=== PATIENT | female | born 1990 | race Caucasian/White ===

== ENCOUNTER 2020-01-07 13:13 | Outpatient (REF) | payer MEDICAID, SELFPAY ==
[2020-01-10 03:59] LABS: ~HepC Num1 0.09 S/CO (0.00-0.79); ~Hepatitis C Antibody Nonreactive (Nonreactive)
[2020-01-10 04:00] LABS: HIV AB/AG Nonreactive (Nonreactive); HIV Num 1 0.07 S/CO (0.00-0.99)
== END 2020-01-07 13:14 | disposition home or self-care (01) ==
LOC: HO.LAB 13:13
PROVIDERS: Visit Provider Internal Medicine
DX: Z20.6 Contact with and (suspected) exposure to human immunodeficiency virus [HIV] (principal)
CPT/HCPCS: 86803; 87389

== ENCOUNTER → 2020-01-21 15:30 | Outpatient (BNVA) | payer MEDICAID, SELFPAY | PROVIDERS: Visit Provider Internal Medicine | DX: Z76.89 Persons encountering health services in other specified circumstances (principal) ==

== ENCOUNTER → 2020-02-04 14:20 | Outpatient (BNVA) | payer MEDICAID, SELFPAY | PROVIDERS: Visit Provider Obstetrics & Gynecology | DX: B00.9 Herpesviral infection, unspecified (principal) | CPT/HCPCS: 99212 ==

== ENCOUNTER → 2020-02-11 12:46 | Outpatient (BNVA) | payer MEDICAID, SELFPAY | PROVIDERS: Visit Provider Advanced Practice Midwife | DX: B00.9 Herpesviral infection, unspecified (principal) | CPT/HCPCS: 99212 ==

== ENCOUNTER → 2020-07-17 14:36 | Outpatient (BNVA) | payer MEDICAID, SELFPAY | PROVIDERS: Visit Provider Obstetrics & Gynecology ==

== ENCOUNTER 2020-08-01 09:40 | Outpatient (REF) | payer MEDICAID, SELFPAY ==
[2020-08-01 12:22] LABS: HCG Quantitative < 2 mIU/mL
== END 2020-08-01 09:41 | disposition home or self-care (01) ==
LOC: HO.LAB 09:40
PROVIDERS: PCP Internal Medicine Geriatric Medicine; Visit Provider Obstetrics & Gynecology
DX: Z32.02 Encounter for pregnancy test, result negative (principal); N91.2 Amenorrhea, unspecified; Z88.1 Allergy status to other antibiotic agents
CPT/HCPCS: 36415; 84702; 99212

== ENCOUNTER → 2021-01-09 09:41 | Outpatient (BNVA) | payer MEDICAID, SELFPAY | PROVIDERS: PCP Internal Medicine Geriatric Medicine; Referring Provider Internal Medicine Geriatric Medicine; Visit Provider Physician Assistant Surgical ==

== ENCOUNTER → 2021-02-02 08:06 | Outpatient (BNVA) | payer MEDICAID, SELFPAY | PROVIDERS: PCP Internal Medicine Geriatric Medicine; Visit Provider Surgery ==

== ENCOUNTER 2021-02-05 10:06 | Outpatient (REF) | payer MEDICAID, SELFPAY ==
--- NOTE | ~2021-02-05 | XR_ITS ---
EXAMINATION: XR CHEST CLINICAL INFORMATION: Morbid obesity COMPARISON: Previous chest x-ray March 2019 TECHNIQUE: 2 views of the chest were obtained. FINDINGS: No significant abnormality is noted involving the heart, lungs, mediastinum, bony thorax or soft tissues. XR/XR chest 2V IMPRESSION: Unremarkable examination.
--- NOTE | 2021-02-05 10:17 | ECG_ITS ---
Test Reason : morbid obesity Blood Pressure : / mmHG Vent. Rate : 071 BPM Atrial Rate : 071 BPM P-R Int : 138 ms QRS Dur : 078 ms QT Int : 366 ms P-R-T Axes : 045 047 041 degrees QTc Int : 397 ms Sinus rhythm with marked sinus arrhythmia Otherwise normal ECG When compared with ECG of 26-MAR-2019 21:23, Heart rate has decreased Sinus Arrhythmia is new Referred By: Almas Olguin Electronically Signed By:LACEY BRYANT MD
[2021-02-05 10:34] LABS: MANUAL DIFF FLAG NO
[2021-02-05 11:00] LABS: Basophils Absolute Auto 0.1 X10*3/uL (0.0-0.2); Basophils Percent Auto 0.7 % (0-2); Eosinophils Absolute Auto 0.3 X10*3/uL (0.0-0.4); Eosinophils Percent Auto 3.3 % (0-4); Hemoglobin 11.7 g/dl (12.0-16.0); Imm Gran Abs Auto 0.04 X10*3/uL (0.00-0.03); Imm Gran Pct Auto 0.5 % (0.0-0.4); Lymphocytes Absolute Auto 2.1 X10*3/uL (1.2-4.9); Mean Corpuscular HGB Conc 31.6 g/dl (31.0-35.0); Mean Corpuscular Hemoglobin 26.8 pg (27.0-33.0); Mean Corpuscular Volume 84.9 fL (80.0-98.0); Mean Platelet Volume 11.9 fL (9.4-12.3); Monocytes Absolute Auto 0.5 X10*3/uL (0.1-1.2); Monocytes Percent Auto 6.1 % (2-11); Neutrophils Absolute Auto 5.8 x10*3/uL (2.0-8.3); Neutrophils Percent Auto 65.4 % (45-73); Platelet Count 351 X10*3/uL (160-400); Red Blood Count 4.36 X10*6/uL (4.20-5.50); Red Cell Distribution Width 13.7 % (11.0-16.0); White Blood Count 8.8 X10*3/uL (4.8-10.8)
[2021-02-05 11:12] LABS: Estimated Average Glucose 114 mg/dL; Hemoglobin A1c % 5.6 %
[2021-02-05 11:30] LABS: Alanine Aminotransferase 17 U/L (0-31); Albumin Level 4.1 g/dL (3.5-5.0); Alkaline Phosphatase 75 U/L (39-117); Anion Gap 12 (12-20); Aspartate Amino Transferase 16 U/L (5-31); Bilirubin Total 0.2 mg/dL (0.0-1.0); Blood Urea Nitrogen 7 mg/dL (9-16); C Reactive Protein 2.75 mg/dL (< or = 0.50); Calcium 9.2 mg/dL (8.4-10.2); Carbon Dioxide 28 mmol/L (22-29); Chloride 105 mmol/L (96-108); Cholesterol 208 mg/dL; Estimated Glomerular Filt Rate > 60; Glucose Random 110 mg/dL (60-115); HDL Cholesterol 35 mg/dL; Iron 36 mcg/dL (30-160); LDL Cholesterol Calculated 133 mg/dl; Percent Iron Saturation 9 % (15-50); Potassium 4.2 mmol/L (3.3-5.1); Sodium 141 mmol/L (135-145); Total Iron Binding Capacity 398 mcg/dL (228-428); Total Protein 7.9 g/dL (6.5-8.0); Triglycerides 203 mg/dL; Unsaturated Iron Binding 362 ug/dL
[2021-02-05 11:43] LABS: Ferritin 31 ng/mL (10-122); Insulin 21 uU/mL (2-29); TSH reflex Free T4 1.54 uIU/mL (0.32-4.0); Vitamin D 25-OH Total 14.9 ng/mL (>30)
[2021-02-05 12:29] LABS: Folate 17.9 ng/mL (> or = 4.0); Vitamin B12 387 pg/mL (200-900)
[2021-02-06 12:13] LABS: H Pylori Breath Test Negative (Negative)
[2021-02-07 12:12] LABS: Calcium (PTHI) 9.5 mg/dL (8.6-10.2); PTHI 61 pg/mL (14-64)
[2021-02-09 06:27] LABS: Vitamin B1 10 nmol/L (8-30)
[2021-02-09 14:11] LABS: Zinc 69 mcg/dL (60-130)
[2021-02-10 01:46] LABS: Vitamin A 35 mcg/dL (38-98)
== END 2021-02-05 10:07 | disposition home or self-care (01) ==
LOC: HO.XRAY 10:06
PROVIDERS: PCP Pediatrics; Visit Provider Surgery
DX: E66.01 Morbid (severe) obesity due to excess calories (principal); E78.5 Hyperlipidemia, unspecified
CPT/HCPCS: 36415; 71046; 80053; 80061; 82306; 82607; 82728; 82746; 83013; 83036; 83525; 83540; 83970; 84425; 84443; 84590; 84630; 85025; 86140; 93005; 99211

== ENCOUNTER → 2021-03-02 08:02 | Outpatient (BNVA) | payer MEDICAID, SELFPAY | PROVIDERS: PCP Internal Medicine Geriatric Medicine; Visit Provider Surgery ==

== ENCOUNTER → 2021-03-08 08:10 | Outpatient (BNVA) | payer MEDICAID, SELFPAY | PROVIDERS: PCP Internal Medicine Geriatric Medicine; Visit Provider Dietitian, Registered | DX: E66.01 Morbid (severe) obesity due to excess calories (principal) | CPT/HCPCS: 97802 ==

== ENCOUNTER → 2021-04-03 08:03 | Outpatient (BNVA) | payer MEDICAID, SELFPAY | PROVIDERS: PCP Internal Medicine Geriatric Medicine; Visit Provider Surgery ==

== ENCOUNTER → 2021-04-05 08:13 | Outpatient (BNVA) | payer MEDICAID, SELFPAY | PROVIDERS: PCP Internal Medicine Geriatric Medicine; Referring Provider Surgery; Visit Provider Dietitian, Registered | DX: E66.01 Morbid (severe) obesity due to excess calories (principal) | CPT/HCPCS: 97803 ==

== ENCOUNTER → 2021-05-02 08:24 | Outpatient (BNVA) | payer MEDICAID, SELFPAY | PROVIDERS: PCP Internal Medicine Geriatric Medicine; Visit Provider Surgery ==

== ENCOUNTER 2021-05-07 08:45 | Outpatient (REF) | payer MEDICAID, SELFPAY ==
--- NOTE | ~2021-05-07 | US_ITS ---
EXAMINATION: US COMPLETE ABDOMEN WITH LIVER ELASTOGRAPHY CLINICAL INFORMATION: Obesity COMPARISON: Previous CT of the abdomen and pelvis August 2019 TECHNIQUE: Real-time imaging of the abdominal viscera. Noninvasive ultrasound liver fibrosis assessment is performed using Jose ElastPQ point quantification shear wave elastography (2D-SWE) with a C5-2 MHz transducer. Multiple elastography samples are obtained. FINDINGS: PANCREAS: The visualized pancreatic head and body are normal in appearance. The remainder of the pancreas is obscured from visualization by the overlying bowel gas. ABDOMINAL AORTA: The proximal, middle, and distal aortic segments are normal in caliber. INFERIOR VENA CAVA: Visualized portions are normal. LIVER: Liver echotexture is slightly increased. The liver demonstrates normal size, and contour. No focal lesion or intrahepatic biliary duct dilatation. The right lobe measures 15 cm in length. The left lobe measures 11 cm in length. Portal flow is normal/hepatopedal Shear wave liver elastography median stiffness is 1.8 m/s (reference: normal median stiffness is 1.3 m/s or less). IQR/median stiffness to assess sampling precision is 0.02 (reference: good quality data set is IQR/median stiffness of 0.15 or less). GALLBLADDER: Normal. The gallbladder is physiologically distended without evidence of stones, sludge, polyps, wall thickening or pericholecystic fluid. COMMON BILE DUCT: Normal in caliber measuring 0.5 cm in diameter. RIGHT KIDNEY: Normal. No hydronephrosis. No renal calculi or focal parenchymal lesions. The kidney measures 12 cm in maximum dimension. LEFT KIDNEY: Normal. No hydronephrosis. No renal calculi or focal parenchymal lesions. The kidney measures 12 cm in maximum dimension. SPLEEN: Normal. The spleen measures 11.6 cm in maximum dimension. FREE FLUID: None. US/US abdomen comp w elastography IMPRESSION: 1. Impression: Echogenic liver. Limited visualization of the tail the pancreas. 2. Liver elastography: Adequate liver sampling. Suggestive of compensated advanced chronic liver disease but need further test for confirmation. REFERENCE: Society of Radiologists in Ultrasound Liver Stiffness Thresholds (2020): LIVER STIFFNESS THRESHOLDS: *Liver Stiffness equal or less than 1.3 m/s: High probability of being normal. *Liver Stiffness less than 1.7 m/s: In the absence of other known clinical signs, rules out compensated advanced chronic liver disease. *Liver Stiffness 1.7-2.1 m/s: Suggestive of compensated advanced chronic liver disease but need further test for confirmation. *Liver Stiffness over 2.1 m/s: Rules in compensated advanced chronic liver disease. *Liver Stiffness over 2.4 m/s: Suggestive of clinically significant portal hypertension. QUALITY OF DATA SET: *IQR/Median value equal or less than 0.15 implies a quality data set. *IQR/Median value over 0.15 implies a poor quality data set. SIGNIFICANT CHANGE FROM PRIOR EXAM: Significant change if liver stiffness measurement is 10% or greater from prior exam. OTHER CONSIDERATIONS: The stage of liver fibrosis may be overestimated in the setting of acute hepatitis, liver inflammation, elevated liver function tests, hepatic vascular congestion, obstructive cholestasis, non-fasting state, and infiltrative diseases such as amyloidosis and lymphoma. In some patients with NAFLD, the liver stiffness thresholds for compensated advanced chronic liver disease may be lower. In causes other than viral hepatitis and NAFLD, liver stiffness thresholds are not well established.
== END 2021-05-07 08:46 | disposition home or self-care (01) ==
LOC: HO.US 08:45
PROVIDERS: PCP Internal Medicine Geriatric Medicine; Visit Provider Surgery
DX: E66.01 Morbid (severe) obesity due to excess calories (principal); E78.5 Hyperlipidemia, unspecified
CPT/HCPCS: 76705; 76981

== ENCOUNTER 2021-05-09 08:53 | Outpatient (REF) | payer MEDICAID, SELFPAY ==
--- NOTE | ~2021-05-09 | FL_ITS ---
EXAMINATION: XR FLUOROSCOPY UPPER GI WITH AIR CLINICAL INFORMATION: Morbid to severe obesity due to excess calories. COMPARISON: None TECHNIQUE: Routine upper GI exam was performed in upright and lying position. FINDINGS: Following oral administration of thick barium and effervescent granules, there is normal propagation of bolus from the oral cavity through the pharynx, esophagus into stomach without any evidence of obstruction, narrowing or stricture. The course, caliber and peristalsis of the stomach and the duodenal bulb is normal. The mucosal pattern of esophagus, stomach and the duodenum is normal. FLUOROSCOPY TIME: 1.3 minutes. DOSE AREA PRODUCT: 31.449 uGy-m2 (microgray-meter squared). FL/FL upper GI w air IMPRESSION: Unremarkable upper GI air-contrast study.
== END 2021-05-09 08:54 | disposition home or self-care (01) ==
LOC: HO.XRAY 08:53
PROVIDERS: PCP Internal Medicine Geriatric Medicine; Visit Provider Surgery
DX: E66.01 Morbid (severe) obesity due to excess calories (principal)
CPT/HCPCS: 74246

== ENCOUNTER → 2021-06-29 08:14 | Outpatient (BNVA) | payer MEDICAID, SELFPAY | PROVIDERS: PCP Internal Medicine Geriatric Medicine; Visit Provider Surgery | DX: Z13.89 Encounter for screening for other disorder (principal) ==

== ENCOUNTER → 2021-07-20 14:00 | Outpatient (BNVA) | payer MEDICAID, SELFPAY | PROVIDERS: PCP Internal Medicine Geriatric Medicine; Referring Provider Internal Medicine Geriatric Medicine; Visit Provider Physician Assistant Surgical ==

== ENCOUNTER → 2021-08-06 08:16 | Outpatient (BNVA) | payer MEDICAID, SELFPAY | PROVIDERS: PCP Internal Medicine Geriatric Medicine; Visit Provider Surgery | DX: Z13.89 Encounter for screening for other disorder (principal) ==

== ENCOUNTER → 2021-08-10 12:08 | Outpatient (BNVA) | payer MEDICAID, SELFPAY | PROVIDERS: PCP Internal Medicine Geriatric Medicine; Referring Provider Internal Medicine Geriatric Medicine; Visit Provider Physician Assistant Surgical | DX: Z13.89 Encounter for screening for other disorder (principal) ==

== ENCOUNTER → 2021-08-21 15:02 | Outpatient (BNVA) | payer MEDICAID, SELFPAY | PROVIDERS: PCP Internal Medicine Geriatric Medicine; Referring Provider Internal Medicine Geriatric Medicine; Visit Provider Physician Assistant Surgical | DX: Z13.89 Encounter for screening for other disorder (principal) ==

== ENCOUNTER 2021-09-19 06:34 | Inpatient (IN) | payer MEDICAID, SELFPAY ==
[2021-09-14 11:43] LABS: MANUAL DIFF FLAG NO
[2021-09-14 12:08] LABS: Basophils Percent Auto 0.7 % (0-2); Eosinophils Absolute Auto 0.2 X10*3/uL (0.0-0.4); Eosinophils Percent Auto 3.3 % (0-4); Hematocrit 35.4 % (37.0-47.0); Imm Gran Abs Auto 0.02 X10*3/uL (0.00-0.03); Imm Gran Pct Auto 0.4 % (0.0-0.4); Lymphocytes Absolute Auto 1.2 X10*3/uL (1.2-4.9); Lymphocytes Percent Auto 25.9 % (20-40); Mean Corpuscular HGB Conc 31.1 g/dl (31.0-35.0); Mean Corpuscular Hemoglobin 26.3 pg (27.0-33.0); Mean Corpuscular Volume 84.5 fL (80.0-98.0); Monocytes Absolute Auto 0.5 X10*3/uL (0.1-1.2); Neutrophils Absolute Auto 2.7 x10*3/uL (2.0-8.3); Neutrophils Percent Auto 59.7 % (45-73); Platelet Count 319 X10*3/uL (160-400); Red Blood Count 4.19 X10*6/uL (4.20-5.50); Red Cell Distribution Width 14.7 % (11.0-16.0); White Blood Count 4.6 X10*3/uL (4.8-10.8)
[2021-09-14 12:29] LABS: INTERNATIONAL NORM RATIO 1.1 (0.9-1.1); Prothrombin Time 12.3 SEC (9.9-13.0)
[2021-09-14 12:32] LABS: Partial Thromboplastin Time 40.2 SEC (24.1-38.0)
[2021-09-14 13:11] LABS: Alanine Aminotransferase 19 U/L (0-31); Albumin Level 4.2 g/dL (3.5-5.0); Alkaline Phosphatase 74 U/L (39-117); Anion Gap 11 (12-20); Aspartate Amino Transferase 18 U/L (5-31); Bilirubin Total 0.4 mg/dL (0.0-1.0); Blood Urea Nitrogen 7 mg/dL (9-16); C Reactive Protein 3.28 mg/dL (< or = 0.50); Calcium 9.1 mg/dL (8.4-10.2); Carbon Dioxide 27 mmol/L (22-29); Chloride 107 mmol/L (96-108); Cholesterol 176 mg/dL; Estimated Glomerular Filt Rate > 60; Glucose Random 96 mg/dL (60-115); HDL Cholesterol 32 mg/dL; LDL Cholesterol Calculated 124 mg/dl; Potassium 4.3 mmol/L (3.3-5.1); Sodium 141 mmol/L (135-145); Total Protein 7.5 g/dL (6.5-8.0); Triglycerides 104 mg/dL
[2021-09-14 13:14] LABS: Estimated Average Glucose 108 mg/dL; Hemoglobin A1c % 5.4 %
[2021-09-14 13:33] LABS: Insulin 18 uU/mL (2-29); TSH reflex Free T4 0.75 uIU/mL (0.32-4.0)
--- NOTE | 2021-09-16 00:09 | MHC.SHP ---
Pre-Procedural Eval Section A Date of Service: 09/16/21 The patient is an INPATIENT: Yes The History & Physical has been completed within 30 days and I have reviewed it.: Yes Section B Chief Complaint: morbid obesity Relevant Family History (Specify if Yes): No Relevant Social History: None Present Medications: None Medical History: No relevant PMH History of Previous Operations: No relevant previous surgery Allergies: Allergies Allergy/AdvReac Type Severity Reaction Status Date / Time latex Allergy Severe Anaphylaxis Verified 09/13/21 15:11 red dye Allergy Severe Anaphylaxis Verified 09/13/21 15:11 amoxicillin Allergy Unknown UNKOWN Verified 09/13/21 15:11 Review of Systems Sugical H&P ROS: Negative: Constitution, Cardiovascular, Respiratory, Neurological, Psychiatric, Hem-Onc, Allergic/Immunologic, Gastrointestinal, Genitourinary, Musculoskeletal, Integumentary, Endocrine and Eyes/Ears/Nose/Throat Exam Surgical H&P Exam: Normal: HEENT, Normal: Heart, Normal: Lungs, Normal: Extremities, Normal: Abdomen, Normal: Skin and Normal: Neurological Plan Diagnosis/Plan: Unchanged I have reviewed the history and physical and performed a pertinent physical examination on my patient. No changes have occurred unless specified.
[2021-09-17 11:22] VITALS: BMI 42.5
--- NOTE | 2021-09-18 09:05 | P.CONAN_ITS ---
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) Herpes simplex virus (HSV) infection (Acute) Amenorrhea (Acute) Morbid obesity (Acute) Hyperlipidemia (Acute) Depression (Acute) Anxiety (Acute) Knee pain (Acute) MDD (major depressive disorder) (Acute) JEFFERY (generalized anxiety disorder) (Acute) Anemia (Acute) Vitamin D deficiency (Acute) Vitamin B12 deficiency (Acute) Past Medical History Medical History Anemia Anxiety Back pain delivery delivered Depression Hyperlipidemia Migraine with aura Family History Family History Father Mental health disorder Mother Acute arthritis Carpal tunnel syndrome Sister Cervical cancer Sister No problems noted. Brother No problems noted. Son No problems noted. Surgical History Surgical History H/O breast biopsy Hx of section Social History Social History (Updated 02/02/21 @ 11:35 by Armando Chow[facility]) Are you a primary direct support professional caregiver to a significant other at home: Yes (son age 5, mother will help after surgery) Do you presently have visiting nurse or other home services: No Alcohol intake: never Patient Tobacco Use Status: Former Tobacco user Quit Date: 2015 Tobacco use type: Cigarette Use of substances other than those prescribed or required for medical reasons: No Have you been hit, kicked, punched, or otherwise hurt by someone within the past year? If so, by whom?: No Are you DNR?: No Advance Directives: No (will bring dos) Advance Directives Information Provided: No Advance Directives on File: No Recently lost weight without trying: No Patient : No FDLMP: 08/29/2021 : No Poor oral hygiene: No Sexual orientation: Straight/Heterosexual Gender identity: Female Meds Allergies Allergy/AdvReac Type Severity Reaction Status Date / Time latex Allergy Severe Anaphylaxis Verified 09/17/21 11:21 red dye Allergy Severe Anaphylaxis Verified 09/17/21 11:21 amoxicillin Allergy Intermediate Blisters, Verified 09/17/21 11:21 hives Home Medications Medication Instructions Recorded Confirmed Last Taken Type fluticasone propionate 50 2 spray intranasal DAILY 01/09/21 09/13/21 Unknown History mcg/actuation nasal spray,suspension Exam Exam Date and Time: September 18, [id number] Height,Weight and Vital Signs: Height 5 ft 4 in Weight 112.491 kg Pertinent Lab Results Pertinent Lab Results: Laboratory Tests 09/14/21 09/14/21 09/14/21 11:39 11:42 11:42 WBC 4.6 L RBC 4.19 L Hgb 11.0 L Hct 35.4 L MCV 84.5 MCH 26.3 L MCHC 31.1 RDW 14.7 Plt Count 319 MPV 12.0 Immature Gran % (Auto) 0.4 Neut % (Auto) 59.7 Lymph % (Auto) 25.9 [place] % (Auto) 10.0 Eos % (Auto) 3.3 Baso % (Auto) 0.7 Lymph # (Auto) 1.2 [place] # (Auto) 0.5 Eos # (Auto) 0.2 Baso # (Auto) 0.0 Abs Immat Gran (auto) 0.02 Absolute Neuts (auto) 2.7 Absolute Nucleated RBC 0.000 Nucleated RBC % (auto) 0.0 PT 12.3 INR 1.1 APTT 40.2 H Sodium Potassium Chloride Carbon Dioxide Anion Gap BUN Creatinine Estim Creat Clear Calc Estimated GFR Random Glucose Estimat Average Glucose Hemoglobin A1c % Insulin Level Calcium Total Bilirubin AST ALT Alkaline Phosphatase C-Reactive Protein Total Protein Albumin Triglycerides Cholesterol LDL Cholesterol, Calc HDL Cholesterol TSH Blood Type O Negative Antibody Screen NEGATIVE 09/14/21 09/14/21 11:42 11:42 WBC RBC Hgb Hct MCV MCH MCHC RDW Plt Count MPV Immature Gran % (Auto) Neut % (Auto) Lymph % (Auto) [place] % (Auto) Eos % (Auto) Baso % (Auto) Lymph # (Auto) [place] # (Auto) Eos # (Auto) Baso # (Auto) Abs Immat Gran (auto) Absolute Neuts (auto) Absolute Nucleated RBC Nucleated RBC % (auto) PT INR APTT Sodium 141 Potassium 4.3 Chloride 107 Carbon Dioxide 27 Anion Gap 11 L BUN 7 L Creatinine 0.70 Estim Creat Clear Calc TNP Estimated GFR > 60 Random Glucose 96 Estimat Average Glucose 108 Hemoglobin A1c % 5.4 Insulin Level 18 Calcium 9.1 Total Bilirubin 0.4 AST 18 ALT 19 Alkaline Phosphatase 74 C-Reactive Protein 3.28 H Total Protein 7.5 Albumin 4.2 Triglycerides 104 Cholesterol 176 LDL Cholesterol, Calc 124 HDL Cholesterol 32 TSH 0.75 Blood Type Antibody Screen Narrative Narrative: EKG 01/2021 Vent. Rate : 071 BPM ? ? Atrial Rate : 071 BPM ?? P-R Int : 138 ms? QRS Dur : 078 ms ? ? QT Int : 366 ms ? ? ? P-R-T Axes : 045 047 041 degrees ?? QTc Int : 397 ms ? 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) Herpes simplex virus (HSV) infection (Acute) Amenorrhea (Acute) Morbid obesity (Acute) Hyperlipidemia (Acute) Depression (Acute) Anxiety (Acute) Knee pain (Acute) MDD (major depressive disorder) (Acute) JEFFERY (generalized anxiety disorder) (Acute) Anemia (Acute) Vitamin D deficiency (Acute) Vitamin B12 deficiency (Acute) Denies MARLEEN Past Medical History Medical History Anemia Anxiety Back pain delivery delivered Depression Hyperlipidemia Migraine with aura Family History Family History Father Mental health disorder Mother Acute arthritis Carpal tunnel syndrome Sister Cervical cancer Sister No problems noted. Brother No problems noted. Son No problems noted. Family history of problems with anesthesia: No Surgical History Surgical History H/O breast biopsy Hx of section History of Problems with Anesthesia: No (Difficult IV stick) Social History Social History (Updated 02/02/21 @ 11:35 by Armando [facility]) Are you a primary direct support professional caregiver to a significant other at home: Yes (son age 5, mother will help after surgery) Do you presently have visiting nurse or other home services: No Alcohol intake: never Patient Tobacco Use Status: Former Tobacco user Quit Date: 2015 Tobacco use type: Cigarette Use of substances other than those prescribed or required for medical reasons: No Have you been hit, kicked, punched, or otherwise hurt by someone within the past year? If so, by whom?: No Are you DNR?: No Advance Directives: No (will bring dos) Advance Directives Information Provided: No Advance Directives on File: No Recently lost weight without trying: No Patient : No FDLMP: 08/29/2021 : No Poor oral hygiene: No Sexual orientation: Straight/Heterosexual Gender identity: Female Meds Allergies Allergy/AdvReac Type Severity Reaction Status Date / Time latex Allergy Severe Anaphylaxis Verified 09/17/21 11:21 red dye Allergy Severe Anaphylaxis Verified 09/17/21 11:21 amoxicillin Allergy Intermediate Blisters, Verified 09/17/21 11:21 hives Home Medications Medication Instructions Recorded Confirmed Last Taken Type fluticasone propionate 50 2 spray intranasal DAILY 01/09/21 09/13/21 Unknown History mcg/actuation nasal spray,suspension Exam Height,Weight and Vital Signs: Height 5 ft 4 in Weight 112.491 kg Vital Signs Temp Pulse Resp BP Pulse Ox O2 Del Method 09/19/21 06:46 96.9 F 76 18 118/76 99 Room Air Pertinent Lab Results Pertinent Lab Results: Laboratory Tests 09/14/21 09/14/21 09/14/21 11:39 11:42 11:42 WBC 4.6 L RBC 4.19 L Hgb 11.0 L Hct 35.4 L MCV 84.5 MCH 26.3 L MCHC 31.1 RDW 14.7 Plt Count 319 MPV 12.0 Immature Gran % (Auto) 0.4 Neut % (Auto) 59.7 Lymph % (Auto) 25.9 [place] % (Auto) 10.0 Eos % (Auto) 3.3 Baso % (Auto) 0.7 Lymph # (Auto) 1.2 [place] # (Auto) 0.5 Eos # (Auto) 0.2 Baso # (Auto) 0.0 Abs Immat Gran (auto) 0.02 Absolute Neuts (auto) 2.7 Absolute Nucleated RBC 0.000 Nucleated RBC % (auto) 0.0 PT 12.3 INR 1.1 APTT 40.2 H Sodium Potassium Chloride Carbon Dioxide Anion Gap BUN Creatinine Estim Creat Clear Calc Estimated GFR Random Glucose Estimat Average Glucose Hemoglobin A1c % Insulin Level Calcium Total Bilirubin AST ALT Alkaline Phosphatase C-Reactive Protein Total Protein Albumin Triglycerides Cholesterol LDL Cholesterol, Calc HDL Cholesterol TSH Blood Type O Negative Antibody Screen NEGATIVE 09/14/21 09/14/21 11:42 11:42 WBC RBC Hgb Hct MCV MCH MCHC RDW Plt Count MPV Immature Gran % (Auto) Neut % (Auto) Lymph % (Auto) [place] % (Auto) Eos % (Auto) Baso % (Auto) Lymph # (Auto) [place] # (Auto) Eos # (Auto) Baso # (Auto) Abs Immat Gran (auto) Absolute Neuts (auto) Absolute Nucleated RBC Nucleated RBC % (auto) PT INR APTT Sodium 141 Potassium 4.3 Chloride 107 Carbon Dioxide 27 Anion Gap 11 L BUN 7 L Creatinine 0.70 Estim Creat Clear Calc TNP Estimated GFR > 60 Random Glucose 96 Estimat Average Glucose 108 Hemoglobin A1c % 5.4 Insulin Level 18 Calcium 9.1 Total Bilirubin 0.4 AST 18 ALT 19 Alkaline Phosphatase 74 C-Reactive Protein 3.28 H Total Protein 7.5 Albumin 4.2 Triglycerides 104 Cholesterol 176 LDL Cholesterol, Calc 124 HDL Cholesterol 32 TSH 0.75 Blood Type Antibody Screen Laboratory Results - last 24 hr 09/18/21 09/19/21 12:56 06:12 Urine Test NEGATIVE COVID-19 (YAMILKA) Negative COVID-19 Clin Com See Note Airway Mallampati Class: II TM Dist: >3cm Neck ROM: Full Loose/Missing/Broken Teeth: No (Per patient) Heart: RRR Lungs: Diminished but clear Assessment and Plan Assessment Anesthesia Assessment: Anesthesia Plan Discussed Final Anesthetic Review Family History of Problems with Anesthesia: No History of Problems with Anesthesia: No (Difficult IV stick) NPO: Yes ASA Class: III Final Preanesthetic Review: No Changes in Pt Med Stat, Meds/Allgs Chart Reviewed, Consent Obtained/Reviewed and Anes Risks/Benef Reviewed Patient Risk: Intermediate Procedure Risk: Intermediate Assessment/Block/Sedation in SS: Assess/Block/Sedation-SS Anesthetic Plan Anesthetic Plan: GA Disposition: Standard PACU and Inp. Admit - Standard Bed
[2021-09-18 13:31] LABS: COVID-19 Test Negative (Negative)
[2021-09-19] VITALS (13 sets, daily range): BP systolic 118–169; BP diastolic 75–98; PULSE 60–83; RESP 13–18; TEMP 36.1–37.1; O2SAT 95–100
[2021-09-19 06:36] LABS: UPreg QC Valid YES; Urine Pregnancy NEGATIVE (NEGATIVE)
[2021-09-19] MEDS: Lactated Ringers 1,000 ML 999 ML IV (06:51)
--- NOTE | 2021-09-19 06:52 | PC.NURSE ---
Difficult IV acess. Preop calls for 2 IV insertions. Able to start one IV in right hand. Second IV to be done in OR
[2021-09-19] MEDS: Lactated Ringers 1,000 ML 100 ML IVCONT ×3 (07:24→19:28)
[2021-09-19] MEDS: levoFLOXacin/D5W 500 MG/100 ML PIGGYBACK 100 MG IV (07:56)
--- NOTE | 2021-09-19 07:58 | PHA.MEDREC ---
Pharmacy Consult ? Medication Reconciliation Pharmacy has completed the medication reconciliation.
--- NOTE | 2021-09-19 11:11 | P.BOP_ITS ---
Brief Operative Note Date of Service: 09/19/21 Pre-op diagnosis: Morbid obesity with comorbidities (see below) Post-op diagnosis: same Procedure: INITIAL PATIENT BMI ON PRESENTATION AT OUR OFFICE: 44 kg/m2 LAST BMI BEFORE SURGERY: 42 kg/m2 COMORBIDITIES:headaches, back/knee pain, depression, anxiety, hyperlipidemia, liver steatosis ?The patient presented to the Weight Management Program with significant obesity that was negatively impacting the patient's comorbidities as listed above.? The program is a phased program with a special focus on preoperative medical weight management to promote substantial weight loss and prepare the patients for the second phase of the program: bariatric surgery. The patient participated in an intensive weekly lifestyle ?intervention and exercise program during which the patient ?has lost between the initial office visit and the last preoperative visit 12.2 lbs, or 4.67% of initial actual body weight. It was deemed appropriate for the patient to now have bariatric surgery. In light of the current Covid-19 pandemic and the well documented strong association of obesity and increased risk of worse outcomes if infected with Covid-19 (REFERENCES: https://pubmed.ncbi.nlm.nih.gov/20726702/ ,? https://pubmed.ncbi.nlm.nih.gov/93217847/ ), any delay in undergoing bariatric surgery may lead to the patient's worsening health condition and increased?risk of more severe Covid-19 disease if infected. In addition a recent?study from [facility] published in [facility] on 03/19/2021 ([id number]) found that, among patients with obesity, substantial weight loss achieved with surgery was associated with improved outcomes of COVID-19 infection. The findings suggest that obesity can be a modifiable risk factor for the severity of COVID-19 infection. In addition, the patient met the BMI-criteria for bariatric surgery based on the BMI on initial presentation. The patient should not be penalized for achieving such weight loss because ?it is not sustainable long-term without surgical intervention and it was achieved in preparation for bariatric surgery ?under my direction and based on my published research ([email or web address]).[email or web address] and? https://www.soard.org/article/[email or web address](56)95255-X/pdf ) ?that a 10% pr eoperative weight loss improves long-term weight loss after surgery and reduces perioperative complications.? Insurance carriers such as [facility] have endorsed my recommendations ?and have included in their policies criteria to include a 10% preoperative weight loss requirement. PROCEDURE: Esophago-gastroscopy, laparoscopic lysis of adhesions, laparoscopic sleeve gastrectomy and laparoscopic gastropexy INDICATIONS: This is a 30 year-old female who was electively scheduled for laparoscopic, possibly open sleeve gastrectomy. The risks and complications of the procedure were discussed with the patient in advance, particularly the possibility of ; pulmonary embolism; staple line leak; bleeding; GERD; cardiac, pulmonary, or renal complications; as well as long-term problems such as insufficient weight loss, vitamin deficiency, strictures, or ulcers. The patient understood all the risks, and was in agreement to proceed with surgery. DESCRIPTION OF PROCEDURE: After informed consent was obtained from the patient, the patient was given preoperative antibiotics, and was transferred to the operating room. After successful induction of general anesthesia, pneumatic compression devices were placed on both lower extremities. An upper endoscopy was performed next. The oropharynx and esophagus appeared to be within normal limits. There was no diaphragmatic hernia present consistent with the findings of the preoperative upper GI. The stomach was entered. Then after all fluid and air were suctioned and the stomach was fully decompressed, the scope was withdrawn and secured in the mid esophagus. The patient was then prepped and draped in the usual sterile manner, and abdominal access was established at the right upper quadrant with the Fred technique. A 12 mm blunt port was inserted, and the abdomen was insufflated with CO2 to a pressure of 15 mmHg. Under direct visualization, additional ports were placed, specifically two 5 mm Versi-step ports to the left upper quadrant, and a 5 mm Versi-Step port to the right upper quadrant. 1% lidocaine plain was used to infiltrate all port sites as well as all fascia defects. Following that, the patient was placed in a steep reverse Trendelenburg position. An additional 5 mm port was placed to the right flank for the Mediflex retractor that was used to retract the left lobe of the liver. The gastro-esophageal fat pad was opened with the ultrasonic device (Thunderbeat, Olympus) and the anterior esophagus and hiatus were exposed. The angle of His was opened with the ultrasonic device the fundus of the stomach from any diaphragmatic and splenic attachments. I then opened the gastrocolic ligament between the transverse colon and the greater curvature of the stomach with the ultrasonic device to enter the lesser sac and facilitate the ligation of the short gastric vessels. I started at a mid-point along the greater curvature and using the Thunderbeat, all short gastric vessels were divided all the way to the angle of His until the left dulce was completely dissected at its entirety. I then divided the gastro-colic ligament distally to a distance of about 3-4 cm proximal to the pylorus. There were extensive congenital adhesions between the pancreas and posterior gastric wall. Those were lysed completely with the ultrasonic device. Adhesiolysis took approximately 45 min to complete. The stomach was then divided transversely with one Endo FORREST-45 purple, one FORREST- 45 orange load and four FORREST-60 articulating orange loads using the AEON stapler and loads. Every effort was made that the gastric sleeve had a tubular shape and an even caliber throughout. Once the sleeve resection was completed, the staple line of the gastric sleeve was reinforced with Hemoclips. The resected stomach was retrieved without difficulty from the Fred port. A gastropexy was then performed in order to prevent postoperative GERD and partial gastric volvulus. Several interrupted 2.0 Surgidac sutures were placed between the sleeve's staple line and the previously divided greater omentum and gastro-colic ligament using the Endo-Stitch device. ?An upper endoscopy was performed. There was no narrowing at the GE junction. T he scope was easily advanced all the way to the pylorus which was clearly visualized. There was no narrowing anywhere and the sleeve's caliber was even throughout. The sleeve's staple line was inspected and there was no evidence of ischemia, bleeding or dehiscence. At that point the gastroscope was withdrawn from the patient?s mouth while we were decompressing the bowel and the stomach from any remaining air. I looked into the lesser sac to see how the sleeve was situating and it was situating well. There was no bleeding from the staple line, spleen, or short gastric vessels. The Mediflex retractor was removed, and the undersurface of the liver was inspected and there was no bleeding. The patient was placed in supine position. I closed the fascial defect of the 12 mm port site with a figure of eight #1 Polysorb suture. Then 40ml of Ropivacaine plain with 10 mg of Dexamethasone were used to infiltrate the fascial closure as well as all skin incisions. A total of 7ml of Zynrelef was applied in the Fred wound. At this point, the abdomen was deflated, all ports were removed under direct vision, and no bleeding was noted from any of the port sites. The skin incisions were irrigated with saline and were closed with 4-0 absorbable monofilament sutures. Steri-Strips and OpSites were used to cover all incisions. The patient was extubated and was transferred in stable condition to the recovery room for further care. I was present and performed all castro parts of the procedure. Ms. Michaelsaishwarya was the assistant professor of spanish. There were no residents to assist with this case. Tk Olguin MD, PhD, FACS Surgeon: Almas Olguin MD Anesthesia: GETA, local and other (TAP block & 7ml of Zynrelef) Was an Internet Specialist used for this Procedure?: Yes Internet Specialist: Yadira Crawford Estimated blood loss (mL): 10 IV fluids (mL): 3,000 Urine output (mL): 0 (No Byrd to record) Pathology: other (Stomach) Condition: stable Disposition: PACU
[2021-09-19] MEDS: ondansetron HCL 4 MG/2 ML VIAL IVPUSH ×2 (11:14→20:50)
--- NOTE | 2021-09-19 11:15 | PM.PNGS ---
Subjective Subjective Date of Service: 09/20/21 Interval history: Feels well. Mild incisional pain. She is tolerating phase 1 bariatric diet Physical Exam Vital Signs: Vital Signs: Last Vital Signs Temp 96.9 F 09/19/21 06:46 Pulse 76 09/19/21 06:46 Resp 18 09/19/21 06:46 BP 118/76 09/19/21 06:46 Pulse Ox 99 09/19/21 06:46 O2 Del Method 09/19/21 06:46 BMI result Body Mass Index 42.5 GI: Inspection: Yes normal to inspection, Yes incision (clean, dry and intact) and Yes obesity Extrem: Right lower extremity: normal to inspection (no calf tenderness) Left lower extremity: normal to inspection (no calf tenderness) Objective Data Active Medications Fentanyl (Fentanyl Citrate/Pf 100 Mcg/2 Ml Vial) 25 mcg IVPUSH Q5M PRN; Protocol PRN Reason: Pain, Moderate (Pain Scale 4-6 Hydromorphone HCl (Hydromorphone Hcl 0.5 Mg/0.5 Ml Syringe) 0.25 mg IVPUSH Q5M PRN; Protocol PRN Reason: Pain, Severe (Pain Scale 7-10) Hydroxyzine HCl (Hydroxyzine Hcl 25 Mg Tablet) 12.5 - 25 mg PO BID PRN PRN Reason: anxiety Lactated Ringer's (Lr) 1,000 mls @ 100 mls/hr IVCONT .Q10H KULDIP Last Admin: 09/19/21 07:24 Dose: 100 mls/hr Documented By: KYA Promethazine HCl 6.25 mg/ (Sodium Chloride) 50.25 mls @ 201 mls/hr IV ONCE PRN PRN Reason: Nausea and Vomiting Ondansetron HCl (Ondansetron Hcl 4 Mg/2 Ml Vial) 4 mg IVPUSH ONCE PRN PRN Reason: Nausea and Vomiting Labs CBC & Chem 7: 09/20/21 05:34 09/20/21 05:34 Labs: Laboratory Results - last 24 hr 09/18/21 09/19/21 12:56 06:12 Urine Test NEGATIVE COVID-19 (YAMILKA) Negative COVID-19 Clin Com See Note Procedures Date of Service Date of Service: 09/20/21 Progress Note: A&P Assessment and plan (1) Morbid obesity: Status: Acute Assessment and Plan: s/p laparoscopic sleeve gastrectomy, lysis of adhesions and gastropexy Doing well Will check am labs and if OK the patient will be discharged home (2) Knee pain: Status: Acute (3) JEFFERY (generalized anxiety disorder): Status: Acute (4) Hyperlipidemia: Status: Acute (5) Depression: Status: Acute (6) Steatosis, liver: Status: Acute (7) Congenital intra-abdominal adhesions: Status: Acute (8) Status post sleeve gastrectomy: Status: Acute Time Spent With Patient Time: Total time spent is greater than 50% in coordination of care (as documented) at patient's floor/unit and/or counseling patient: Quality Stroke Does the patient have a stroke diagnosis?: No VTE Prior VTE?: No VTE Risk Level:: Surgical - moderate VTE Device Contraindication: N/A - Device Ordered VTE Drug Contraindication: Treatment Not Indicated
--- NOTE | 2021-09-19 11:27 | P.DS_ITS ---
DS: Providers Provider Date of Service: 09/20/21 Date of admission: 09/19/21 06:34 Date of discharge: 09/20/21 Primary care physician: Javy Pena MD DS: Diagnosis Discharge Diagnosis (1) Morbid obesity: Status: Acute (2) Status post sleeve gastrectomy: Status: Acute (3) Knee pain: Status: Acute (4) JEFFERY (generalized anxiety disorder): Status: Acute (5) Hyperlipidemia: Status: Acute (6) Depression: Status: Acute (7) Steatosis, liver: Status: Acute DS: Summary Time Spent with Patient Time attestation: Total time spent providing and/or coordinating discharge services: Discharge coordination time: Less than 30 minutes Quality: Safe Use of Opioids Does Pt have an Active Cancer Diagnosis on the Problem List?: No Quality: Stroke Does the patient have a stroke diagnosis?: No Physical Exam Vital Signs: Vital Signs: Last Vital Signs Temp 98 F 09/19/21 11:05 Pulse 72 09/19/21 11:10 Resp 14 09/19/21 11:10 BP 132/97 H 09/19/21 11:10 Pulse Ox 98 09/19/21 11:10 O2 Del Method 09/19/21 11:10 O2 Flow Rate 6 09/19/21 11:10 BMI result Body Mass Index 42.5 DS: Data Data Completed and Pending Pending studies at discharge: Pending at discharge 09/19/21 10:04 Surgical [PTH] Routine Labs on day of discharge: Laboratory Results - last 24 hr 09/18/21 09/19/21 12:56 06:12 Urine Test NEGATIVE COVID-19 (YAMILKA) Negative COVID-19 Clin Com See Note Discharge Plan Discharge Patient Disposition: Home, Self-Care Discharge Diagnosis: s/p sleeve gastrectomy and gastropexy Referrals: Javy Pena MD [Primary Care Provider] - 1 Week Discharge Medications: Continued hydroxyzine HCl 25 mg tablet 0.5 - 1 tab PO BID PRN (Reason: anxiety) pantoprazole 40 mg tablet,delayed release (DR/EC) 40 mg PO DAILY Qty: 30 2RF sucralfate 100 mg/mL suspension 10 ml PO BID Qty: 400 2RF ondansetron HCl 4 mg tablet 4 mg PO Q12H Qty: 20 0RF fluticasone propionate 50 mcg/actuation spray,suspension 2 spray intranasal DAILY Discontinued multivitamin Tablet 1 tab PO DAILY norethindrone (contraceptive) 0.35 mg tablet 1 tab PO DAILY polyethylene glycol 3350 [Miralax] 17 gram powder in packet 17 g PO DAILY Qty: 14 0RF Rx Instructions: Mix each packet with 8oz of water and do 7 packets on 09/17/21 and another 7 packets on 09/18/21 Vitron-C 65 mg iron- 125 mg tablet,delayed release (DR/EC) 1 tab PO DAILY Qty: 30 2RF Rx Instructions: swallow whole; do not chew/break/dissolve/open cholecalciferol (vitamin D3) 125 mcg (5,000 unit) capsule 125 mcg PO DAILY Qty: 30 2RF Discharge Orders: Discharge Order (Routine); Ordered 09/20/21 Ordered By: Almas Olguin Activity on Discharge: No heavy lifting Stand Alone Forms: Patient Portal Discharge page Care Plan Goals: weight loss Health Concerns: morbid obesity Plan of Treatment: No tub baths, sex or returning to work until discussed at first post op appointment. No exercise, alcohol, tobacco or illegal drug use. Continue to use incentive spirometer hourly while awake. Walk in home for 5- 10 minutes every 2 hours during the first week. Follow all instructions in the bariatric handbook and call with any questions.Discharge Instructions 1. Please call your doctor or come back to the emergency room should any new sy mptoms arise. 2. You will receive a courtesy call from [facility] 24-48 hours after discharge. 3. Activity: abstain from alcohol, practice limited stair climbing, no bending, no driving, no exercise, no illicit substances, no lifting, no sex, no tub bath, no work. 4. Diet: continue as discussed with Dr. Olguin. 5. Dressing Change/Wound Care: Your incision is covered by clear bandages and guaze underneath. If the area is tender, you may apply an ice pack for short intervals (no more than 20 minutes on, followed by at least 20 minutes off). Do not apply heat. Do not use creams, lotions, or topical antibiotics unless instructed to do so by your surgeon. These can cause infection or allergic reaction. 6. Call your doctor if: - Your temperature exceeds 101.5 F - You experience excessive pain or swelling - You have an unexpected reaction to medication - You have excessive bleeding - You experience continued vomiting/nausea - Your incision begins to separate - Your incision shows signs of infection such as increased redness, swelling, excessive pain, heat, or drainage (light blood or clear fluid is normal) 7. General instructions: No lifting greater than 5 lbs for the next 4 weeks[address] within 24 hours of taking narcotic pain medications. If you do not move your bowels in the next 2 days, please take milk of magnesia over the counter. Please follow the post op diet and do not advance your diet until you are seen in the office in about 2 weeks. Please walk around your home every hour or two to prevent blood clots from forming in your legs. You do not need to wake from sleeping to walk. Please sleep in a bed or couch to prevent kinking at the hips and knees. Please take your incentive spirometer (your lung blending line attendant) home with you and use it for the next few days to prevent pneumonias. You may shower, no hot tubs, baths or swimming pools. Please call the office with any questions or concerns such as increasing abdominal pain, fever, chills, shortness of breath, chest pain, leg pain or swelling, or redness or drainage from your incisions. Please stay on stage 3 diet which includes sugar free clear liquids such as ice pops and jello and broth and crystal light. Avoid all carbonation. Please drink 3 protein shakes with at least 25-30 grams of protein daily or 3 of the Celebrate 4:1 shakes which can be purchased in our office. The Celebrate shakes have all of the bariatric vitamins you need if you consume these shakes. If you are drinking other protein shakes, you will need to purchase the Celebrate multivitamins and calcium that we provide in the office (they will provide all the vitamins you need). Please make sure you are consuming at least 40-60 ounces of water in addition to your 3 protein shakes daily. Do not hesitate to contact the office with any questions at . The patient's medical history has been reviewed and they are considered low risk for post op DVT and therefore DVT prophylaxis is not considered necessary. Travel after surgery was reviewed. The patient has not disclosed any travel plans during the first 30 days after surgery and they have been advised that within the first 30 days after surgery any bus, plane, train or car travel over 2 hours in duration is contraindicated due to the possibility of developing blood clots from immobility. Any travel, needs to include periods of ambulation of 10 minutes in duration every 2 hours.? The patient was instructed to discuss any plans for travel during this period with their bariatric surgeon. Assessment: s/p sleeve gastrectomy with gastropexy Discharge Date/Time: 09/20/21 10:13
[2021-09-19] MEDS: Famotidine/PF 20 MG/2 ML VIAL IVPUSH ×2 (11:43→20:50)
[2021-09-19 11:53] LABS: Hemoglobin 11.2 g/dl (12.0-16.0)
[2021-09-19 12:23] LABS: Anion Gap 11 (12-20); Blood Urea Nitrogen 8 mg/dL (9-16); Calcium 8.2 mg/dL (8.4-10.2); Carbon Dioxide 26 mmol/L (22-29); Chloride 107 mmol/L (96-108); Creatinine Clr Calc Pharmacy 141.7; Estimated Glomerular Filt Rate > 60; Glucose Random 149 mg/dL (60-115); Potassium 4.3 mmol/L (3.3-5.1); Sodium 140 mmol/L (135-145)
[2021-09-19] MEDS: Metoclopramide HCl 10 MG/2 ML VIAL IVPUSH (17:24)
[2021-09-20 03:59] VITALS: BP 146/77; PULSE 67; RESP 17; TEMP 37.2; O2SAT 96
[2021-09-20] MEDS: ondansetron HCL 4 MG/2 ML VIAL IVPUSH (05:00)
[2021-09-20] MEDS: Lactated Ringers 1,000 ML 100 ML IVCONT (05:05)
[2021-09-20 06:19] LABS: MANUAL DIFF FLAG NO
[2021-09-20 06:27] LABS: Basophils Percent Auto 0.1 % (0-2); Hemoglobin 10.3 g/dl (12.0-16.0); Imm Gran Abs Auto 0.07 X10*3/uL (0.00-0.03); Imm Gran Pct Auto 0.7 % (0.0-0.4); Lymphocytes Absolute Auto 1.7 X10*3/uL (1.2-4.9); Lymphocytes Percent Auto 17.5 % (20-40); Mean Corpuscular HGB Conc 31.2 g/dl (31.0-35.0); Mean Corpuscular Volume 83.3 fL (80.0-98.0); Mean Platelet Volume 12.2 fL (9.4-12.3); Monocytes Absolute Auto 0.5 X10*3/uL (0.1-1.2); Monocytes Percent Auto 5.5 % (2-11); Neutrophils Absolute Auto 7.5 x10*3/uL (2.0-8.3); Neutrophils Percent Auto 76.2 % (45-73); Platelet Count 329 X10*3/uL (160-400); Red Blood Count 3.96 X10*6/uL (4.20-5.50); Red Cell Distribution Width 14.4 % (11.0-16.0); White Blood Count 9.8 X10*3/uL (4.8-10.8)
[2021-09-20] MEDS: Famotidine/PF 20 MG/2 ML VIAL IVPUSH (07:06)
[2021-09-20 07:12] LABS: Anion Gap 12 (12-20); Blood Urea Nitrogen 6 mg/dL (9-16); Calcium 8.6 mg/dL (8.4-10.2); Carbon Dioxide 25 mmol/L (22-29); Chloride 107 mmol/L (96-108); Creatinine Clr Calc Pharmacy 148.1; Estimated Glomerular Filt Rate > 60; Glucose Random 106 mg/dL (60-115); Potassium 4.7 mmol/L (3.3-5.1); Sodium 139 mmol/L (135-145)
[2021-09-20 07:32] VITALS: BP 137/71; PULSE 66; RESP 18; TEMP 36.5; O2SAT 94
--- NOTE | 2021-09-20 09:07 | MHC.CM.PN ---
NURSE JAREK WOMENS VOLLEYBALL COACH NOTE ELECTRONIC MEDICAL RECORD REVIEWED ALONG WITH CASE DISCUSSED WITH STAFF NURSE , MET WITH PATIENT AND SHE IS AWARE THAT SHE WILL BE DISCHARGED HOME TODAY , S/P BARIATRIC SURGERY ON 09/19/21 PATIENT LIVES ALONE , SHE CURRENTLY IS UNEMPOYED AND IS ON SSDI AND [employer] , SHE IS INDEPENDENT IN ALL ADLS AND MOBILITY WOITHOUT ANY DEVICES , SHE HAS NO VNA , NO DME SERVICES IN THE HOME , DISCHARGE PLAN HOME WITH NO SERVICES PCP DR LIGIA WOLF INSTRUCTED TO CALL HER PCP FOR POST HOSPITLA DISCHARGE FOLLOW UP BARIATRIC SURGEON FOLLOW UP PER DISCHRGE INSTRUCTSION TRANS[PORTATION FAMILY/FRIEND EDUCATED ABOUT THE IMPORTANCE OF HAVING A HCP AND DECLINED AT THIS TIME NON VACINATED , DENIES ANY FINANCIAL DIFFICULITIES WITH OBTAING ANY OF HER MEDICATIONS FROM THE PHARMACY SELF RESUMPTION OF HER MENTAL HEALTH COUNSELING SERVICES
--- NOTE | 2021-09-21 11:50 | PM.DS ---
DS: Providers Provider Date of Service: 09/20/21 Date of admission: 09/19/21 06:34 Date of discharge: 09/20/21 Primary care physician: Javy Pena MD DS: Diagnosis Discharge Diagnosis (1) Morbid obesity: Status: Acute (2) Status post sleeve gastrectomy: Status: Acute (3) Knee pain: Status: Acute (4) JEFFERY (generalized anxiety disorder): Status: Acute (5) Hyperlipidemia: Status: Acute (6) Depression: Status: Acute (7) Steatosis, liver: Status: Acute DS: Summary Hospital Course Hospital Course: ADMITTING DIAGNOSIS: morbid obesity,?HLD, anxiety, depression, joint pain, liver steatosis DISCHARGE DIAGNOSIS: same, s/p laparoscopic sleeve gastrectomy and gastropexy PAST SURGICAL HISTORY:?, breast biopsy PROCEDURE: upper endoscopy, laparoscopic sleeve gastrectomy and gastropexy DISCHARGE SUMMARY: History of Present Illness: The patient is a?30 year-old woman with a BMI of?42.6 kg/m2 and associated co-morbidities as described above. The patient had extensive work-up, lost?10.6 lbs preoperatively and was electively scheduled for laparoscopic, possible open sleeve gastrectomy and gastropexy. Risks and complications of the surgery were discussed with the patient in advance, particularly the possibility of , pulmonary embolism, anastomotic leak, bleeding, bowel injury, GERD, cardiac, renal or pulmonary complications. The patient understood all the risks and was in agreement with the surgical plan. Hospital Course: The patient underwent an uneventful laparoscopic sleeve gastrectomy with gastropexy on the day of admission. Postoperatively, the patient was transferred to the surgical floor. The patient received IV Acetaminophen and IV Dilaudid for pain control. Patient was started on bariatric phase 1 diet POD #0. On postoperative day one, the patient was feeling well without nausea, vomiting, fevers, or tachycardia. The patient had some mild incisional pain and the abdomen was soft.? On the morning of postoperative day one, the patient was continued on 1 ounce of water or ice every half hour. During the day, the patient did fairly well, having some incisional pain, but able to ambulate adequately and to tolerate liquids well. Since the patient is doing well, we decided that the patient was ready to be discharged. The patient was given instructions to follow-up with me next week and to call my office for any fever over 101, persistent abdominal pain, nausea, vomiting, GERD, symptoms of DVT such as calf tenderness, or leg swelling, or pulmonary embolism such as chest pain or shortness of breath.? The patient was also instructed to drink 40-60 ounces of liquids per day using the 1-ounce cups. The patient had been given prescriptions for Tylenol for pain, Zofran prn for nausea, and pantoprazole and carafate previously. The patient was encouraged to ambulate and use the incentive spirometer. The patient was allowed to shower, but no baths, and encouraged to stay active at home. All of these instructions were given to the patient personally. All questions were answered and the patient understood all instructions, the instructions were also given to the patient in print. Time Spent with Patient Time attestation: Total time spent providing and/or coordinating discharge services: Discharge coordination time: Less than 30 minutes Quality: Safe Use of Opioids Does Pt have an Active Cancer Diagnosis on the Problem List?: No Quality: Stroke Does the patient have a stroke diagnosis?: No Physical Exam Vital Signs: Vital Signs: Last Vital Signs Temp 97.7 F 09/20/21 07:32 Pulse 66 09/20/21 07:32 Resp 18 09/20/21 07:32 BP 137/71 09/20/21 07:32 Pulse Ox 94 09/20/21 07:32 O2 Del Method 09/20/21 07:32 O2 Flow Rate 2.0 09/19/21 14:56 BMI result Body Mass Index 42.5 DS: Data Data Completed and Pending Completed studies during hospitalization [Text1]: Pending at discharge 09/19/21 10:04 Surgical [PTH] Routine Procedures Excision of Stomach, Percutaneous Endoscopic Approach, Vertical (09/19/21) Release Peritoneum, Percutaneous Endoscopic Approach (09/19/21) Discharge Plan Discharge Patient Disposition: Home, Self-Care Discharge Diagnosis: s/p sleeve gastrectomy and gastropexy Referrals: Name,MD aJvy [Primary Care Provider] - 1 Week Discharge Medications: Continued hydroxyzine HCl 25 mg tablet 0.5 - 1 tab PO BID PRN (Reason: anxiety) pantoprazole 40 mg tablet,delayed release (DR/EC) 40 mg PO DAILY Qty: 30 2RF sucralfate 100 mg/mL suspension 10 ml PO BID Qty: 400 2RF ondansetron HCl 4 mg tablet 4 mg PO Q12H Qty: 20 0RF fluticasone propionate 50 mcg/actuation spray,suspension 2 spray intranasal DAILY Discontinued multivitamin Tablet 1 tab PO DAILY norethindrone (contraceptive) 0.35 mg tablet 1 tab PO DAILY polyethylene glycol 3350 [Miralax] 17 gram powder in packet 17 g PO DAILY Qty: 14 0RF Rx Instructions: Mix each packet with 8oz of water and do 7 packets on 09/17/21 and another 7 packets on 09/18/21 Vitron-C 65 mg iron- 125 mg tablet,delayed release (DR/EC) 1 tab PO DAILY Qty: 30 2RF Rx Instructions: swallow whole; do not chew/break/dissolve/open cholecalciferol (vitamin D3) 125 mcg (5,000 unit) capsule 125 mcg PO DAILY Qty: 30 2RF Discharge Orders: Discharge Order (Routine); Ordered 09/20/21 Ordered By: Almas Olguin Activity on Discharge: No heavy lifting Stand Alone Forms: Patient Portal Discharge page Care Plan Goals: weight loss Health Concerns: morbid obesity Plan of Treatment: No tub baths, sex or returning to work until discussed at first post op appointment. No exercise, alcohol, tobacco or illegal drug use. Continue to use incentive spirometer hourly while awake. Walk in home for 5- 10 minutes every 2 hours during the first week. Follow all instructions in the bariatric handbook and call with any questions.Discharge Instructions 1. Please call your doctor or come back to the emergency room should any new symptoms arise. 2. You will receive a courtesy call from [facility] 24-48 hours after discharge. 3. Activity: abstain from alcohol, practice limited stair climbing, no bending, no driving, no exercise, no illicit substances, no lifting, no sex, no tub bath, no work. 4. Diet: continue as discussed with Dr. Olguin. 5. Dressing Change/Wound Care: Your incision is covered by clear bandages and guaze underneath. If the area is tender, you may apply an ice pack for short intervals (no more than 20 minutes on, followed by at least 20 minutes off). Do not apply heat. Do not use creams, lotions, or topical antibiotics unless instructed to do so by your surgeon. These can cause infection or allergic reaction. 6. Call your doctor if: - Your temperature exceeds 101.5 F - You experience excessive pain or swelling - You have an unexpected reaction to medication - You have excessive bleeding - You experience continued vomiting/nausea - Your incision begins to separate - Your incision shows signs of infection such as increased redness, swelling, excessive pain, heat, or drainage (light blood or clear fluid is normal) 7. General instructions: No lifting greater than 5 lbs for the next 4 weeks[address] driving within 24 hours of taking narcotic pain medications. If you do not move your bowels in the next 2 days, please take milk of magnesia over the counter. Please follow the post op diet and do not advance your diet until you are seen in the office in about 2 weeks. Please walk around your home every hour or two to prevent blood clots from forming in your legs. You do not need to wake from sleeping to walk. Please sleep in a bed or couch to prevent kinking at the hips and knees. Please take your incentive spirometer (your lung sales project administrator) home with you and use it for the next few days to prevent pneumonias. You may shower, no hot tubs, baths or swimming pools. Please call the office with any questions or concerns such as increasing abdominal pain, fever, chills, shortness of breath, chest pain, leg pain or swelling, or redness or drainage from your incisions. Please stay on stage 3 diet which includes sugar free clear liquids such as ice pops and jello and broth and crystal light. Avoid all carbonation. Please drink 3 protein shakes with at least 25-30 grams of protein daily or 3 of the Celebrate 4:1 shakes which can be purchased in our office. The Celebrate shakes have all of the bariatric vitamins you need if you consume these shakes. If you are drinking other protein shakes, you will need to purchase the Celebrate multivitamins and calcium that we provide in the office (they will provide all the vitamins you need). Please make sure you are consuming at least 40-60 ounces of water in addition to your 3 protein shakes daily. Do not hesitate to contact the office with any questions at . The patient's medical history has been reviewed and they are considered low risk for post op DVT and therefore DVT prophylaxis is not considered necessary. Travel after surgery was reviewed. The patient has not disclosed any travel plans during the first 30 days after surgery and they have been advised that within the first 30 days after surgery any bus, plane, train or car travel over 2 hours in duration is contraindicated due to the possibility of developing blood clots from immobility. Any travel, needs to include periods of ambulation of 10 minutes in duration every 2 hours.? The patient was instructed to discuss any plans for travel during this period with their bariatric surgeon. Assessment: s/p sleeve gastrectomy with gastropexy Discharge Date/Time: 09/20/21 10:13
== END 2021-09-20 10:13 | disposition home or self-care (01) | DRG 403 ==
LOC: HO.SSSA 11:25 → HO.S3 12:00
PROVIDERS: Nurse Practitioner; Physician Assistant Surgical; Admitting Provider Surgery; PCP Internal Medicine Geriatric Medicine; Visit Provider Surgery
PROC: 0DB64Z3 Excision of Stomach, Percutaneous Endoscopic Approach, Vertical (ICD-10-PCS; CPT 43845; principal; 2021-09-19 07:30)
DX: E66.01 Morbid (severe) obesity due to excess calories (principal); K76.0 Fatty (change of) liver, not elsewhere classified; E78.5 Hyperlipidemia, unspecified; F32.A Depression, unspecified; K66.0 Peritoneal adhesions (postprocedural) (postinfection); Z68.41 Body mass index [BMI] 40.0-44.9, adult; F41.1 Generalized anxiety disorder; Z20.822 Contact with and (suspected) exposure to COVID-19; Z87.891 Personal history of nicotine dependence; Z91.040 Latex allergy status; Z88.0 Allergy status to penicillin; Z79.51 Long term (current) use of inhaled steroids; Z79.899 Other long term (current) drug therapy
CPT/HCPCS: 36415; 80048; 80053; 80061; 81025; 83036; 83525; 84443; 85014; 85018; 85025; 85610; 85730; 86140; 86850; 86900; 86901; 87635; 88307; 88342; A4649; C9088; J0131; J1100; J1170; J1956; J2250; J2405; J2550; J2765; J2795; J3010

== ENCOUNTER 2021-10-02 14:18 | Emergency (ER) | payer MEDICAID, SELFPAY ==
--- NOTE | 2021-10-02 14:41 | PC.NURSE ---
mayra called and gave me report on this pt, I told them that I would eval the pt and put in orders, it appears that mayra ordered outpatient us orders and the pt went to us before I could triage
[2021-10-02 16:37] VITALS: BP 92/63; PULSE 77; RESP 18; TEMP 37; O2SAT 100; BMI 39.3
--- NOTE | 2021-10-02 19:48 | ECG_ITS ---
Test Reason : SHORTNESS OF BREATH Blood Pressure : / mmHG Vent. Rate : 082 BPM Atrial Rate : 082 BPM P-R Int : 160 ms QRS Dur : 088 ms QT Int : 380 ms P-R-T Axes : 043 019 -10 degrees QTc Int : 443 ms Normal sinus rhythm Minimal voltage criteria for LVH, may be normal variant ( R in aVL ) Nonspecific T wave abnormality Abnormal ECG When compared with ECG of 05-FEB-2021 10:32, T wave inversion now evident in Inferior leads Nonspecific T wave abnormality now evident in Anterolateral leads Referred By: Generic ED Physician Electronically Signed By:АЛЕКСАНДР HELM MD
[2021-10-02] MEDS: Acetaminophen 325 MG TABLET 650 MG PO (21:17)
[2021-10-02 21:18] LABS: MANUAL DIFF FLAG NO
[2021-10-02 21:21] LABS: Basophils Absolute Auto 0.1 X10*3/uL (0.0-0.2); Basophils Percent Auto 0.6 % (0-2); Eosinophils Absolute Auto 0.2 X10*3/uL (0.0-0.4); Eosinophils Percent Auto 2.4 % (0-4); Hemoglobin 12.3 g/dl (12.0-16.0); Imm Gran Abs Auto 0.02 X10*3/uL (0.00-0.03); Imm Gran Pct Auto 0.2 % (0.0-0.4); Lymphocytes Absolute Auto 2.6 X10*3/uL (1.2-4.9); Lymphocytes Percent Auto 31.3 % (20-40); Mean Corpuscular HGB Conc 32.4 g/dl (31.0-35.0); Mean Corpuscular Hemoglobin 26.9 pg (27.0-33.0); Mean Corpuscular Volume 83.2 fL (80.0-98.0); Mean Platelet Volume 12.3 fL (9.4-12.3); Monocytes Absolute Auto 0.7 X10*3/uL (0.1-1.2); Monocytes Percent Auto 8.1 % (2-11); Neutrophils Absolute Auto 4.8 x10*3/uL (2.0-8.3); Neutrophils Percent Auto 57.4 % (45-73); Platelet Count 358 X10*3/uL (160-400); Red Blood Count 4.57 X10*6/uL (4.20-5.50); Red Cell Distribution Width 14.3 % (11.0-16.0); White Blood Count 8.3 X10*3/uL (4.8-10.8)
[2021-10-02 21:29] LABS: UPreg QC Valid YES; Urine Pregnancy NEGATIVE (NEGATIVE)
[2021-10-02 21:33] LABS: Appearance Urine CLEAR; Color Urine YELLOW; Glucose Urine UA NEG (NEG); Leukocyte Esterase Urine NEG (NEG); Nitrite Urine NEG (NEG); PH 6.5 (5.0-8.0); UACC Culture Trigger NO; Urine Blood NEG (NEG); Urine Ketones >=80 MG/DL (NEG); Urine Protein 1+ MG/DL (NEG-TRACE)
[2021-10-02 21:43] LABS: Troponin-I High Sensitivity < 3.5 ng/L (<3.5-17.0)
[2021-10-02 21:45] LABS: Alanine Aminotransferase 37 U/L (0-31); Albumin Level 4.7 g/dL (3.5-5.0); Alkaline Phosphatase 72 U/L (39-117); Anion Gap 17 (12-20); Aspartate Amino Transferase 30 U/L (5-31); Bilirubin Total 0.4 mg/dL (0.0-1.0); Blood Urea Nitrogen 8 mg/dL (9-16); Calcium 9.2 mg/dL (8.4-10.2); Carbon Dioxide 21 mmol/L (22-29); Chloride 106 mmol/L (96-108); Creatinine Clr Calc Pharmacy 133.5; Estimated Glomerular Filt Rate > 60; Glucose Random 80 mg/dL (60-115); Potassium 3.4 mmol/L (3.3-5.1); Sodium 141 mmol/L (135-145); Total Protein 8.3 g/dL (6.5-8.0)
[2021-10-02 21:48] LABS: Bacteria Urine 1+ /LPF; Squamous Epithelial Cell Urine 1+ /LPF
[2021-10-02 22:46] VITALS: BP 103/69; PULSE 77; RESP 16; O2SAT 96
--- NOTE | 2021-10-02 22:53 | ED_ITS ---
HPI - General Adult General Chief complaint: Dyspnea Stated complaint: Needs Cxr & Sonogram of Legs Per Bariatrics Time Seen by Provider: 10/02/21 14:24 Source: patient Mode of arrival: ambulatory Limitations: no limitations History of Present Illness HPI narrative: Patient status post gastric sleeve surgery 2 weeks ago nothing of weakness shortness of breath had outpatient venous Doppler CTA chest and chest x-ray which were negative patient lost about 40 lb since surgery no fever no chills no cough Related Data Previous Rx's Medication Instructions Recorded ondansetron HCl 4 mg tablet 4 mg PO Q12H nausea and vomiting 09/13/21 #20 tabs pantoprazole 40 mg tablet,delayed 40 mg PO DAILY #30 tabs 09/13/21 release sucralfate 100 mg/mL oral 10 ml PO BID #400 mL 09/13/21 suspension Allergies Allergy/AdvReac Type Severity Reaction Status Date / Time latex Allergy Severe Anaphylaxis Verified 10/02/21 16:37 red dye Allergy Severe Anaphylaxis Verified 10/02/21 16:37 amoxicillin Allergy Intermediate Blisters, Verified 10/02/21 16:37 hives Review of Systems Review of Systems: Yes all other systems are reviewed and are negative [facility] Past Medical History Medical History Anemia Anxiety Back pain delivery delivered Congenital intra-abdominal adhesions Herpes simplex virus (HSV) infection HIV exposure Knee pain Migraine with aura Morbid obesity Surgical History H/O breast biopsy Hx of section Status post sleeve gastrectomy Family History Family History Father Mental health disorder Mother Acute arthritis Carpal tunnel syndrome Sister Cervical cancer Sister No problems noted. Brother No problems noted. Son No problems noted. Social History Social History Are you a primary health care sanitary technician to a significant other at home: Yes (son age 5, mother will help after surgery) Do you presently have visiting nurse or other home services: No Alcohol intake: never Patient Tobacco Use Status: Former Tobacco user Quit Date: 2015 Tobacco use type: Cigarette Advance Directives: No Advance Directives Information Provided: Yes service: No Current occupational status: disabled Sexual orientation: Straight/Heterosexual Gender identity: Female Physical Exam ED Vital Signs: Vital Signs - 24 hr 10/02/21 16:37 10/02/21 22:46 Temperature 98.6 F Pulse Rate 77 77 Respiratory Rate 18 16 Blood Pressure 92/63 103/69 Pulse Oximetry 100 96 Oxygen Delivery Method Room Air Room Air BMI result Body Mass Index 39.3 Appearance: Alert. Oriented X3. No acute distress. Eyes: No pallor/ icterus ENT: Pharynx normal. Oral Mucosa moist Neck: Normal inspection. Neck supple. CVS: Normal heart rate and rhythm. Pulses normal. Respiratory: No respiratory distress. Equal air entry bilateral, no wheezing/rales/rhonchi Abdomen: Soft and nontender. Bowel sounds are present, no mass palpable, no CVA tenderness Skin: Skin warm and dry. Normal skin color. Normal skin turgor. Extremities: No lower extremity edema. No calf tenderness Neuro: Oriented X 3. No motor deficit. Medical Decision Making MDM Narrative Medical decision making narrative: Patient is status post bariatric surgery gastric sleeve with weakness workup negative likely be secondary to poor oral intake Lab Data Lab results reviewed: Yes I reviewed the patient's lab results. Result diagrams: 10/02/21 21:14 10/02/21 21:14 Labs: Lab Results 10/02/21 10/02/21 10/02/21 Range/Units 21:11 21:11 21:14 WBC 8.3 (4.8-10.8) X10*3/uL RBC 4.57 (4.20-5.50) X10*6/uL Hgb 12.3 (12.0-16.0) g/dl Hct 38.0 (37.0-47.0) % MCV 83.2 (80.0-98.0) fL MCH 26.9 L (27.0-33.0) pg MCHC 32.4 (31.0-35.0) g/dl RDW 14.3 (11.0-16.0) % Plt Count 358 (160-400) X10*3/uL MPV 12.3 (9.4-12.3) fL Immature Gran % (Auto) 0.2 (0.0-0.4) % Neut % (Auto) 57.4 (45-73) % Lymph % (Auto) 31.3 (20-40) % Ida % (Auto) 8.1 (2-11) % Eos % (Auto) 2.4 (0-4) % Baso % (Auto) 0.6 (0-2) % Lymph # (Auto) 2.6 (1.2-4.9) X10*3/uL Ida # (Auto) 0.7 (0.1-1.2) X10*3/uL Eos # (Auto) 0.2 (0.0-0.4) X10*3/uL Baso # (Auto) 0.1 (0.0-0.2) X10*3/uL Abs Immat Gran (auto) 0.02 (0.00-0.03) X10*3/uL Absolute Neuts (auto) 4.8 (2.0-8.3) x10*3/uL Absolute Nucleated RBC 0.000 (0.0-0.012) X10*3/uL Nucleated RBC % (auto) 0.0 (0.0-0.2) /100WBC Sodium (135-145) mmol/L Potassium (3.3-5.1) mmol/L Chloride (96-108) mmol/L Carbon Dioxide (22-29) mmol/L Anion Gap (12-20) BUN (9-16) mg/dL Creatinine (0.5-1.4) mg/dL Estim Creat Clear Calc Estimated GFR Random Glucose (60-115) mg/dL Calcium (8.4-10.2) mg/dL Magnesium (1.6-2.6) mg/dL Total Bilirubin (0.0-1.0) mg/dL AST (5-31) U/L ALT (0-31) U/L Alkaline Phosphatase (39-117) U/L Troponin I High Sens (<3.5-17.0) ng/L Total Protein (6.5-8.0) g/dL Albumin (3.5-5.0) g/dL Urine Color YELLOW Urine Appearance CLEAR Urine pH 6.5 (5.0-8.0) Ur Specific Caldwell 1.020 (1.005-1.025) Urine Protein 1+ H (NEG-TRACE) MG/DL Urine Glucose (UA) NEG (NEG) MG/DL Urine Ketones >=80 (NEG) MG/DL Urine Blood NEG (NEG) Urine Nitrite NEG (NEG) Ur Leukocyte Esterase NEG (NEG) Urine RBC 1-4 (0) /HPF Urine WBC 1-4 (0-4) /HPF Ur Squamous Epith Cells 1+ /LPF Urine Bacteria 1+ /LPF Urine Test NEGATIVE (NEGATIVE) 10/02/21 10/02/21 Range/Units 21:14 21:14 WBC (4.8-10.8) X10*3/uL RBC (4.20-5.50) X10*6/uL Hgb (12.0-16.0) g/dl Hct (37.0-47.0) % MCV (80.0-98.0) fL MCH (27.0-33.0) pg MCHC (31.0-35.0) g/dl RDW (11.0-16.0) % Plt Count (160-400) X10*3/uL MPV (9.4-12.3) fL Immature Gran % (Auto) (0.0-0.4) % Neut % (Auto) (45-73) % Lymph % (Auto) (20-40) % Ida % (Auto) (2-11) % Eos % (Auto) (0-4) % Baso % (Auto) (0-2) % Lymph # (Auto) (1.2-4.9) X10*3/uL Ida # (Auto) (0.1-1.2) X10*3/uL Eos # (Auto) (0.0-0.4) X10*3/uL Baso # (Auto) (0.0-0.2) X10*3/uL Abs Immat Gran (auto) (0.00-0.03) X10*3/uL Absolute Neuts (auto) (2.0-8.3) x10*3/uL Absolute Nucleated RBC (0.0-0.012) X10*3/uL Nucleated RBC % (auto) (0.0-0.2) /100WBC Sodium 141 (135-145) mmol/L Potassium 3.4 D (3.3-5.1) mmol/L Chloride 106 (96-108) mmol/L Carbon Dioxide 21 L (22-29) mmol/L Anion Gap 17 (12-20) BUN 8 L (9-16) mg/dL Creatinine 0.71 (0.5-1.4) mg/dL Estim Creat Clear Calc 133.5 Estimated GFR > 60 Random Glucose 80 (60-115) mg/dL Calcium 9.2 D (8.4-10.2) mg/dL Magnesium 1.8 (1.6-2.6) mg/dL Total Bilirubin 0.4 (0.0-1.0) mg/dL AST 30 D (5-31) U/L ALT 37 H (0-31) U/L Alkaline Phosphatase 72 (39-117) U/L Troponin I High Sens < 3.5 (<3.5-17.0) ng/L Total Protein 8.3 H (6.5-8.0) g/dL Albumin 4.7 (3.5-5.0) g/dL Urine Color Urine Appearance Urine pH (5.0-8.0) Ur Specific Caldwell (1.005-1.025) Urine Protein (NEG-TRACE) MG/DL Urine Glucose (UA) (NEG) MG/DL Urine Ketones (NEG) MG/DL Urine Blood (NEG) Urine Nitrite (NEG) Ur Leukocyte Esterase (NEG) Urine RBC (0) /HPF Urine WBC (0-4) /HPF Ur Squamous Epith Cells /LPF Urine Bacteria /LPF Urine Test (NEGATIVE) Discharge Plan Discharge Clinical Impression: Weakness Patient Disposition: Home, Self-Care Instructions: Weakness (ED) Additional Instructions: Drink plenty of fluids Follow-up with PCP as needed Prescriptions: No Action pantoprazole 40 mg tablet,delayed release (DR/EC) 40 mg PO DAILY Qty: 30 2RF sucralfate 100 mg/mL suspension 10 ml PO BID Qty: 400 2RF ondansetron HCl 4 mg tablet 4 mg PO Q12H Qty: 20 0RF Interventions: ED Discharge Assessment Last Done: 10/03/21 00:50 Discharge Date/Time: 10/03/21 00:50
[2021-10-02 22:58] LABS: Magnesium 1.8 mg/dL (1.6-2.6)
[2021-10-02] MEDS: 0.9 % Sodium Chloride 1,000 ML 999 ML IV (22:58)
--- NOTE | 2021-10-03 00:18 | PC.NURSE ---
pt refusing covid swab, aware
== END 2021-10-03 00:50 | disposition home or self-care (01) ==
PROVIDERS: Emergency Provider Internal Medicine; PCP Internal Medicine Geriatric Medicine
DX: R06.00 Dyspnea, unspecified (principal); R06.02 Shortness of breath; R53.1 Weakness; Z79.899 Other long term (current) drug therapy; Z87.891 Personal history of nicotine dependence
CPT/HCPCS: 36415; 71275; 80053; 81001; 81025; 83735; 84484; 85025; 93005; 96360; 99284; 99285

== ENCOUNTER 2021-10-02 14:48 | Outpatient (REF) | payer MEDICAID, SELFPAY ==
--- NOTE | ~2021-10-02 | CT_ITS ---
EXAMINATION: CT ANGIOGRAM OF THE CHEST WITH AND WITHOUT CONTRAST (CT PULMONARY ANGIOGRAM FOR PE) CLINICAL INFORMATION: Reason for Exam R07.9 - Chest pain, unspecified COMPARISON: CTA chest 03/26/2019. Intervening chest radiograph 02/05/2021. TECHNIQUE: Prior to contrast administration, noncontrast localization images were obtained. Subsequently, multidetector volumetric imaging was performed from the thoracic inlet to below the diaphragms following the administration of 65 mL Omnipaque 350 intravenous contrast. No contrast reaction reported Sagittal, coronal, and MIP oblique sagittal reformatted images were obtained on the CT workstation, uploaded to PACS, and reviewed. Artifacts due to clothing and patient habitus. This CT examination was performed using dose optimization techniques as appropriate, variously including the following: *Automated exposure control *Adjustment of mA and/or kV according to patient size (this includes techniques or standardized protocols for targeted exams where dose is matched to indication/reason for exam; i.e. extremities or head) *Use of iterative reconstruction technique Total exam dose-length product 155 mGy-cm FINDINGS: QUALITY OF STUDY/CONTRAST BOLUS: Satisfactory. PULMONARY ARTERIES: No large central or segmental pulmonary artery emboli. The main pulmonary artery segment is mildly prominent. Recommend follow-up with echocardiography to assess for pulmonary hypertension. Given patient habitus this could be the result of apnea. Clinical correlation suggested in this regard. No webs or stenoses to suggest chronic pulmonary emboli. THORACIC AORTA: The unenhanced aorta is grossly normal in appearance. There is motion artifact. LUNG: No endobronchial lesion. No lobar consolidation, effusion or pneumothorax. PLEURA: No pleural effusion or pneumothorax. MEDIASTINUM: Normal heart size. No pericardial effusion. No hilar or mediastinal lymphadenopathy. 1-1 ventricular ratio with straightening of the right heart border raises the possibility of increased right heart pressures. Again, echocardiography suggested. CHEST WALL/AXILLA: No mass or lymphadenopathy. Axillary nodes are within normal limits in size. OSSEOUS STRUCTURES: No rib fracture. No acute osseous abnormality. UPPER ABDOMEN: Status post casting sleeves. No acute intestinal abnormality noted. No reflux of contrast into the hepatic veins to suggest elevated right heart pressures. CT/CT angio chest PE protocol IMPRESSION: 1. No acute pulmonary embolism identified. 2. Borderline enlarged main pulmonary artery and right ventricle raises possibility of increased right heart pressures. Suggest echocardiography. VTE: negative Fleischner criteria utilized.
--- NOTE | ~2021-10-02 | US_ITS ---
EXAMINATION: US VENOUS ULTRASOUND WITH DOPPLER LOWER EXTREMITY, BILATERAL CLINICAL INFORMATION: Chest pain. Patient is 2 weeks postop COMPARISON: None TECHNIQUE: Ultrasound of the deep veins is performed from the hip to the calf with compression sonography and color and pulse Doppler assessment. Spectral analysis with color-flow imaging is performed. FINDINGS: RIGHT: There is normal venous compression and respiratory variation and augmented flow. The visualized common femoral vein, superficial femoral vein, profunda femoral vein, popliteal vein, and the trifurcation region shows no evidence of deep venous thrombosis. There is no significant popliteal fossa cyst. LEFT: There is normal venous compression and respiratory variation and augmented flow. The visualized common femoral vein, superficial femoral vein, profunda femoral vein, popliteal vein, and the trifurcation region shows no evidence of deep venous thrombosis. There is no significant popliteal fossa cyst. US/US venous duplex LE BI IMPRESSION: No DVT demonstrated in the bilateral lower extremity.
[2021-10-02] MEDS: iohexoL 350 MG/ML 100 ML INFUS..BTL IV (16:36)
== END 2021-10-02 14:49 | disposition home or self-care (01) ==
LOC: HO.US 14:48
PROVIDERS: PCP Internal Medicine Geriatric Medicine; Visit Provider Physician Assistant
DX: R07.9 Chest pain, unspecified (principal); R06.02 Shortness of breath; Z90.3 Acquired absence of stomach [part of]; Z98.84 Bariatric surgery status
CPT/HCPCS: 71275; 93970; Q9967

== ENCOUNTER → 2021-10-03 14:30 | Outpatient (REF) | payer MEDICAID, SELFPAY ==
--- NOTE | 2021-10-03 14:43 | CA_ITS ---
Transthoracic Echocardiogram Patient (Last, First, Middle): Juana Lay Y Gender: Female Date of : 1990 Age: 30 Procedure Date: 10/03/2021 Procedure Type: Transthoracic Echocardiogram Location: OP Height: 162.56 cm Weight: 103.87 kg BSA: 2.07 m2 Heart Rate: bpm BP: 130 / 75 mmHg Half Backer: TO/VH Referring MD: Romelia Montenegro Lead Process Engineer: Jose Angel Arrington MD Symptoms: R07.9 UNSPEC CHEST PAIN Study Quality: Fair ECG Rhythm: Sinus Conclusions: - Essentially normal study Findings Left Ventricle Normal left ventricular size, thickness, and systolic function. The visually estimated ejection fraction is between 55-60%. Spectral Doppler is indicative of a normal filling pattern. Right Ventricle Normal right ventricular cavity size and systolic function. Atria Both atria are normal in size. There is no evidence of interatrial shunt. Aortic Valve Normal aortic valve structure and function. There is no aortic valve stenosis. There is no aortic valve regurgitation. Mitral Valve Normal mitral valve structure and function. There is trace mitral valve regurgitation. There is no mitral valve stenosis. Pulmonic Valve The pulmonic valve is likely normal. There is trace pulmonic valve regurgitation. Tricuspid Valve Normal tricuspid valve structure. There is no tricuspid valve regurgitation. Tricuspid regurgitation envelope is inadequate for calculation of right ventricular systolic pressure. Great Vessels All visible segments of the aorta are normal in size. The pulmonary artery was not well visualized. Venous The inferior vena cava is normal in size and collapses greater than 50% with inspiration. Pericardium/Pleural There is no evidence of pericardial effusion. Prior Study Comparison No prior study available for comparison. Measurements 2D Linear Measurements IVSd: 0.95 0.6-0.9/0.6-1.0 cm LVIDd: 4.29 3.9-5.3/4.2-5.9 cm LVIDd Index: 2.07 2.4-3.2/2.2-3.1 cm/m2 LVIDs: 3.10 2.0-3.6 cm LVPWd: 0.98 0.7-1.1 cm LA Diam: 3.80 2.7-3.8/3.0-4.0 cm LAIDs Index: 1.84 1.5-2.3 cm/m2 LV Mass: 168.76 67-162/88-224 g LV Mass Index: 81.53 43-95/49-115 g/m2 LVOT Diam: 2.00 3.0+(-)1.3 cm 2D Systolic Function EF 4C: 54.50 >55% EF 2C: 63.50 >55% EF BiP: 59.40 >55% Mitral Valve MV Pk E: 0.67 MV PK A: 0.50 MV Decel Time: 234.00 E/A: 1.40 E'Lateral: 13.70 E'Medial: 7.94 E/E' Med: 8.50 E/E' Lat: 4.90 PHT: 69.00 MVA PHT: 3.19 Decel [place]: 2.88 Aortic Valve AoV Pk Salo: 1.46 AoV Mn Salo: 0.98 AoV VTI: 0.27 AoV Pk Grad: 9.00 Aov Mn Grad: 4.00 SKYLA Cont.VTI: 2.72 LVOT LVOT Pk Salo: 1.17 LVOT Mn Salo: 0.74 LVOT VTI: 0.23 LVOT Pk Grad: 5.00 LVOT Mn Grad: 3.00 LVOT Diam: 2.00 LVOT Area: 3.14 Diastolic Function MV Pk E: 0.67 MV Pk A: 0.50 E/A: 1.40 E'Medial: 7.94 E/E' Med: 8.50 E' Laterial: 13.70 E/E' Lat: 4.90 Right Ventricle TAPSE (mm): 21.30 TVS' Salo: 11.10 Great Vessels Aorta Sinus of Valsalva: 3.24 2.0-3.[address] [place]: 2.40 1.7-3.4 cm Ao Asc: 3.00 2.1-3.4 cm Updated in Other Vendor System with Status of Final Jose Angel Arrington MD electronically signed on 10/04/2021 9:04:04 AM with status of Final
== END ==
LOC: HO.CARD 14:30
PROVIDERS: PCP Internal Medicine Geriatric Medicine; Visit Provider Nurse Practitioner Family
DX: R07.9 Chest pain, unspecified (principal)
CPT/HCPCS: 93306

== ENCOUNTER → 2021-10-04 09:42 | Outpatient (BNVA) | payer MEDICAID, SELFPAY | PROVIDERS: PCP Internal Medicine Geriatric Medicine; Referring Provider Physician Assistant; Visit Provider Dietitian, Registered | DX: E66.9 Obesity, unspecified (principal) | CPT/HCPCS: 97803 ==

== ENCOUNTER → 2021-10-11 12:51 | Outpatient (BNVA) | payer MEDICAID, SELFPAY | PROVIDERS: PCP Internal Medicine Geriatric Medicine; Referring Provider Physician Assistant Surgical; Visit Provider Dietitian, Registered | DX: E66.9 Obesity, unspecified (principal); Z68.38 Body mass index [BMI] 38.0-38.9, adult; Z98.84 Bariatric surgery status; Z71.3 Dietary counseling and surveillance | CPT/HCPCS: 97803 ==

== ENCOUNTER → 2021-10-19 13:34 | Outpatient (BNVA) | payer MEDICAID, SELFPAY | PROVIDERS: PCP Internal Medicine Geriatric Medicine; Referring Provider Physician Assistant Surgical; Visit Provider Dietitian, Registered | DX: E66.9 Obesity, unspecified (principal); Z68.39 Body mass index [BMI] 39.0-39.9, adult | CPT/HCPCS: 97803 ==

== ENCOUNTER → 2021-11-02 14:36 | Outpatient (BNVA) | payer MEDICAID, SELFPAY | PROVIDERS: PCP Internal Medicine Geriatric Medicine; Referring Provider Surgery; Visit Provider Dietitian, Registered | DX: E66.9 Obesity, unspecified (principal) | CPT/HCPCS: 97803 ==

== ENCOUNTER → 2021-12-07 10:46 | Outpatient (BNVA) | payer MEDICAID, SELFPAY | PROVIDERS: PCP Internal Medicine Geriatric Medicine; Visit Provider Dietitian, Registered | DX: E66.9 Obesity, unspecified (principal) | CPT/HCPCS: 97803 ==

== ENCOUNTER → 2021-12-14 13:11 | Outpatient (BNVA) | payer MEDICAID, SELFPAY | PROVIDERS: PCP Internal Medicine Geriatric Medicine; Visit Provider Physician Assistant Surgical | DX: E66.9 Obesity, unspecified (principal); Z90.3 Acquired absence of stomach [part of]; Z68.36 Body mass index [BMI] 36.0-36.9, adult | CPT/HCPCS: 99212 ==

== ENCOUNTER → 2022-01-09 09:41 | Outpatient (BNVA) | payer MEDICAID, SELFPAY | PROVIDERS: PCP Internal Medicine Geriatric Medicine; Visit Provider Dietitian, Registered | DX: E66.9 Obesity, unspecified (principal); Z71.3 Dietary counseling and surveillance | CPT/HCPCS: 97803 ==

== ENCOUNTER 2022-03-25 12:18 | Emergency (ER) | payer MEDICAID, SELFPAY ==
[2022-03-25 13:23] VITALS: BP 107/45; PULSE 64; RESP 14; TEMP 36.6; O2SAT 100; BMI 34.0
--- NOTE | 2022-03-25 13:23 | ED_ITS ---
HPI - General Adult General Chief complaint: Dizziness Stated complaint: dizzy pelvic and back pain Source: patient Mode of arrival: ambulatory Limitations: no limitations History of Present Illness HPI narrative: 31yoF presenting to the ED c dizziness x 1 week and lower back pain with associated nausea.? Reports the dizziness is unchanged with sitting or standing and persistent.? Denies any fevers, change in vision, chest pain or shortness of breath, nasal congestion, falls, abdominal pain, urinary symptoms or any other symptoms complaints or concerns at this time. MD complaint: dizziness, lower back pain, and nausea Onset (ago): week(s) (1) Related Data Previous Rx's Medication Instructions Recorded calcium citrate 315 mg-vitamin D3 1 tab PO DAILY #60 tabs 12/14/21 5 mcg (200 unit) tablet Allergies Allergy/AdvReac Type Severity Reaction Status Date / Time latex Allergy Severe Anaphylaxis Verified 12/14/21 13:21 red dye Allergy Severe Anaphylaxis Verified 12/14/21 13:21 amoxicillin Allergy Intermediate Blisters, Verified 12/14/21 13:21 hives Review of Systems Review of Systems: Constitutional : No Fever, No Chills, No Night Sweats, No Fatigue, No Malaise ENT/Mouth : No Ear Pain, No Nasal Congestion, No Sinus Pain, No sore throat, No Rhinorrhea Eyes: No Eye Pain, No Swelling, No Redness, No Foreign Body, No Discharge, No Vision Changes Cardiovascular : No Chest Pain, No SOB, No Dyspnea on Exertion, No Orthopnea, No Palpitations Respiratory : No Cough, No Sputum, No Wheezing, No Dyspnea Gastrointestinal : + Nausea, No Vomiting, No Diarrhea, No Constipation, No abdominal Pain, No Hematochezia, No Melena Genitourinary : No Dysuria, No Urinary Frequency, No Urinary Incontinence, No Urgency, No Flank Pain Musculoskeletal : + lower back joint pain, No Myalgias Skin : No lacerations Neuro : No Focal weakness, no general weakness, No Numbness, No Paresthesias, No Loss of Consciousness, + Dizziness, No Headache Yes all other systems are reviewed and are negative PMFSH Past Medical History Attestation statement: The following information was validated with the patient. Source: old records reviewed and nursing notes reviewed Medical History Anemia Anxiety Back pain delivery delivered Congenital intra-abdominal adhesions Herpes simplex virus (HSV) infection HIV exposure Knee pain Migraine with aura Morbid obesity Surgical History H/O breast biopsy Hx of section Status post sleeve gastrectomy Family History Family History Father Mental health disorder Mother Acute arthritis Carpal tunnel syndrome Sister Cervical cancer Sister No problems noted. Brother No problems noted. Son No problems noted. Social History Social History Are you a primary career development director to a significant other at home: Yes (son age 5, mother will help after surgery) Do you presently have visiting nurse or other home services: No Alcohol intake: never Patient Tobacco Use Status: Former Tobacco user Quit Date: 2015 Tobacco use type: Cigarette Advance Directives: No Advance Directives Information Provided: No service: No Current occupational status: disabled Sexual orientation: Straight/Heterosexual Gender identity: Female Physical Exam ED Vital Signs: BMI result Body Mass Index 34.0 vital signs have been reviewed as normal and appeared to be correct. Blood pressure normal. Heart rate normal. Respiration rate normal. Temperature normal. Oxygen saturation normal. Appearance: Alert. Oriented X3. No acute distress. Head: Normal external exam. Normocephalic. Atraumatic. Eyes: PERRLA. EOMI. Conjunctiva and sclera normal. Eyelids normal. ENT: EAC normal. TM's Normal. Pharynx normal. Uvula midline. Moist mucous membranes. No lesions/ulcerations or masses noted on the tongue. Normal voice. No trismus noted. No drooling noted. No muffled voice noted. Neck: Normal inspection. Neck supple. FROM. No adenopathy. Thyroid Normal. No tracheal deviation noted. No crepitus is noted. No meningeal signs. No neck mass noted. No signs of trauma noted. CVS: Normal heart rate and rhythm. Heart sound normal. Pulses normal throughout. No murmurs/rales/gallops. Respiratory: No respiratory distress. Painless inspiration. Breath sounds normal. No wheezes/rales/rhonchi noted. Chest nontender. No crepitus is noted. No signs of trauma noted. No accessory muscle usage noted or decreased air movement noted. No signs of trauma. Abdomen: Soft and nontender. Bowel sounds normal in all 4 quadrants. No distention noted. No organomegaly noted. No visible injury noted. Back: No CVA tenderness. Full range of motion noted. Nontender. No signs of trauma. Patient neuro intact bilaterally and distally on all 4 extremities. Patient's reflexes intact bilaterally and distally on all 4 extremities. No rashes/lesion/induration/fluctuance or signs of infection noted. Skin: Skin warm and dry. Normal skin color. Normal skin turgor. No rashes/lesions/lacerations noted. Extremities: No lower extremity edema. No calf tenderness is noted. Extremities exhibit normal range of motion and nontender. Neuro: Oriented X 3. No motor deficit. No sensory deficit. Reflexes normal. Normal steady gait. No focal neuro deficits noted. CN's II-XII intact bilaterally? Vascular: + radial pulses/+ 2 distal pedal pulses/+2 dorsalis pedis b/l. Normal cap refill. No cyanosis noted to upper extremity nails and lower extremity toes nails. Course Course Course Narrative: RICARDO-13:25PM - 31yoF presenting to the ED c dizziness x 1 week and lower back pain with associated nausea. Reports the dizziness is unchanged with sitting or standing and persistent. Denies any fevers, change in vision, chest pain or shortness of breath, nasal congestion, falls, abdominal pain, urinary symptoms or any other symptoms complaints or concerns at this time. Plan: Will obtain labs, chest x-ray, EKG, orthostatic vitals, COVID/RSV/flu swab. Patient will be sent back to the waiting room to be evaluated in the ED. Reevaluation(s) Reevaluation #1: Glucose 120. Otherwise all other labs are within normal limits. Patient negative for COVID/RSV/flu. Pt eloped before told results. Medical Decision Making Lab Data MDM Lab Attestation statement: I reviewed the patient's lab results. 03/25/22 13:43 03/25/22 13:43 Labs: Lab Results 03/25/22 03/25/22 03/25/22 Range/Units 13:43 13:43 13:43 WBC 7.6 (4.8-10.8) X10*3/uL RBC 4.21 (4.20-5.50) X10*6/uL Hgb 11.8 L (12.0-16.0) g/dl Hct 37.1 (37.0-47.0) % MCV 88.1 (80.0-98.0) fL MCH 28.0 (27.0-33.0) pg MCHC 31.8 (31.0-35.0) g/dl RDW 13.7 (11.0-16.0) % Plt Count 280 (160-400) X10*3/uL MPV 12.3 (9.4-12.3) fL Immature Gran % (Auto) 0.3 (0.0-0.4) % Neut % (Auto) 64.8 (45-73) % Lymph % (Auto) 28.0 (20-40) % Mcdowell % (Auto) 5.2 (2-11) % Eos % (Auto) 1.0 (0-4) % Baso % (Auto) 0.7 (0-2) % Lymph # (Auto) 2.1 (1.2-4.9) X10*3/uL Mcdowell # (Auto) 0.4 (0.1-1.2) X10*3/uL Eos # (Auto) 0.1 (0.0-0.4) X10*3/uL Baso # (Auto) 0.1 (0.0-0.2) X10*3/uL Abs Immat Gran (auto) 0.02 (0.00-0.03) X10*3/uL Absolute Neuts (auto) 4.9 (2.0-8.3) x10*3/uL Absolute Nucleated RBC 0.000 (0.0-0.012) X10*3/uL Nucleated RBC % (auto) 0.0 (0.0-0.2) /100WBC PT 12.0 (10.0-13.1) SEC INR 1.0 (0.9-1.1) Sodium 142 (135-145) mmol/L Potassium 4.3 D (3.3-5.1) mmol/L Chloride 108 (96-108) mmol/L Carbon Dioxide 28 (22-29) mmol/L Anion Gap 10 L (12-20) BUN 10 (9-16) mg/dL Creatinine 0.67 (0.5-1.4) mg/dL Estim Creat Clear Calc 129.5 Estimated GFR > 60 Random Glucose 120 H (60-115) mg/dL Calcium 9.4 (8.4-10.2) mg/dL Magnesium 2.0 (1.6-2.6) mg/dL Total Bilirubin 0.3 (0.0-1.0) mg/dL AST 13 (5-31) U/L ALT 10 (0-31) U/L Alkaline Phosphatase 64 (39-117) U/L Total Protein 7.0 (6.5-8.0) g/dL Albumin 4.0 (3.5-5.0) g/dL Beta HCG, Quant < 2 mIU/mL Influenza Type A (PCR) (Negative) Influenza Type B (PCR) (Negative) RSV RNA Qual (PCR) (Negative) SARS-CoV-2 RNA (RT-PCR) (Negative) 03/25/22 Range/Units 13:43 WBC (4.8-10.8) X10*3/uL RBC (4.20-5.50) X10*6/uL Hgb (12.0-16.0) g/dl Hct (37.0-47.0) % MCV (80.0-98.0) fL MCH (27.0-33.0) pg MCHC (31.0-35.0) g/dl RDW (11.0-16.0) % Plt Count (160-400) X10*3/uL MPV (9.4-12.3) fL Immature Gran % (Auto) (0.0-0.4) % Neut % (Auto) (45-73) % Lymph % (Auto) (20-40) % Mcdowell % (Auto) (2-11) % Eos % (Auto) (0-4) % Baso % (Auto) (0-2) % Lymph # (Auto) (1.2-4.9) X10*3/uL Mcdowell # (Auto) (0.1-1.2) X10*3/uL Eos # (Auto) (0.0-0.4) X10*3/uL Baso # (Auto) (0.0-0.2) X10*3/uL Abs Immat Gran (auto) (0.00-0.03) X10*3/uL Absolute Neuts (auto) (2.0-8.3) x10*3/uL Absolute Nucleated RBC (0.0-0.012) X10*3/uL Nucleated RBC % (auto) (0.0-0.2) /100WBC PT (10.0-13.1) SEC INR (0.9-1.1) Sodium (135-145) mmol/L Potassium (3.3-5.1) mmol/L Chloride (96-108) mmol/L Carbon Dioxide (22-29) mmol/L Anion Gap (12-20) BUN (9-16) mg/dL Creatinine (0.5-1.4) mg/dL Estim Creat Clear Calc Estimated GFR Random Glucose (60-115) mg/dL Calcium (8.4-10.2) mg/dL Magnesium (1.6-2.6) mg/dL Total Bilirubin (0.0-1.0) mg/dL AST (5-31) U/L ALT (0-31) U/L Alkaline Phosphatase (39-117) U/L Total Protein (6.5-8.0) g/dL Albumin (3.5-5.0) g/dL Beta HCG, Quant mIU/mL Influenza Type A (PCR) NEGATIVE (Negative) Influenza Type B (PCR) NEGATIVE (Negative) RSV RNA Qual (PCR) NEGATIVE (Negative) SARS-CoV-2 RNA (RT-PCR) NEGATIVE (Negative) Discharge Plan Discharge Clinical Impression: Dizziness, Back pain Patient Disposition: Elopement Prescriptions: No Action calcium citrate-vitamin D3 315 mg-5 mcg (200 unit) tablet 1 tab PO DAILY Qty: 60 5RF Discharge Date/Time: 03/25/22 16:59
--- NOTE | 2022-03-25 13:25 | ECG_ITS ---
Test Reason : dizziness Blood Pressure : / mmHG Vent. Rate : 075 BPM Atrial Rate : 075 BPM P-R Int : 156 ms QRS Dur : 082 ms QT Int : 400 ms P-R-T Axes : 056 043 029 degrees QTc Int : 446 ms Normal sinus rhythm with sinus arrhythmia Nonspecific ST and T wave abnormality Borderline EKG When compared with ECG of 02-OCT-2021 20:54, No significant change was found Referred By: Kristie Tirado Electronically Signed By:QUINTON TUCKER
--- OUTSIDE RECORDS SUMMARY | 2022-03-25 13:45 | XMS_ITS | Continuity of Care Document ---
:1990 Author Organization [facility] Address [address] [place] [address], [address] [place] [id number]- Care Team Providers Name Role Phone Name Javy FELIX Primary Care Physician [place] [facility] [place] [facility] [address] [place] [address], [address] [place] [id number] Attending Physician: Selene Mendiola Admitting Physician: Selene Mendiola Referring Physician: Selene Mendiola Allergies, Adverse Reactions, Alerts Substance Reaction Severity Status medtronidazole containing compounds rash Persistent M oderate Active edema Immunizations Given and Recorded Vaccine Date Status Refusal Reason Diphth-Tetanus Toxoids Adsorbed(oldterm)1 02/26/06 Given 1Admin Note: 6-94 VIS MFG BY PENDING SALE TO [facility] Medications Gabapentin By Mouth, 0 Refills, Maintenance, 05/02/21 11:51:00 EST, Partial fill upon patient request if the prescription is for a schedule II opioid drug. Start Date: 05/02/21 Status: OrderedMultivitamin Daily, 0 Refills, Maintenance, 05/02/21 11:52:00 EST, Partial fill upon patient request if the prescription is for a schedule II opioid drug. Start Date: 05/02/21 Status: Orderednorethindrone 0.35 mg oral tablet 1 tablet = 0.35 mg, By Mouth, Daily, # 84 tablet, 3 Refills, Maintenance, 08/02/21 15:50:00 EDT, Tablet, [facility], Partial fill upon patient request if the prescription is for a schedule II opioid drug., 163, cm, 08/02/21 14:28:0... Start Date: 08/02/21 Status: Ordered Problem List Condition Confirmation Course Effective Dates Status Health I nformant Status HPV (human papilloma Confirmed Active virus) positive 2019. Last Pap 05/02/21 negative, HPV not done Migraines with aura Confirmed Active Sterilization Confirmed Active desired, [facility] and [facility] sterilization consent forms signed 08/02/21 Polycystic ovary Confirmed Active syndrome (PCOS) Secondary amenorrhea Confirmed Active Severe obesity Confirmed Active Social History Social History Type Response Smoking Status Former smoker, quit more keke n 30 days ago entered on: 05/03/21 Sex Patient Care team information PersonnelName: Name Javy FELIX Address: Address: [address] [place] [id number]
--- OUTSIDE RECORDS SUMMARY | 2022-03-25 13:45 | XMS_ITS | Continuity of Care Document ---
:1990 [facility] Address [address] [place] [address], [address] [place] [id number]- Care Team Providers Name Role Phone Name Javy FELIX Primary Care Physician Encounter [facility] [place] Date(s): 05/08/21 - 06/07/21 [facility]ent Powers [address], [address] [place] [id number] Allergies, Adverse Reactions, Alerts Substance Reaction Severity Status medtronidazole containing compounds rash Persistent M oderate Active edema Immunizations Given and Recorded Vaccine Date Status Refusal Reason Diphth-Tetanus Toxoids Adsorbed(oldterm)1 02/26/06 Given 1Admin Note: 6-94 VIS MFG BY [facility] Medications Gabapentin By Mouth, 0 Refills, Maintenance, 05/02/21 11:51:00 EST, Partial fill upon patient request if the prescription is for a schedule II opioid drug. Start Date: 05/02/21 Status: OrderedMultivitamin Daily, 0 Refills, Maintenance, 05/02/21 11:52:00 EST, Partial fill upon patient request if the prescription is for a schedule II opioid drug. Start Date: 05/02/21 Status: Ordered Problem List Condition Effective Dates Status Health Status Informant Obesity due to excess Active calories(Confirmed) Secondary amenorrhea(Confirmed) Active Severe obesity(Confirmed) Active Social History Social History Type Response Smoking Status Former smoker, quit more keke n 30 days ago entered on: 05/03/21 Sex
--- OUTSIDE RECORDS SUMMARY | 2022-03-25 13:45 | XMS_ITS | Continuity of Care Document ---
:1990 Author Organization [facility] Address [address] [place] [address], [address] [place] [id number]- Care Team Providers Name Role Phone Name Javy FELIX Primary Care Physician Encounter [facility] [place] Date(s): 10/10/21 - 11/09/21 [facility] [address] [facility], [address] [place] [id number] Allergies, Adverse Reactions, Alerts Substance Reaction Severity Status medtronidazole containing compounds rash Persistent M oderate Active edema Immunizations Given and Recorded Vaccine Date Status Refusal Reason Diphth-Tetanus Toxoids Adsorbed(oldterm)1 02/26/06 Given 1Admin Note: 6-94 VIS MFG BY [facility] Medications Gabapentin By Mouth, 0 Refills, Maintenance, [...] 3 Refills, Maintenance, 08/02/21 15:50:00 EDT, Tablet, [facility], Partial fill upon patient request if the prescription is for a schedule II opioid drug., 163, cm, 08/02/21 14:28:0... Start Date: 08/02/21 Status: Ordered Problem List Condition Effective Dates Status Health Status Informant HPV (human papilloma virus) positive Active 2019. Last Pap 05/02/21 negative, HPV not done(Confirmed) Migraines with aura(Confirmed) Active Sterilization desired, [facility] and Active [facility] sterilization consent forms signed 08/02/21(Confirmed) Polycystic ovary syndrome Active (PCOS)(Confirmed) Secondary amenorrhea(Confirmed) Active Severe obesity(Confirmed) Active Social History Social History Type Response Smoking Status Former smoker, quit more keke n 30 days ago entered on: 05/03/21 Sex
--- OUTSIDE RECORDS SUMMARY | 2022-03-25 13:45 | XMS_ITS | Continuity of Care Document ---
:1990 [facility] Address [address] [place] [address], [address] [place] [id number]- Care Team Providers Name Role Phone Name Javy FELIX Primary Care Physician [facility]counter [facility] [place] Date(s): 05/02/21 - 05/09/21 [facility] [employer] [address] [place] [address], [address] [place] [id number] Attending Physician: Pool Powers MD Referring Physician: Not on Staff, Referring MD Allergies, Adverse Reactions, Alerts Substance Reaction Severity Status medtronidazole containing compounds rash Persistent M oderate Active edema Immunizations Given and Recorded Vaccine Date Status Refusal Reason Diphth-Tetanus Toxoids Adsorbed(oldterm)1 02/26/06 Given 1Admin Note: 6-94 VIS MFG [facility] Medications Gabapentin By Mouth, 0 Refills, Maintenance, [...] calories(Confirmed) Secondary amenorrhea(Confirmed) Active Severe obesity(Confirmed) Active Vital Signs Most recent to oldest [Reference Range]: 1 Height 163.00 cm (05/02/21 11:06 AM) Weight 118.64 kg (05/02/21 11:06 AM) Body Mass Index [18.5-24.99] 44.65 *>HHI* (05/02/21 11:06 AM) Blood Pressure [90-138/55-84 mm Hg] 138/55 mm Hg (05/02/21 11:06 AM) Blood pressure sites Arm, right (05/02/21 11:06 AM) Weight Obtained Via Standing scale (05/02/21 11:06 AM) Social History Social History Type Response Smoking Status Former smoker, quit more keke n 30 days ago entered on: 05/03/21 Sex
--- OUTSIDE RECORDS SUMMARY | 2022-03-25 13:45 | XMS_ITS | Continuity of Care Document ---
:1990 [facility] Address [address] [place] [id number]- Care Team Providers Name Role Phone Name Javy FELIX [id number] - 06[facility]29/[facility] [employer] [facility] [address] [place] [id number] Attending Physician: Selene Mendiola Admitting Physician: Selene Mendiola Referring Physician: AdmtrSelene Allergies, Adverse Reactions, Alerts Substance Reaction Severity Status medtronidazole containing compounds rash Persistent M oderate Active edema Immunizations Given and Recorded Vaccine Date Status Refusal Reason Diphth-Tetanus Toxoids Adsorbed(oldterm)1 02/26/06 Given 1Admin Note: 6-94 VIS MFG BY [facility] Medications Gabapentin By Mouth, 0 Refills, [...]
--- OUTSIDE RECORDS SUMMARY | 2022-03-25 13:45 | XMS_ITS | Continuity of Care Document ---
:1990 Author Organization [facility] Address [address] [place] [id number]- Care Team Providers Name Role Phone Name Javy FELIX Primary Care Physician Encounter [facility] [place] Date(s): 05/09/21 - 06/24/[address] [id number] Attending Physician: Gina Suresh Admitting Physician: Gina Suresh Referring Physician: Gina Suresh Allergies, Adverse Reactions, Alerts Substance Reaction Severity Status medtronidazole containing compounds rash Persistent M oderate Active edema Immunizations Given and Recorded Vaccine Date Status Refusal Reason Diphth-Tetanus Toxoids Adsorbed(oldterm)1 02/26/06 Given 1Admin Note: 6-94 VIS MFG BY [facility] Medications Gabapentin By Mouth, 0 Refills, [...]
--- OUTSIDE RECORDS SUMMARY | 2022-03-25 13:45 | XMS_ITS | Continuity of Care Document ---
:1990 Author Organization [facility] [employer] [facility] Address [address] [place] [address], [address] [place] [id number]- Care Team Providers Name Role Phone Name Javy FELIX Primary Care Physician Encounter [facility] [place] Date(s): 08/31/21 - 12/29/21 [facility] [address] [place] [address], [address] [place] [id number] Attending Physician: Walter Valencia MD Referring Physician: Name Javy FELIX Allergies, Adverse Reactions, Alerts Substance Reaction Severity Status medtronidazole containing compounds rash Persistent M oderate Active edema Immunizations Given and Recorded Vaccine Date Status Refusal Reason Diphth-Tetanus Toxoids Adsorbed(oldterm)1 02/26/06 Given 1Admin Note: 6 VIS MFG BY [facility] Medications Gabapentin By Mouth, 0 [...] 3 Refills, Maintenance, 08/02/21 15:50:00 EDT, Tablet, [facility], Partial fill upon patient request if the prescription is for a schedule II opioid drug., 163, cm, 08/02/21 14:28:0... Start Date: 08/02/21 Status: Ordered Problem List Condition Confirmation Course Effective Dates Status Health I nformant Status HPV (human papilloma Confirmed Active virus) positive 2019. Last Pap 05/02/21 negative, HPV not done Migraines with aura Confirmed Active Sterilization Confirmed Active desired, [facility] sterilization consent forms signed 08/02/21 Polycystic ovary Confirmed Active syndrome (PCOS) Secondary amenorrhea Confirmed Active Severe obesity Confirmed Active Social History Social History Type Response Smoking Status Former smoker, quit more keke n 30 days ago entered on: 05/03/21 Sex Patient Care team information PersonnelName: Javy Pena MD Address: Address: [address] [place] [id number]
--- OUTSIDE RECORDS SUMMARY | 2022-03-25 13:46 | XMS_ITS | Continuity of Care Document ---
:1990 Author Organization [facility] Address [address] [place] [address], [address] [place] [id number]- Care Team Providers Name Role Phone Name Javy FELIX Primary Care Physician Encounter [facility] [place] Date(s): 10/26/21 - 11/25/21 [facility] [address] [facility], [address] [place] [id number] Allergies, Adverse Reactions, Alerts Substance Reaction Severity [...] 3 Refills, Maintenance, 08/02/21 15:50:00 EDT, Tablet, [facility], Partial fill upon patient request if the prescription is for a schedule II opioid drug., 163, cm, 08/02/21 14:28:0... Start Date: 08/02/21 Status: Ordered Problem List Condition Effective Dates Status Health Status Informant HPV (human papilloma virus) positive Active 2019. Last Pap 05/02/21 negative, HPV not done(Confirmed) Migraines with aura(Confirmed) Active Sterilization desired, [facility] and Active [facility] sterilization consent forms signed 08/02/21(Confirmed) Polycystic ovary syndrome Active (PCOS)(Confirmed) Secondary amenorrhea(Confirmed) Active Severe obesity(Confirmed) Active Social History Social History Type Response Smoking Status Former smoker, quit more keke n 30 days ago entered on: 05/03/21 Sex Care Team PersonnelName: Javy Pena MD Address: [address] [place] [address]
--- OUTSIDE RECORDS SUMMARY | 2022-03-25 13:46 | XMS_ITS | Continuity of Care Document ---
:1990 Author Organization [facility] Address [address] [place] [address], [address] [place] [id number]- Care Team Providers Name Role Phone Name Javy FELIX [id number]): [facility] - [facility]29/21 [facility] [employer] [facility] [address] [place] [address], [address] [place] [id number] Attending Physician: Not on Staff, Attending MD Referring Physician: Gina Suresh Allergies, Adverse Reactions, Alerts Substance Reaction Severity Status medtronidazole containing compounds rash Persistent M oderate Active edema Immunizations Given and Recorded Vaccine Date Status Refusal Reason Diphth-Tetanus Toxoids Adsorbed(oldterm)1 02/26/06 Given 1Admin Note: 6-94 VIS MFG BY [facility] Medications Gabapentin By Mouth, 0 Refills, Maintenance, [...]
--- OUTSIDE RECORDS SUMMARY | 2022-03-25 13:46 | XMS_ITS | Continuity of Care Document ---
:1990 Author Organization [facility] [employer] Address [address] [place] [address], [address] [place] [id number]- Care Team Providers Name Role Phone Name Javy FELIX Primary Care Physician Encounter [facility] Date(s): 08/15/21 - 11/08/21 [facility] [address] [place] [address], [address] [place] [id number] Attending Physician: Walter Valencia MD Referring Physician: Name Javy FELIX Allergies, Adverse Reactions, Alerts Substance Reaction Severity Status medtronidazole containing compounds rash Persistent M oderate Active edema Immunizations Given and Recorded Vaccine Date Status Refusal Reason Diphth-Tetanus Toxoids Adsorbed(oldterm)1 02/26/06 Given 1Admin Note: 6-94 VIS MFG BY [facility] Medications Gabapentin By Mouth, 0 Refills, [...] 3 Refills, Maintenance, 08/02/21 15:50:00 EDT, Tablet, [facility], Partial fill upon patient request if the prescription is for a schedule II opioid drug., 163, cm, 08/02/21 14:28:0... Start Date: 08/02/21 Status: Ordered Problem List Condition Effective Dates Status Health Status Informant HPV (human papilloma virus) positive Active 2019. Last Pap 05/02/21 negative, HPV not done(Confirmed) Migraines with aura(Confirmed) Active Sterilization desired, [facility] and Active [facility] sterilization consent forms signed 08/02/21(Confirmed) Polycystic ovary syndrome Active (PCOS)(Confirmed) Secondary amenorrhea(Confirmed) Active Severe obesity(Confirmed) Active Social History Social History Type Response Smoking Status Former smoker, quit more keke n 30 days ago entered on: 05/03/21 Sex
--- OUTSIDE RECORDS SUMMARY | 2022-03-25 13:46 | XMS_ITS | Continuity of Care Document ---
:1990 Author Organization [facility] Address [address] [place] [address], [address] [place] [id number]- Care Team Providers Name Role Phone Name Javy FELIX Primary Care Physician Encounter [facility] [place] Date(s): 08/02/21 - 08/09/21 [facility] [address] [place] [address], [address] [place] [id number] Attending Physician: Walter Valencia MD Referring Physician: Not on Staff, Referring [...] 3 Refills, Maintenance, 08/02/21 15:50:00 EDT, Tablet, [facility], Partial fill upon patient request if the prescription is for a schedule II opioid drug., 163, cm, 08/02/21 14:28:0... Start Date: 08/02/21 Status: Ordered Problem List Condition Effective Dates Status Health Status Informant HPV (human papilloma virus) positive Active 2019. Last Pap 05/02/21 negative, HPV not done(Confirmed) Migraines with aura(Confirmed) Active Sterilization desired, [facility] and Active [facility] sterilization consent forms signed 08/02/21(Confirmed) Polycystic ovary syndrome Active (PCOS)(Confirmed) Secondary amenorrhea(Confirmed) Active Severe obesity(Confirmed) Active Procedures Procedure Date Related Diagnosis Body Site Status section 08/15/16 Completed Biopsy of left breast Comple jose f Vital Signs Most recent to oldest [Reference Range]: 1 Height 163.00 cm (08/02/21 2:28 PM) Weight 117.27 kg (08/02/21 2:28 PM) Body Mass Index [18.5-24.99] 44.14 *>HHI* (08/02/21 2:28 PM) Blood Pressure [90-138/55-84 mm Hg] 112/82 mm Hg (08/02/21 2:28 PM) Blood pressure sites Arm, left (08/02/21 2:28 PM) Weight Obtained Via Standing scale (08/02/21 2:28 PM) Social History Social History Type Response Smoking Status Former smoker, quit more keke n 30 days ago entered on: 05/03/21 Sex
--- OUTSIDE RECORDS SUMMARY | 2022-03-25 13:46 | XMS_ITS | Continuity of Care Document ---
:1990 Author Organization [facility] Address [address] [place] [address]- Care Team Providers Name Role Phone Name Javy FELIX Primary Care Physician Encounter [facility] [place] Date(s): 08/10/21 - 11/09/[address] [id number] Attending Physician: Walter Valencia MD Admitting Physician: Walter Valencia MD Allergies, Adverse Reactions, Alerts Substance Reaction Severity Status medtronidazole containing compounds rash Persistent M oderate Active edema Immunizations Given and Recorded Vaccine Date Status Refusal Reason Diphth-Tetanus Toxoids Adsorbed(oldterm)1 02/26/06 Given 1Admin Note: 694 VIS MFG BY [facility] Medications Gabapentin By Mouth, 0 Refills, [...] 3 Refills, Maintenance, 08/02/21 15:50:00 EDT, Tablet, [facility], Partial fill upon patient [...]
[2022-03-25 13:48] LABS: MANUAL DIFF FLAG NO
[2022-03-25 13:49] LABS: Basophils Absolute Auto 0.1 X10*3/uL (0.0-0.2); Basophils Percent Auto 0.7 % (0-2); Eosinophils Absolute Auto 0.1 X10*3/uL (0.0-0.4); Hematocrit 37.1 % (37.0-47.0); Hemoglobin 11.8 g/dl (12.0-16.0); Imm Gran Abs Auto 0.02 X10*3/uL (0.00-0.03); Imm Gran Pct Auto 0.3 % (0.0-0.4); Lymphocytes Absolute Auto 2.1 X10*3/uL (1.2-4.9); Mean Corpuscular HGB Conc 31.8 g/dl (31.0-35.0); Mean Corpuscular Volume 88.1 fL (80.0-98.0); Mean Platelet Volume 12.3 fL (9.4-12.3); Monocytes Absolute Auto 0.4 X10*3/uL (0.1-1.2); Monocytes Percent Auto 5.2 % (2-11); Neutrophils Absolute Auto 4.9 x10*3/uL (2.0-8.3); Neutrophils Percent Auto 64.8 % (45-73); Platelet Count 280 X10*3/uL (160-400); Red Blood Count 4.21 X10*6/uL (4.20-5.50); Red Cell Distribution Width 13.7 % (11.0-16.0); White Blood Count 7.6 X10*3/uL (4.8-10.8)
[2022-03-25 14:16] LABS: Alanine Aminotransferase 10 U/L (0-31); Alkaline Phosphatase 64 U/L (39-117); Anion Gap 10 (12-20); Aspartate Amino Transferase 13 U/L (5-31); Bilirubin Total 0.3 mg/dL (0.0-1.0); Blood Urea Nitrogen 10 mg/dL (9-16); Calcium 9.4 mg/dL (8.4-10.2); Carbon Dioxide 28 mmol/L (22-29); Chloride 108 mmol/L (96-108); Creatinine Clr Calc Pharmacy 129.5; Estimated Glomerular Filt Rate > 60; Glucose Random 120 mg/dL (60-115); Potassium 4.3 mmol/L (3.3-5.1); Sodium 142 mmol/L (135-145)
[2022-03-25 14:18] LABS: HCG Quantitative < 2 mIU/mL
[2022-03-25 14:27] LABS: Influenza A PCR NEGATIVE (Negative); Influenza B PCR NEGATIVE (Negative); Resp Syncy Virus RNA Qual PCR NEGATIVE (Negative); SARS COV2 PCR INHOUSE NEGATIVE (Negative)
== END 2022-03-25 16:59 | disposition left against medical advice (07) ==
PROVIDERS: Physician Assistant Medical; Emergency Provider Emergency Medicine; PCP Internal Medicine Geriatric Medicine
DX: R42 Dizziness and giddiness (principal); M54.50 Low back pain, unspecified; Z20.828 Contact with and (suspected) exposure to other viral communicable diseases; E66.9 Obesity, unspecified; Z68.34 Body mass index [BMI] 34.0-34.9, adult; Z87.891 Personal history of nicotine dependence
CPT/HCPCS: 0241U; 36415; 80053; 83735; 84702; 85025; 85610; 93005; 99283

== ENCOUNTER → 2022-05-16 13:46 | Outpatient (BNVA) | payer MEDICAID, SELFPAY | PROVIDERS: PCP Internal Medicine Geriatric Medicine; Referring Provider Internal Medicine Geriatric Medicine; Visit Provider Dietitian, Registered | DX: O99.841 Bariatric surgery status complicating pregnancy, first trimester (principal); Z3A.01 Less than 8 weeks gestation of pregnancy; Z71.3 Dietary counseling and surveillance | CPT/HCPCS: 97803 ==

== ENCOUNTER 2022-05-19 12:00 | Emergency (ER) | payer MEDICAID, SELFPAY ==
--- NOTE | ~2022-05-19 | US_ITS ---
EXAMINATION: US FIRST TRIMESTER CLINICAL INFORMATION: Question ectopic LMP: 04/10/2022 Beta-hCG: Unknown COMPARISON: None available. TECHNIQUE: Transabdominal imaging was performed. FINDINGS: UTERUS AND INTRAUTERINE GESTATIONAL SAC: There is a single intrauterine gestational sac. 1 x 0.5 x 0.99 cm. Suggesting a of 5 weeks 4 days with estimated date of confinement 01/15/2023. Small yolk sac detected. No pole or heartbeat yet. SUBCHORIONIC HEMORRHAGE: None OVARIES: Right: Normal Left: Normal corpus luteal cyst 3 x 2.9 x 2.8 cm. FREE FLUID: There is a small amount of fluid in the cul-de-sac. OTHER FINDINGS: There is probably a very small subchorionic hemorrhage 6 x 3 x 4 mm. US/US OB pelvic and transvaginal IMPRESSION: 1. Endometrial cystic structure probably gestational sac 1 cm suggesting of 5 weeks 4 days. 2. pole not visualized might be too early in the . 3. There is probably a small subchorionic hemorrhage present 6 mm. Clinical correlation and Attention to follow-up ultrasound recommended.
[2022-05-19 12:09] VITALS: BP 127/57; PULSE 74; RESP 18; TEMP 36.3; O2SAT 98; BMI 33.5
[2022-05-19 12:58] LABS: HCG Quantitative 9142 mIU/mL
--- NOTE | 2022-05-19 14:48 | ED.GENADULT ---
HPI - General Adult General Chief complaint: General Medical Stated complaint: Abnormal BP Time Seen by Provider: 05/19/22 14:01 Source: patient Mode of arrival: ambulatory Limitations: no limitations History of Present Illness HPI narrative: Patient is a 31-year-old female who presents to the emergency department for evaluation. Patient reports about 2 hours prior to arrival she was home when she began feeling shaky/tremulous and had a headache nausea. This prompted her to check blood pressure she states was home, systolic blood pressure 158, does not recall diastolic. She change the batteries and then recheck did a few minutes later, and it was low below normal but does not recall the number. She also states that she has been having right lower back pain intermittently over the past week, at times it radiates into the right lower quadrant/groin. Typically the pain might last a few hours and then self resolves. She is currently experiencing this pain. Last menstrual period 04/10/2022, reports that she took an at-home test which was positive, has not yet had evaluation by OB, has appointment scheduled for 06/03/2022, Making her estimated due date 01/15/2023. Denies any pelvic pain, abnormal vaginal discharge, vaginal bleeding, dysuria, urinary frequency/urgency/hesitancy. Denies associated fevers, chills, vomiting, bladder or bowel dysfunction, precipitating injury. Related Data Previous Rx's Medication Instructions Recorded calcium citrate 315 mg-vitamin D3 1 tab PO DAILY #60 tabs 12/14/21 5 mcg (200 unit) tablet prenat.vits,adela,hbp-zlug-fwftb 1 tab PO DAILY #30 tabs 05/19/22 pyridoxine (vitamin B6) 25 mg 25 mg PO Q6H PRN nausea and 05/19/22 tablet vomiting #30 tabs Allergies Allergy/AdvReac Type Severity Reaction Status Date / Time latex Allergy Severe Anaphylaxis Verified 12/14/21 13:21 red dye Allergy Severe Anaphylaxis Verified 12/14/21 13:21 amoxicillin Allergy Intermediate Blisters, Verified 12/14/21 13:21 hives Review of Systems Review of Systems: Yes all other systems are reviewed and are negative PMFSH Past Medical History Attestation statement: The following information was validated with the patient. Source: old records reviewed Medical History Anemia Anxiety Back pain delivery delivered Congenital intra-abdominal adhesions Herpes simplex virus (HSV) infection HIV exposure Knee pain Migraine with aura Morbid obesity Surgical History H/O breast biopsy Hx of section Status post sleeve gastrectomy Family History Family History Father Mental health disorder Mother Acute arthritis Carpal tunnel syndrome Sister Cervical cancer Sister No problems noted. Brother No problems noted. Son No problems noted. Social History Social History Are you a primary ocular care technologist to a significant other at home: Yes (son age 5, mother will help after surgery) Do you presently have visiting nurse or other home services: No Alcohol intake: never Patient Tobacco Use Status: Former Tobacco user Quit Date: 2015 Tobacco use type: Cigarette Advance Directives: No Advance Directives Information Provided: Yes service: No Current occupational status: disabled Sexual orientation: Straight/Heterosexual Gender identity: Female Physical Exam ED Vital Signs: Vital Signs - 24 hr 05/19/22 12:09 05/19/22 15:46 Temperature 97.4 F 97.2 F Pulse Rate 74 58 Respiratory Rate 18 16 Blood Pressure 127/57 L 107/59 L Pulse Oximetry 98 98 Oxygen Delivery Method Room Air Room Air BMI result Body Mass Index 33.5 Appearance: Alert.?Oriented to person, place and time. No acute distress.?Normal affect. Eyes: Pupils equal, round and reactive to light.? EOMI. No nystagmus. ENT: Pharynx normal.??TM normal bilaterally Neck: Normal inspection.? Neck supple.??No cervical lymphadenopathy CVS: Heart sounds normal. Normal heart rate and rhythm.? Pulses normal.?? Respiratory: No respiratory distress.? Lung sounds clear to auscultation bilaterally?? Abdomen: Soft and non-tender. Normoactive bowel sounds. Skin: Skin warm and dry.? Normal skin color.? Extremities: No lower extremity edema.? Neuro: Moves all extremities spontaneously. Sensation intact bilaterally. Ambulates with normal steady gait. Course Reevaluation(s) Reevaluation #1: CBC reveals a mild normocytic anemia consistent with baseline does not meet transfusion criteria. CMP is overall unremarkable. Urinalysis with pyuria and urine bacteria, also with squamous epithelial cells, no urinary symptoms, at this time suspect urogenital contamination. COVID-19 and influenza testing are negative. Ultrasound revealing probable gestational sac suggesting of 5 weeks 4 days, pole is not visualized, no heartbeat, though it may be too early, there is also probable small subchorionic hemorrhage present. I consulted with OB on-call, Dr. Jha; will obtain Rh status, in administer RhoGAM accordingly, reviewed with patient spontaneous /ectopic warnings. It was recommended that she have repeat ultrasound in 11 days and follow-up in office within 2 days. I will provide patient with contact information for Dr. Jha use office in the event that her OB office, which she has not yet been seen by, is unable to accommodate these. Additionally, will send prescription for vitamin B6 25 mg every 6 hours as needed for nausea and vitamin daily to pharmacy. Time: 16:52 Reevaluation #2: Rh negative, RhoGAM administered. Stable for discharge Time: 18:30 Medications Administered Discontinued Medications Generic Name Dose Route Start Last Admin Trade Name Freq PRN Reason Stop Dose Admin Rho Immune Globulin 300 mcg 05/19/22 18:12 05/19/22 18:27 Rho(D) Immune Globulin 300 Mcg Syringe IM 05/19/22 18:13 300 mcg ONCE ONE Administration Medical Decision Making Medical Decision Making [facility] Narrative: Patient is a 31 year old female G3 T1 L1, with past medical history of anemia, anxiety, HSV, obesity who presents emergency department for evaluation of multiple symptoms as reported in HPI. Time my examination she is tearing, nontoxic. Blood pressure is within normal limits, she is afebrile without tachycardia, tachypnea, hypoxia. No respiratory distress. Abdominal examination is benign, no rigidity, no guarding, rebound tenderness. At this time not consistent with acute abdomen. Differential Diagnosis Differential Diagnoses: The differential diagnosis associated with the presentation includes (Urinary tract infection, pyelonephritis, nephrolithiasis, hydronephrosis, , viral syndrome, COVID-19, influenza) Lab Data [facility] Lab Attestation statement: I reviewed the patient's lab results. 05/19/22 14:45 05/19/22 14:45 Labs: Lab Results 05/19/22 05/19/22 05/19/22 Range/Units 12:23 14:45 14:45 WBC 8.2 (4.8-10.8) X10*3/uL RBC 3.98 L (4.20-5.50) X10*6/uL Hgb 11.2 L (12.0-16.0) g/dl Hct 34.3 L (37.0-47.0) % MCV 86.2 (80.0-98.0) fL MCH 28.1 (27.0-33.0) pg MCHC 32.7 (31.0-35.0) g/dl RDW 13.9 (11.0-16.0) % Plt Count 297 (160-400) X10*3/uL MPV 11.6 (9.4-12.3) fL Immature Gran % (Auto) 0.2 (0.0-0.4) % Neut % (Auto) 64.7 (45-73) % Lymph % (Auto) 27.7 (20-40) % Millard % (Auto) 5.6 (2-11) % Eos % (Auto) 1.2 (0-4) % Baso % (Auto) 0.6 (0-2) % Lymph # (Auto) 2.3 (1.2-4.9) X10*3/uL Millard # (Auto) 0.5 (0.1-1.2) X10*3/uL Eos # (Auto) 0.1 (0.0-0.4) X10*3/uL Baso # (Auto) 0.1 (0.0-0.2) X10*3/uL Abs Immat Gran (auto) 0.02 (0.00-0.03) X10*3/uL Absolute Neuts (auto) 5.3 (2.0-8.3) x10*3/uL Absolute Nucleated RBC 0.000 (0.0-0.012) X10*3/uL Nucleated RBC % (auto) 0.0 (0.0-0.2) /100WBC Sodium 141 (135-145) mmol/L Potassium 4.5 (3.3-5.1) mmol/L Chloride 109 H (96-108) mmol/L Carbon Dioxide 21 L (22-29) mmol/L Anion Gap 16 (12-20) BUN 11 (9-16) mg/dL Creatinine 0.62 (0.5-1.4) mg/dL Estim Creat Clear Calc 138.9 Estimated GFR > 60 Random Glucose 85 (60-115) mg/dL Calcium 8.7 D (8.4-10.2) mg/dL Total Bilirubin 0.3 (0.0-1.0) mg/dL AST 15 (5-31) U/L ALT 10 (0-31) U/L Alkaline Phosphatase 64 (39-117) U/L Total Protein 6.8 (6.5-8.0) g/dL Albumin 3.7 (3.5-5.0) g/dL Beta HCG, Quant 9142 mIU/mL Urine Color Urine Appearance Urine pH (5.0-9.0) Ur Specific [place] (1.005-1.025) Urine Protein (Neg-Trace) mg/dL Urine Glucose (UA) (Negative) mg/dL Urine Ketones (Negative) mg/dL Urine Blood (Negative) Urine Nitrite (Negative) Ur Leukocyte Esterase (Negative) Urine RBC (0-2) /HPF Urine WBC (0-5) /HPF Ur Squamous Epith Cells (0-2) /HPF Urine Bacteria (None Seen) Hyaline Casts (0-2) /LPF COVID-19 (YAMILKA) (Negative) COVID-19 Clin Com Influenza Type A (BETH) (Negative) Influenza Type B (BETH) (Negative) Influenza A & B Note Blood Type 05/19/22 05/19/22 05/19/22 Range/Units 14:45 14:45 15:48 WBC (4.8-10.8) X10*3/uL RBC (4.20-5.50) X10*6/uL Hgb (12.0-16.0) g/dl Hct (37.0-47.0) % MCV (80.0-98.0) fL MCH (27.0-33.0) pg MCHC (31.0-35.0) g/dl RDW (11.0-16.0) % Plt Count (160-400) X10*3/uL MPV (9.4-12.3) fL Immature Gran % (Auto) (0.0-0.4) % Neut % (Auto) (45-73) % Lymph % (Auto) (20-40) % Millard % (Auto) (2-11) % Eos % (Auto) (0-4) % Baso % (Auto) (0-2) % Lymph # (Auto) (1.2-4.9) X10*3/uL Millard # (Auto) (0.1-1.2) X10*3/uL Eos # (Auto) (0.0-0.4) X10*3/uL Baso # (Auto) (0.0-0.2) X10*3/uL Abs Immat Gran (auto) (0.00-0.03) X10*3/uL Absolute Neuts (auto) (2.0-8.3) x10*3/uL Absolute Nucleated RBC (0.0-0.012) X10*3/uL Nucleated RBC % (auto) (0.0-0.2) /100WBC Sodium (135-145) mmol/L Potassium (3.3-5.1) mmol/L Chloride (96-108) mmol/L Carbon Dioxide (22-29) mmol/L Anion Gap (12-20) BUN (9-16) mg/dL Creatinine (0.5-1.4) mg/dL Estim Creat Clear Calc Estimated GFR Random Glucose (60-115) mg/dL Calcium (8.4-10.2) mg/dL Total Bilirubin (0.0-1.0) mg/dL AST (5-31) U/L ALT (0-31) U/L Alkaline Phosphatase (39-117) U/L Total Protein (6.5-8.0) g/dL Albumin (3.5-5.0) g/dL Beta HCG, Quant mIU/mL Urine Color Yellow Urine Appearance Cloudy Urine pH 6.0 (5.0-9.0) Ur Specific [place] >= 1.030 H (1.005-1.025) Urine Protein Negative (Neg-Trace) mg/dL Urine Glucose (UA) Negative (Negative) mg/dL Urine Ketones Trace (Negative) mg/dL Urine Blood Negative (Negative) Urine Nitrite Negative (Negative) Ur Leukocyte Esterase Small (1+) H (Negative) Urine RBC 0-2 (0-2) /HPF Urine WBC 21-50 H (0-5) /HPF Ur Squamous Epith Cells >20 (0-2) /HPF Urine Bacteria 2+ (None Seen) Hyaline Casts 0-2 (0-2) /LPF COVID-19 (YAMILKA) Negative (Negative) COVID-19 Clin Com See Note Influenza Type A (BETH) Negative (Negative) Influenza Type B (BETH) Negative (Negative) Influenza A & B Note See Note Blood Type 05/19/22 Range/Units 17:06 WBC (4.8-10.8) X10*3/uL RBC (4.20-5.50) X10*6/uL Hgb (12.0-16.0) g/dl Hct (37.0-47.0) % MCV (80.0-98.0) fL MCH (27.0-33.0) pg MCHC (31.0-35.0) g/dl RDW (11.0-16.0) % Plt Count (160-400) X10*3/uL MPV (9.4-12.3) fL Immature Gran % (Auto) (0.0-0.4) % Neut % (Auto) (45-73) % Lymph % (Auto) (20-40) % Millard % (Auto) (2-11) % Eos % (Auto) (0-4) % Baso % (Auto) (0-2) % Lymph # (Auto) (1.2-4.9) X10*3/uL Millard # (Auto) (0.1-1.2) X10*3/uL Eos # (Auto) (0.0-0.4) X10*3/uL Baso # (Auto) (0.0-0.2) X10*3/uL Abs Immat Gran (auto) (0.00-0.03) X10*3/uL Absolute Neuts (auto) (2.0-8.3) x10*3/uL Absolute Nucleated RBC (0.0-0.012) X10*3/uL Nucleated RBC % (auto) (0.0-0.2) /100WBC Sodium (135-145) mmol/L Potassium (3.3-5.1) mmol/L Chloride (96-108) mmol/L Carbon Dioxide (22-29) mmol/L Anion Gap (12-20) BUN (9-16) mg/dL Creatinine (0.5-1.4) mg/dL Estim Creat Clear Calc Estimated GFR Random Glucose (60-115) mg/dL Calcium (8.4-10.2) mg/dL Total Bilirubin (0.0-1.0) mg/dL AST (5-31) U/L ALT (0-31) U/L Alkaline Phosphatase (39-117) U/L Total Protein (6.5-8.0) g/dL Albumin (3.5-5.0) g/dL Beta HCG, Quant mIU/mL Urine Color Urine Appearance Urine pH (5.0-9.0) Ur Specific [place] (1.005-1.025) Urine Protein (Neg-Trace) mg/dL Urine Glucose (UA) (Negative) mg/dL Urine Ketones (Negative) mg/dL Urine Blood (Negative) Urine Nitrite (Negative) Ur Leukocyte Esterase (Negative) Urine RBC (0-2) /HPF Urine WBC (0-5) /HPF Ur Squamous Epith Cells (0-2) /HPF Urine Bacteria (None Seen) Hyaline Casts (0-2) /LPF COVID-19 (YAMILKA) (Negative) COVID-19 Clin Com Influenza Type A (BETH) (Negative) Influenza Type B (BETH) (Negative) Influenza A & B Note Blood Type O Negative Independent Interpretation I performed an independent interpretation of an: Ultrasound Radiology Impression Discussion of test interpretation with radiology: I have reviewed the radiologist's reading. Independent Historian Clinical information obtained from an independent historian. History obtained from or confirmed by: Spouse External Record Review External record reviewed: Office record Discharge Plan Discharge Clinical Impression: First trimester , Subchorionic hemorrhage Patient Disposition: Home, Self-Care Instructions: First Trimester (ED) Additional Instructions: As we discussed, the ultrasound indicates a likely early with estimated gestation of 5 weeks 4 days. We were unable to see a pole or heartbeat which is not uncommon when it is this early in . As we discussed, there is concern of a possible subchorionic hemorrhage, this should be further evaluated. You received RhoGAM while in the emergency department It was recommended by our OB provider that you have a repeat ultrasound in 11 days and follow-up in office within OB provider within the next 2 days. As you have made us aware, you have a scheduled appointment with [facility], you may contact their office tomorrow to try and arrange for follow-up as recommended. If you have any complication with this, I have also provided you with contact information for Dr. Jha use office to follow-up with. I have sent a prescription for vitamin B6 to the pharmacy, you may use this every 6 hours as needed for nausea, and I have also sent a prescription for a daily vitamin. You may return back to emergency department with any new or worsening symptoms or concerns. Prescriptions: New pyridoxine (vitamin B6) 25 mg tablet 25 mg PO Q6H PRN (Reason: nausea and vomiting) Qty: 30 0RF prenat.vits,adela,gnl-rhro-kkyft Tablet 1 tab PO DAILY Qty: 30 0RF No Action calcium citrate-vitamin D3 315 mg-5 mcg (200 unit) tablet 1 tab PO DAILY Qty: 60 5RF
[2022-05-19 14:54] LABS: MANUAL DIFF FLAG NO
[2022-05-19 14:55] LABS: Basophils Absolute Auto 0.1 X10*3/uL (0.0-0.2); Basophils Percent Auto 0.6 % (0-2); Eosinophils Absolute Auto 0.1 X10*3/uL (0.0-0.4); Eosinophils Percent Auto 1.2 % (0-4); Hematocrit 34.3 % (37.0-47.0); Hemoglobin 11.2 g/dl (12.0-16.0); Imm Gran Abs Auto 0.02 X10*3/uL (0.00-0.03); Imm Gran Pct Auto 0.2 % (0.0-0.4); Lymphocytes Absolute Auto 2.3 X10*3/uL (1.2-4.9); Lymphocytes Percent Auto 27.7 % (20-40); Mean Corpuscular HGB Conc 32.7 g/dl (31.0-35.0); Mean Corpuscular Hemoglobin 28.1 pg (27.0-33.0); Mean Corpuscular Volume 86.2 fL (80.0-98.0); Mean Platelet Volume 11.6 fL (9.4-12.3); Monocytes Absolute Auto 0.5 X10*3/uL (0.1-1.2); Monocytes Percent Auto 5.6 % (2-11); Neutrophils Absolute Auto 5.3 x10*3/uL (2.0-8.3); Neutrophils Percent Auto 64.7 % (45-73); Platelet Count 297 X10*3/uL (160-400); Red Blood Count 3.98 X10*6/uL (4.20-5.50); Red Cell Distribution Width 13.9 % (11.0-16.0); White Blood Count 8.2 X10*3/uL (4.8-10.8)
[2022-05-19 15:11] LABS: COVID-19 Test Negative (Negative); IDNOW Serial# 9DB6401D; IDNOW Serial# BCCEAD1C; Influenza A Negative (Negative); Influenza B2 Negative (Negative)
[2022-05-19 15:28] LABS: Alanine Aminotransferase 10 U/L (0-31); Albumin Level 3.7 g/dL (3.5-5.0); Alkaline Phosphatase 64 U/L (39-117); Anion Gap 16 (12-20); Aspartate Amino Transferase 15 U/L (5-31); Bilirubin Total 0.3 mg/dL (0.0-1.0); Blood Urea Nitrogen 11 mg/dL (9-16); Calcium 8.7 mg/dL (8.4-10.2); Carbon Dioxide 21 mmol/L (22-29); Chloride 109 mmol/L (96-108); Creatinine Clr Calc Pharmacy 138.9; Estimated Glomerular Filt Rate > 60; Glucose Random 85 mg/dL (60-115); Potassium 4.5 mmol/L (3.3-5.1); Sodium 141 mmol/L (135-145); Total Protein 6.8 g/dL (6.5-8.0)
[2022-05-19 15:46] VITALS: BP 107/59; PULSE 58; RESP 16; TEMP 36.2; O2SAT 98
--- NOTE | 2022-05-19 15:49 | MHC.EDTECH ---
pt vitals sign taken ,urine sample collected and sent to lab .
[2022-05-19 15:57] LABS: Appearance Urine Cloudy; Color Urine Yellow; Glucose Urine UA Negative (Negative); Leukocyte Esterase Urine Small (1+) (Negative); Nitrite Urine Negative (Negative); Specific Gravity - Urine >= 1.030 (1.005-1.025); UMIC TRIGGER UACC YES; Urine Blood Negative (Negative); Urine Ketones Trace mg/dL (Negative); Urine Protein Negative (Neg-Trace)
[2022-05-19 15:59] LABS: Bacteria Urine 2+ (None Seen); Hyaline Casts Urine 0-2 /LPF (0-2); RBC Urine 0-2 /HPF (0-2); Squamous Epithelial Cell Urine >20 /HPF (0-2); UACC Culture Trigger YES; WBC Urine 21-50 /HPF (0-5)
--- NOTE | 2022-05-19 16:51 | PM.GYNCN ---
CIRCUIT BOARD REPAIR TECHNICIAN - CN: HPI Data of Consult Consult date: 05/19/22 Primary Care Provider: Javy Pena MD Consult Narrative Narrative: I was consulted on Juana Lay who is a 31 year old female presenting to the emergency complaining of nausea intermittently over the last week associated with right lower back pain radiating to the right lower quadrant/groin. The patient's last menstrual period 04/10/2022 making her by today at 5 weeks and 4 days of gestation, no care so far, the patient has an appointment scheduled on 06/03/2022, no pelvic pain, abnormal vaginal discharge, vaginal bleeding, dysuria, urinary frequency/urgency/hesitancy, no fevers, chills, no vomiting, or any other concerns in the emergency room hCG was 9142, ultrasound showed an intrauterine gestational sac at 5 weeks and 4 days of gestation with no pole Nor heart rate, with questionable subchorionic hemorrhage 6 mm in size. Rh status still pending. UA is positive for mild leukocyte esterase, negative for nitrite. COVID, influenza a and B all negative cc:: CC: OB PMF Past Medical History Medical History Anemia Anxiety Back pain delivery delivered Congenital intra-abdominal adhesions Herpes simplex virus (HSV) infection HIV exposure Knee pain Migraine with aura Morbid obesity Family History Family History Father Mental health disorder Mother Acute arthritis Carpal tunnel syndrome Sister Cervical cancer Sister No problems noted. Brother No problems noted. Son No problems noted. Surgical History Surgical History H/O breast biopsy Hx of section Status post sleeve gastrectomy Social History Social History Are you a primary care advocate to a significant other at home: Yes (son age 5, mother will help after surgery) Do you presently have visiting nurse or other home services: No Alcohol intake: never Patient Tobacco Use Status: Former Tobacco user Quit Date: 2015 Tobacco use type: Cigarette Advance Directives: No Advance Directives Information Provided: Yes service: No Current occupational status: disabled Sexual orientation: Straight/Heterosexual Gender identity: Female Meds Allergies Allergy/AdvReac Type Severity Reaction Status Date / Time latex Allergy Severe Anaphylaxis Verified 12/14/21 13:21 red dye Allergy Severe Anaphylaxis Verified 12/14/21 13:21 amoxicillin Allergy Intermediate Blisters, Verified 12/14/21 13:21 hives CIRCUIT BOARD REPAIR TECHNICIAN Physical Exam Vitals Vital signs: Temp Pulse Resp BP Pulse Ox O2 Del Method 97.2 F 58 16 107/59 L 98 05/19/22 15:46 05/19/22 15:46 05/19/22 15:46 05/19/22 15:46 05/19/22 15:46 05/19/22 15:46 BMI result Body Mass Index 33.5 Additional Comments: Physical reported by LUCILA Sales as the following: Abdomen, soft, nontender. CIRCUIT BOARD REPAIR TECHNICIAN - Results Labs 05/19/22 14:45 05/19/22 14:45 Labs: Short CBC 05/19/22 Range/Units 14:45 WBC 8.2 (4.8-10.8) X10*3/uL Hgb 11.2 L (12.0-16.0) g/dl Hct 34.3 L (37.0-47.0) % Plt Count 297 (160-400) X10*3/uL BMP 05/19/22 14:45 Sodium 141 Potassium 4.5 Chloride 109 H Carbon Dioxide 21 L BUN 11 Creatinine 0.62 Calcium 8.7 D Liver Function 05/19/22 Range/Units 14:45 Total Bilirubin 0.3 (0.0-1.0) mg/dL AST 15 (5-31) U/L ALT 10 (0-31) U/L Alkaline Phosphatase 64 (39-117) U/L Albumin 3.7 (3.5-5.0) g/dL Urine 05/19/22 Range/Units 15:48 Urine Color Yellow Urine Appearance Cloudy Urine pH 6.0 (5.0-9.0) Ur Specific [place] >= 1.030 H (1.005-1.025) Urine Protein Negative (Neg-Trace) mg/dL Urine Glucose (UA) Negative (Negative) mg/dL Imaging US - abdomen: Radiologist's impression: ITS Impressions Pelvic/Transvag US 05/19/22 15:33 IMPRESSION: 1. Endometrial cystic structure probably gestational sac 1 cm suggesting of 5 weeks 4 days. 2. pole not visualized might be too early in the . 3. There is probably a small subchorionic hemorrhage present 6 mm. Clinical correlation and Attention to follow-up ultrasound recommended. Assessment and Plan (1) Early stage of : Status: Acute Plan Recommended to LUCILA Sales the following: Hydration, anti emetic and p.o. challenge, if patient tolerates p.o. diet, discharge patient on vitamin B6 g p.o. q.i.d. p.r.n. nausea/vomiting. Since the ultrasound shows a subchorionic hemorrhage, and the patient's blood type is O negative , I recommend screen, if negative, RhoGAM 300 mcg IM (50 mcg injections are not available), although it is controversial whether RhoGAM is needed at this gestational age (below 49 days of gestation) and with subchorionic hemorrhage, but its benefits outweigh its risks. SAB /ectopic warnings, instructions to be given to patient to call or come back to emergency room in case of pelvic pain and/or vaginal bleeding, nausea and vomiting or abdominal pain. Follow-up in the office in 2 days and needs ultrasound 11 days for viability. I spent a total of 25 minutes reviewing the chart, communicating to the emergency room provider and documenting in the medical record Time Spent With Patient Time: Total time managing care of this patient today ____ minutes.
--- NOTE | 2022-05-19 17:21 | MHC.EDTECH ---
pt blood drawn and sent to lab .
[2022-05-19] MEDS: Rho(D) Immune Globulin 300 MCG SYRINGE IM (18:27)
== END 2022-05-19 18:47 | disposition home or self-care (01) ==
PROVIDERS: Nurse Practitioner Family; Emergency Provider Emergency Medicine; PCP Internal Medicine Geriatric Medicine
DX: O26.91 Pregnancy related conditions, unspecified, first trimester (principal); Z3A.01 Less than 8 weeks gestation of pregnancy; Z20.822 Contact with and (suspected) exposure to COVID-19; Z20.828 Contact with and (suspected) exposure to other viral communicable diseases; Z79.899 Other long term (current) drug therapy
CPT/HCPCS: 36415; 76801; 76817; 80053; 81001; 84702; 85025; 86900; 86901; 87086; 87088; 87186; 87502; 87635; 96372; 99283; 99284; J2790

== ENCOUNTER 2023-03-10 12:15 | Outpatient (REF) | payer MEDICAID, SELFPAY ==
[2023-03-13 07:49] LABS: TS Negative Control Passed; TS Panel A 0; TS Panel B 1; TS Positive Control Passed; TSpotTB Negative (Negative)
== END 2023-03-10 12:16 | disposition home or self-care (01) ==
LOC: HO.HHCL 12:15
PROVIDERS: Visit Provider Internal Medicine Geriatric Medicine
DX: Z11.1 Encounter for screening for respiratory tuberculosis (principal)
CPT/HCPCS: 36415; 86481

== ENCOUNTER 2023-06-24 10:04 | Outpatient (REF) | payer MEDICAID, SELFPAY ==
[2023-06-24 12:51] LABS: MANUAL DIFF FLAG NO
[2023-06-24 13:04] LABS: Basophils Absolute Auto 0.1 X10*3/uL (0.0-0.2); Basophils Percent Auto 1.1 % (0-2); Eosinophils Absolute Auto 0.2 X10*3/uL (0.0-0.4); Eosinophils Percent Auto 2.7 % (0-4); Hematocrit 39.7 % (37.0-47.0); Hemoglobin 13.1 g/dl (12.0-16.0); Imm Gran Abs Auto 0.02 X10*3/uL (0.00-0.03); Imm Gran Pct Auto 0.4 % (0.0-0.4); Lymphocytes Absolute Auto 1.7 X10*3/uL (1.2-4.9); Lymphocytes Percent Auto 30.2 % (20-40); Mean Corpuscular Volume 93.9 fL (80.0-98.0); Mean Platelet Volume 11.8 fL (9.4-12.3); Monocytes Absolute Auto 0.4 X10*3/uL (0.1-1.2); Monocytes Percent Auto 6.8 % (2-11); Neutrophils Absolute Auto 3.3 x10*3/uL (2.0-8.3); Neutrophils Percent Auto 58.8 % (45-73); Platelet Count 308 X10*3/uL (160-400); Red Blood Count 4.23 X10*6/uL (4.20-5.50); White Blood Count 5.6 X10*3/uL (4.8-10.8)
[2023-06-24 13:18] LABS: Estimated Average Glucose 91 mg/dL; Hemoglobin A1c % 4.8 % (<6.0)
[2023-06-24 13:24] LABS: Alanine Aminotransferase 15 U/L (0-31); Albumin Level 4.2 g/dL (3.5-5.0); Alkaline Phosphatase 58 U/L (39-117); Anion Gap 9 (12-20); Aspartate Amino Transferase 17 U/L (5-31); Bilirubin Total 0.4 mg/dL (0.0-1.0); Blood Urea Nitrogen 11 mg/dL (9-16); Calcium 9.6 mg/dL (8.4-10.2); Carbon Dioxide 31 mmol/L (22-29); Chloride 106 mmol/L (96-108); Cholesterol 228 mg/dL (<200); Estimated Glomerular Filt Rate > 60; Glucose Random 85 mg/dL (60-115); HDL Cholesterol 59 mg/dL (>40); LDL Cholesterol Calculated 138 mg/dL (<100); Potassium 4.5 mmol/L (3.3-5.1); Sodium 141 mmol/L (135-145); Total Protein 7.4 g/dL (6.5-8.0); Triglycerides 158 mg/dL (<150)
== END 2023-06-24 10:05 | disposition home or self-care (01) ==
LOC: HO.HHCL 10:04
PROVIDERS: Visit Provider Internal Medicine Geriatric Medicine
DX: Z00.00 Encounter for general adult medical examination without abnormal findings (principal); F32.A Depression, unspecified; Z86.32 Personal history of gestational diabetes; Z13.220 Encounter for screening for lipoid disorders
CPT/HCPCS: 36415; 80053; 80061; 83036; 85025

== ENCOUNTER 2023-10-10 14:43 | Outpatient (REF) | payer MEDICAID, SELFPAY ==
--- NOTE | ~2023-10-10 | XR_ITS ---
EXAMINATION: XR HIP, LEFT CLINICAL INFORMATION: Fell down steps now with hip pain. COMPARISON: None available. TECHNIQUE: Two views of the left hip. FINDINGS: No fracture. Alignment is anatomic. Hip joint space is maintained. Soft tissues are unremarkable. XR/XR hip LT min 2V IMPRESSION: Normal left hip. Electronically signed by: Delfino Washburn MD 11/27/2023 09:58 PM EDT RP
== END 2023-10-10 14:44 | disposition home or self-care (01) ==
LOC: HO.HHCX 14:43
PROVIDERS: Visit Provider Student in an Organized Health Care Education/Training Program
DX: M25.552 Pain in left hip (principal)
CPT/HCPCS: 73502

== ENCOUNTER 2023-12-05 15:43 | Outpatient (REF) | payer MEDICAID, SELFPAY ==
[2023-12-05 17:31] LABS: MANUAL DIFF FLAG NO
[2023-12-05 17:41] LABS: Basophils Absolute Auto 0.1 X10*3/uL (0.0-0.2); Basophils Percent Auto 0.6 % (0-2); Eosinophils Absolute Auto 0.1 X10*3/uL (0.0-0.4); Eosinophils Percent Auto 1.5 % (0-4); Hematocrit 34.1 % (37.0-47.0); Hemoglobin 11.2 g/dl (12.0-16.0); Imm Gran Abs Auto 0.03 X10*3/uL (0.00-0.03); Imm Gran Pct Auto 0.3 % (0.0-0.4); Lymphocytes Percent Auto 22.3 % (20-40); Mean Corpuscular HGB Conc 32.8 g/dl (31.0-35.0); Mean Corpuscular Volume 91.4 fL (80.0-98.0); Mean Platelet Volume 12.1 fL (9.4-12.3); Monocytes Absolute Auto 0.6 X10*3/uL (0.1-1.2); Monocytes Percent Auto 6.2 % (2-11); Neutrophils Absolute Auto 6.3 x10*3/uL (2.0-8.3); Neutrophils Percent Auto 69.1 % (45-73); Platelet Count 297 X10*3/uL (160-400); Red Blood Count 3.73 X10*6/uL (4.20-5.50); Red Cell Distribution Width 12.3 % (11.0-16.0); White Blood Count 9.1 X10*3/uL (4.8-10.8)
[2023-12-05 18:19] LABS: Creatinine Urine 303.89 mg/dL; Microalbum/Creatinine Ratio Ur 6.2 ug/mg cr (<30)
[2023-12-05 18:23] LABS: B Type Natriuretic Peptide 11 pg/mL (<100)
[2023-12-05 18:36] LABS: Alanine Aminotransferase 13 U/L (0-31); Albumin Level 3.8 g/dL (3.5-5.0); Alkaline Phosphatase 63 U/L (39-117); Anion Gap 12 (12-20); Aspartate Amino Transferase 16 U/L (5-31); Bilirubin Total 0.1 mg/dL (0.0-1.0); Blood Urea Nitrogen 11 mg/dL (9-16); Carbon Dioxide 26 mmol/L (22-29); Chloride 110 mmol/L (96-108); Estimated Glomerular Filt Rate > 60; Glucose Random 109 mg/dL (60-115); Potassium 3.4 mmol/L (3.3-5.1); Sodium 145 mmol/L (135-145); Total Protein 6.8 g/dL (6.5-8.0)
== END 2023-12-05 15:44 | disposition home or self-care (01) ==
LOC: HO.HHCL 15:43
PROVIDERS: Visit Provider Internal Medicine Geriatric Medicine
DX: R60.9 Edema, unspecified (principal)
CPT/HCPCS: 36415; 80053; 82043; 82570; 83880; 85025

== ENCOUNTER 2024-06-08 10:34 | Outpatient (AMB) | payer MEDICAID, SELFPAY ==
--- NOTE | 2024-06-08 11:05 | A.OFFVIS_ITS ---
VS Expanded 06/08/24 11:16 BP 129/76 Blood Pressure Location Rt brachial Blood Pressure Position Sitting Pulse 78 Pulse Source Pulse Oximeter Temp 97.9 F Temperature Source Temporal Artery Scan Pulse Oximetry 98 Oxygen Delivery Method Room Air Height 5 ft 4.5 in Weight 227 lb 6.4 oz BMI 38.4 Body Fat % 45.1 Body Fat Mass 102.6 Fat Free Mass 124.8 Visceral Fat Rating 11.0 Body Water % 39.4 Body Water Mass 89.6 Muscle Mass/Score 118.4 Basal Metabolic Rate/Score 1,771 Intake Visit Reasons: OV PO LSG 09/19/21 *GLP-1* Motor Vehicle Clerk Required: No Allergies latex Allergy (Severe, Verified 06/08/24 11:14) Anaphylaxis red dye Allergy (Severe, Verified 06/08/24 11:14) Anaphylaxis amoxicillin Allergy (Intermediate, Verified 06/08/24 11:14) Blisters, hives Medication List - Last Reconciled 06/08/24 by LUCILA Robles tirzepatide (weight loss) (Zepbound) 2.5 mg (0.5 mL) subcut QWEEK HPI Comments Details: Patient is a 33-year-old female who returns to the office today in follow-up. She is status post sleeve gastrectomy performed 09/19/2021. She is about 2 years 9 months postoperative. She was last seen in the office in 05/13/2022 with a weight of 190 lb. At that time, she was found to be 5 weeks . She had a baby boy December of 2022. Not taking any supplemental vitamins She is not following a meal plan: She is not exercising. No complaints of nausea, vomiting. Has a walking pad at home, walks outside intermittently with her 1-year-old baby [facility] Medical History Congenital intra-abdominal adhesions Back pain Anemia Knee pain Anxiety Morbid obesity Migraine with aura Herpes simplex virus (HSV) infection HIV exposure delivery delivered Surgical History Status post sleeve gastrectomy Hx of section H/O breast biopsy Family History Father Mental health disorder Mother Acute arthritis Carpal tunnel syndrome Sister Cervical cancer Sister No problems noted. Brother No problems noted. Son No problems noted. Social History Are you a primary team primary care physician to a significant other at home: Yes (son age 5, mother will help after surgery) Do you presently have visiting nurse or other home services: No Alcohol intake: never Patient Tobacco Use Status: Former Tobacco user Tobacco use type: Cigarette service: No Current occupational status: disabled Sexual orientation: Straight/Heterosexual Gender identity: Female Female Reproductive History Menstrual Age of Menarche: 7 Physical Exam Vital Signs: Last Vital Signs Temp 97.9 F 06/08/24 11:16 Pulse 78 06/08/24 11:16 BP 129/76 06/08/24 11:16 Pulse Ox 98 06/08/24 11:16 Oxygen Delivery Method Room Air 06/08/24 11:16 BMI result Body Mass Index 38.4 Const General: healthy appearing and no acute distress Resp Effort & Inspection: normal respiratory effort Auscultation: clear to auscultation bilaterally Cardio Rate: regular rate Rhythm: regular rhythm GI Auscultation: normal bowel sounds Extrem General: Yes normal to inspection Assessment & Plan Assessment & Plan (1) Status post sleeve gastrectomy: Comment: 09/19/2021 Code(s): Z90.3 - Acquired absence of stomach [part of] Category: Surgical Plan: Patient was given information regarding the right BMI jean. She will start a meal plan. Regarding exercise, she can not afford a gym membership at this time, but is able to walk outside and do home videos. I encouraged her to walk daily, tracking her calories. Goal is burning 300 calories per day or 2000 calories per week. Additionally, we will start Zepbound 2.5 mg subcutaneously weekly. Check yearly postop labs. Encouraged to obtain celebrate multivitamin and calcium plus D. Return to clinic 4-6 weeks Orders: Orders Hemoglobin A1c Today E53.8 - Deficiency of other specified B group vitamins, E55.9 - Vitamin D deficiency, unspecified, E78.5 - Hyperlipidemia, unspecified, F32.A - Depression, unspecified, K76.0 - Fatty (change of) liver, not elsewhere classified, Z90.3 - Acquired absence of stomach [part of] Complete Blood Count Auto Diff Today E53.8 - Deficiency of other specified B group vitamins, E55.9 - Vitamin D deficiency, unspecified, E78.5 - Hyperlipidemia, unspecified, F32.A - Depression, unspecified, K76.0 - Fatty (change of) liver, not elsewhere classified, Z90.3 - Acquired absence of stomach [part of] Lipid Panel Today E53.8 - Deficiency of other specified B group vitamins, E55.9 - Vitamin D deficiency, unspecified, E78.5 - Hyperlipidemia, unspecified, F32.A - Depression, unspecified, K76.0 - Fatty (change of) liver, not elsewhere classified, Z90.3 - Acquired absence of stomach [part of] IRON PROFILE Today E53.8 - Deficiency of other specified B group vitamins, E55. 9 - Vitamin D deficiency, unspecified, E78.5 - Hyperlipidemia, unspecified, F32.A - Depression, unspecified, K76.0 - Fatty (change of) liver, not elsewhere classified, Z90.3 - Acquired absence of stomach [part of] Comprehensive Met. Panel Today E53.8 - Deficiency of other specified B group vitamins, E55.9 - Vitamin D deficiency, unspecified, E78.5 - Hyperlipidemia, unspecified, F32.A - Depression, unspecified, K76.0 - Fatty (change of) liver, not elsewhere classified, Z90.3 - Acquired absence of stomach [part of] Vitamin B12 and Folate Today E53.8 - Deficiency of other specified B group vitamins, E55.9 - Vitamin D deficiency, unspecified, E78.5 - Hyperlipidemia, unspecified, F32.A - Depression, unspecified, K76.0 - Fatty (change of) liver, not elsewhere classified, Z90.3 - Acquired absence of stomach [part of] Zinc Today E53.8 - Deficiency of other specified B group vitamins, E55.9 - Vitamin D deficiency, unspecified, E78.5 - Hyperlipidemia, unspecified, F32.A - Depression, unspecified, K76.0 - Fatty (change of) liver, not elsewhere classified, Z90.3 - Acquired absence of stomach [part of] Vitamin B1 Today E53.8 - Deficiency of other specified B group vitamins, E55.9 - Vitamin D deficiency, unspecified, E78.5 - Hyperlipidemia, unspecified, F32.A - Depression, unspecified, K76.0 - Fatty (change of) liver, not elsewhere classified, Z90.3 - Acquired absence of stomach [part of] Insulin Today E53.8 - Deficiency of other specified B group vitamins, E55.9 - Vitamin D deficiency, unspecified, E78.5 - Hyperlipidemia, unspecified, F32.A - Depression, unspecified, K76.0 - Fatty (change of) liver, not elsewhere classified, Z90.3 - Acquired absence of stomach [part of] C Reactive Protein Today E53.8 - Deficiency of other specified B group vitamins, E55.9 - Vitamin D deficiency, unspecified, E78.5 - Hyperlipidemia, unspecified, F32.A - Depression, unspecified, K76.0 - Fatty (change of) liver, not elsewhere classified, Z90.3 - Acquired absence of stomach [part of] Vitamin A Today E53.8 - Deficiency of other specified B group vitamins, E55.9 - Vitamin D deficiency, unspecified, E78.5 - Hyperlipidemia, unspecified, F32.A - Depression, unspecified, K76.0 - Fatty (change of) liver, not elsewhere classified, Z90.3 - Acquired absence of stomach [part of] TSH reflex Free T4 Today E53.8 - Deficiency of other specified B group vitamins, E55.9 - Vitamin D deficiency, unspecified, E78.5 - Hyperlipidemia, unspecified, F32.A - Depression, unspecified, K76.0 - Fatty (change of) liver, not elsewhere classified, Z90.3 - Acquired absence of stomach [part of] Ferritin Today E53.8 - Deficiency of other specified B group vitamins, E55.9 - Vitamin D deficiency, unspecified, E78.5 - Hyperlipidemia, unspecified, F32.A - Depression, unspecified, K76.0 - Fatty (change of) liver, not elsewhere classified, Z90.3 - Acquired absence of stomach [part of] Vitamin D 25-OH Total Today E53.8 - Deficiency of other specified B group vitamins, E55.9 - Vitamin D deficiency, unspecified, E78.5 - Hyperlipidemia, unspecified, F32.A - Depression, unspecified, K76.0 - Fatty (change of) liver, not elsewhere classified, Z90.3 - Acquired absence of stomach [part of] Medications: New tirzepatide (weight loss) (Zepbound) for 4 weeks 2.5 mg (0.5 mL) subcut QWEEK 2 mL 0RF
[2024-06-08 11:16] VITALS: BP 129/76; PULSE 78; TEMP 36.6; O2SAT 98; BMI 38.4
--- OUTSIDE RECORDS SUMMARY | 2024-06-08 12:26 | XMS_ITS | Encounter Summary ---
Author Organization [employer] Address [address] [place] [address] Care Team Providers Care Blind Aide Name Role Phone Name, Javy FELIX Primary Care Provider [phone] Reason for Visit * Reason Onset Date Comments Letter for School/Work 03/05/2023 Encounter Details Date Type Department Care Team ([facility] st Contact Info) Description 03/05/[address] [facility] [address] [place] [address] Name, MD Javy [address] [place] [address] Letter for School/Work Social History Tobacco Use Types Packs/Day Years Used Date Smoking Tobacco: Never Smokeless Tobacco: Never Alcohol Use Standard Drinks/Week Comments Never 0 (1 standard drink = 0.6 oz pur e alcohol) Housing Stability Answer Date Recorded What is your housing situation today? I have larry dickens 01/14/[address] you li ve. Do you have problems with any of the following? None of the above 01/14/2023 Food Insecurity Answer Date Recorded Within the past 12 months, y ou worried that your food would run out before you got money to buy more: Never True 01/14/2023 Within the past 12 months,th e food you bought just didn't last and you didn't have enough money to get more: Never True Transportation Answer Date Recorded In the past 12 months, has l ack of transportation kept you from medical appts, meetings, work or from getting things needed for daily living? No 01/14/2023 Utilities Answer Date Recorded In the past 12 months, has t he electric, gas, oil or water company threatened to shut off services in your home? No 01/14/2023 Depression Answer Date Recorded Patient Health Questionnaire-2 Score 0 05/20/2022 Comments Unknown Sex and Gender Information Value Date Recorded Sex Assigned at Female 01/21/2022 10:20 AM EDT Legal Sex Female 10:20 AM EDT Gender Identity Choose not to disclose 10:20 AM EDT Sexual Orientation Straight 01/21/2022 10 :20 AM EDT documented as of this encounter Miscellaneous Notes * Telephone Encounter - Erin Nunez - 03/05/2023 12:59 PM EST Tc from pt requesting a letter stating she can work. Any questions, please contact pt at [phone] documented in this encounter Plan of Treatment Not on file documented as of this encounter Visit Diagnoses Not on filedocumented in this encounter Care Teams Blind Aide Relationship Specialty Start Date End Date Name, MD Javy [address] [place] [address] PCP - General Family Medicine 11/07/16 documented as of this encounter
--- OUTSIDE RECORDS SUMMARY | 2024-06-08 12:26 | XMS_ITS | Encounter Summary ---
Author Organization [employer] Address [address] [place] [address] [address] [place] [address] Care Team Providers Care Division Manager Name Role Phone Name, Javy FELIX Primary Care Provider Reason for Visit * Reason Comments Pre-visit Planning Pre-visit planning - LVM Encounter Details Date Type Department Care Team ([facility] st Contact Info) Description 05/21/2024 Patient Outreach [facility] MED[facility]INE [address] [place] [address] Name, MD Javy [address] [place] [address] Pre-visit Planning (Pre-visit planning - LVM ) Social History Tobacco Use Types Packs/Day Years Used Date Smoking Tobacco: Former Cigarettes 2 14 0 03/24/2001 - 03/24/2015 Passive Smoke Exposure: Never Smokeless Tobacco: Never Alcohol Use Standard Drinks/Week Comments Never 0 (1 standard drink = 0.6 oz pur e alcohol) Depression Answer Date Recorded Patient Health Questionnaire-9 Score 21 05/20/2023 Patient Health Questionnaire-9 Score 21 05/20/2023 Last PHQ-9: Questionnaire Data Not on file 0 05/20/2023 Housing Stability Answer Date Recorded What is [...] Answer Date Recorded Patient Health Questionnaire-2 Score 6 05/20/2023 Comments No Sex and Gender Information Value Date Recorded Sex Assigned at Female 01/21/2022 10:20 AM EDT Legal Sex Female 10:20 AM EDT Gender Identity Choose not to disclose 10:20 AM EDT Sexual Orientation Straight 01/21/2022 10 :20 AM EDT documented as of this encounter Progress Notes * Yadira Monique - 05/21/2024 2:24 PM EST KEITH Sotelo placed outbound call to patient to complete pre-visit planning. No answer at this time. Patient name and were not confirmed. CC left voicemail requesting return call. Direct contact information provided. documented in this encounter Plan of Treatment Not on file documented as of this encounter Visit Diagnoses Not on filedocumented in this encounter Additional Health Concerns Assessment Noted Time PHQ-9 Depression Total Score: 21 024 2:45 PM EST documented as of this encounter Care Teams Division Manager Relationship Specialty Start Date End Date Name, MD Javy [address] [place] [address] PCP - General Family Medicine 11/07/16 documented as of this encounter
--- OUTSIDE RECORDS SUMMARY | 2024-06-08 12:27 | XMS_ITS | Clinical Summary ---
Author Organization [employer] Address [address] [place] [address] 7[address] [place] [address] Care Team Providers Care Aircraft Structural Repairer Name Role Phone Name, Javy FELIX Primary Care Provider [phone] Allergies Active Allergy Reactions Criticality Noted Date Comments Cephalexin Hives High 01/11/2013 Clindamycin Hives 01/29/2023 Latex 01/29/2023 Penicillin G 01/29/2023 Other reaction(s): Maculopapular rash RASH Medications * This document contains information received from the source organization and may not represent a complete record from that organization. naproxen (Naprosyn) 500 MG tablet Take 1 tablet (500 mg) by mouth 2 times daily. 60 tablet 11 10/10/2023 Active Diclofenac Sodium (Voltaren) 1 % gel Use topical BID 100 g 3 10/10/2023 Active hydroCHLOROthia zide 12.5 MG tablet TAKE 1 TABLET BY MOUTH EVERY DAY 90 tablet 12/05/2023 Active Active Problems Problem Noted Date Diagnosed Date Anemia, iron deficiency 01/30/2023 01/31/20 23 Anxiety 01/30/2023 01/30/2023 Gestational diabetes 01/30/2023 01/30/2023 Maternal renal lithiasis, history of 01/30/2023 01/30/2023 Migraine headache 01/30/2023 01/30/2023 Penicillin allergy 01/30/2023 01/30/2023 Previous section 01/30/20232022 Rh D negative blood type 01/30/2023 023 Encounter for pre-employment low back evaluation screening 01/30/2023 01/30/2023 Assessment & Plan (03/26/2023 10:58 AM EST): 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 She has normal gross range of motion, normal strength in her upper and lower extremities. Does not use mobility devices. Normal gait and uses glasses for myopia. Allergic rhinitis 04/11/2022 History of COVID-19 04/11/2022 History of sleeve gastrectomy 04/11/2022 Prediabetes 01/04/2021 Food insecurity 07/28/2018 Chronic bipolar disorder 07/20/2018 Severe obesity 07/17/2017 Eczema 07/14/2012 Dermatophytosis, body 01/01/2012 Severe major depressive disorder 01/01/2012 Assessment & Plan (05/21/2023 9:13 AM EST): PROGRESS NOTE: ID: Juana is a 32 y.o. r straight-identified cis- female with previous documented hx of Depression and Anxiety. History of services including OP Psychotherapy and psychopharmacology; who presents for Anxiety and Depression. During IBH Consult Juana presenting with depressed mood, loss of interests/pleasure , changes in sleep difficulty falling asleep and difficulty staying asleep , change in appetite or weight overeating, psychomotor retardation, thoughts of worthlessness or guilt, fatigue/loss of energy and excessive worry/anxiety, difficulty controlling worry, restless/keyed up/On edge, easily fatigued, difficulty concentrating/Mind going blank , irritability, muscle tension, and sleep disturbance difficulty falling asleep and difficulty staying asleep ; for a period of 18+ mo, for all symptoms in the context of recent removal of her children, DCF case, court involvement PLAN: New/Additional Services needed Off-site services for Behavioral Health Integration Plan External OP therapy referral and OP psychiatry Referral Patient Self Plan Patient to utilize skills provided in intervention , [facility], and Patient to reach out to [facility] as needed Posttraumatic stress disorder 01/01/2012 Resolved Problems Problem Noted Date Diagnosed Date Resolved Date Class 1 obesity 01/30/2023 01/30/2023 03/26/2023 History of bariatric surgery 01/30/2023 01/30/2023 03/26/2023 History of depression 01/30/2023 01/30/20232023 01/30/2023 01/30/2023 03/26/2023 Palpitations 04/11/2022 03/26/2023 Chlamydia contact, treated 02/26/2022 0 03/26/2023 Overview (02/26/2022): Patient was provided with treatment at [facility] yesterday Neck pain 06/09/2018 03/26/2023 Amenorrhea 07/17/2017 03/26/2023 Knee pain 07/17/2017 03/26/2023 Encounters Date Type Department Care Team Description 06/04/2024 Population Health Risk Score [facility] () Department [address] [id number] Provider, Population Health Generic 06/02/2024 Telephone [facility] [address] [place] [id number] NameJavy MD No Show 05/21/2024 Patient Outreach [facility] [address] [place] [phone] Javy Pena MD Pre-visit Planning (Pre-visit planning - LVM ) 03/16/2024 Telephone [facility] [address] [place] [address] Javy Pena MD No Show 03/15/[address] [address] Estefany Jennings [place] Chart Prep from Last 3 Months Immunizations Name Administration Dates Next Due DT (pediatric) 02/26/2006 Influenza injectable quadriv alent IIV4 with preservative 12/07/2018 Influenza injectable quadriv alent preservative free 01/10/2016 Tdap 10/23/2022,12/07/2018,06/17/2016 Social History Tobacco Use Types Packs/Day Years Used Date Smoking Tobacco: Former Cigarettes 2 14 0 03/24/2001 - 03/24/2015 Passive Smoke Exposure: Never Smokeless Tobacco: Never Tobacco Cessation:Counseling Given: Not Answered Alcohol Use Standard Drinks/Week Comments Never 0 [...] Orientation Straight 01/21/2022 10 :20 AM EDT Last Filed Vital Signs Vital Sign Reading Time Taken Comments Blood Pressure 127/72 12/05/2023 3:21 PM EDT Pulse 83 12/05/2023 3:21 PM EDT Temperature 36.4 ??C (97.5 ??F) 10/10/2023 2:21 PM ED T Respiratory Rate 12 12/05/2023 3:21 PM EDT Oxygen Saturation 98% 12/05/2023 3:21 PM EDT Inhaled Oxygen Concentration - - Weight 108 kg (237 lb 6.4 oz) 12/05/2023 3:21 PM EDT Height 162.6 cm (5' 4 ) 12/05/2023 3:21 PM EDT Body Mass Index 40.75 12/05/2023 3:21 PM EDT Plan of Treatment Health Maintenance Due Date Last Done Comments Alcohol/Substance Use Screening 2000 Family Planning (PISQ) 12/09/2003 Hepatitis B Vaccines (1 of 3 - 19+ 3-dose series) 12/09/2007 Cervical Cancer Screening 05/02/2022 HPV/Cotest 05/02/2022 11/10/2019 Pap Smear 05/02/2022 05/02/2021, 11/10/2019 Depression Monitoring (PHQ-9) 11/18/2023 05/20/2023, 05/20/2023 COVID-19 Vaccine ( season) 2023 Influenza Vaccine (#1) 2023 12/07/2018, 2015 SDOH Screening 05/13/2024 05/13/2023 Depression Screening 05/20/2024 05/20/2023, 05/20/19 Diabetes: Hemoglobin A1C 06/23/2024 024, 01/02/2021, 03/31/2020, Additional history exists Tobacco Screening 12/04/2024 12/05/2023 Lipid Panel 06/23/2028 06/24/2023, 01/02/2021 DTaP/Tdap/Td Vaccines (4 - Td or Tdap) 10/23/2032 10/23/2022, 12/07/2018, 06/17/2016 Zoster Vaccines (1 of 2) 2038 RSV Patients and Patients Aged 60 years or older (1 - 1-dose 75+ series) 12/09/2063 HIV Screening Completed 01/07/2020, 06/28/2019 Hepatitis C Screening Completed 01/07/2020, 020 HIB Vaccines Aged Out No longer eligi ble based on patient's age to complete this topic HPV Vaccines Aged Out No longer eligi ble based on patient's age to complete this topic Hepatitis A Vaccines Aged Out No long er eligible based on patient's age to complete this topic IPV Vaccines Aged Out No longer eligi ble based on patient's age to complete this topic Meningococcal Vaccine Aged Out No tom mega eligible based on patient's age to complete this topic Pneumococcal Vaccine: Pediatrics (0 to 5 Years) and At-Risk Patients (6 to 49) Years) Aged Out No longer eligible based on patient's age to complete this topic RSV under 20 months Aged Out No longe r eligible based on patient's age to complete this topic Rotavirus Vaccines Aged Out No longer eligible based on patient's age to complete this topic Procedures Procedure Name Priority Date/Time Associated Diagnosis Comments HEMOGLOBIN A1C Routine 06/24/2023 10:07 AM EDT Depression, unspecified depression type History of gestational diabetes Screening for cholesterol level LIPID PANEL, STANDARD Routine 06/24/2023 10:07 AM EDT Depression, unspecified depression type History of gestational diabetes Screening for cholesterol level PAP/HPV Routine 05/02/2021 [facility] HISTORICAL HEPATITIS C ANTIBODY Routine 01/07/2020 1:45 PM EDT PAP/HPV Routine 11/10/2019 from Last 3 Months or Most Recently Relevant to Health Maintenance Results * Hemoglobin A1c (06/24/2023 10:07 AM EDT) Hemoglobin A1c 4.8 <6.0 % [facility] Comment:Hemoglobin A1C Refer ence Range Adults: 4.8 - 6.0 % Non diabetic: < 6.0 % Goal: < 7.0 %Additional Action Suggested: > 8.0 %Note: Hemoglobin A1c results are invalid for patients with abnormal amounts of HbF. Blood transfusions may impact the HbA1c concentration in the patient sample. Estimated Average Glucose 91 mg/dL [facility] Comment:eAG = Estimated ave rage glucose which is %A1C expressed asaverage glucose, using the formula of the C0P-UnnlorsJgebyhj Glucose study (ADAG), Diabetes Care, Vol.31,#8,Oct. 2007 Blood Venous blood specimen / Unknown 06/24/2023 10:07 AM EDT 06/24/2023 12:47 PM EDT us Javy Pena MD LAB BLOOD ORDERABLES Final Resul t [facility] [address] [place] [address] [phone] * (ABNORMAL) Lipid Panel, Standard (06/24/2023 10:07 AM EDT) Triglycerides 158(H) <150 mg/dL [facility] Comment:Desirable Triglyceri de: less than 150 mg/dLBorderline High Triglyceride 150-199 mg/dLHigh Triglyceride: 200-499 mg/dLVery High Triglyceride: greater than or equal to 5OO mg/dL Cholesterol 228(H) <200 mg/dL [facility] Comment:Desirable Cholestero l: less than 200 mg/dLBorderline High Cholesterol: 200-239 mg/dLHigh Cholesterol: greater than 239 mg/dL LDL Cholesterol Calculated 138(H) <100 mg/dL [facility] Comment:Desirable LDL: less than 100 mg/dLNear Optimal/Above Optimal LDL: 110- 129 mg/dLBorderline High LDL: 130-159 mg/dLHigh LDL: 160-189 mg/dLVery High LDL: greater than or equal to 190 mg/dL HDL Cholesterol 59 >40 mg/dL [facility] Comment:Desirable HDL: great er than 40 mg/dL Note: This HDL assay may give artificially low results in patients with liver disease. Blood Venous blood specimen / Unknown 06/24/2023 10:07 AM EDT 06/24/2023 12:47 PM EDT us Javy Pena MD LAB BLOOD ORDERABLES Final Resul t Performing Organization Address City/[facility]/ZIP Co de Phone Number [facility] [address] [place] [address] [phone] * Hm Pap Smear (05/02/2021) Only the most recent of2 resultswithin the time period is included. Pap Negative for intraephithelial lesion or malignancy Negative for intraephithelial lesion or malignancy, Other us Historical Provider HEALTH MAINTENANCE Final Result * Hepatitis C Antibody (01/07/2020 1:45 PM EDT) Pathologist [facility] Hepatitis C Antibody Nonreactive Nonreactive [facility] Comment: Antibodies to HCV not detected; does not exclude early acute HCV infection. HIV AB/AG Nonreactive Nonreactive [facility] Comment: HIV-1 p24 Ag and/or HIV-1/HIV-2 Ab not detected. ?? A test result that is nonreactive does not exclude the possibility of exposure to or infection with HIV-1 and/or HIV-2. Nonreactive results in this assay for individuals with prior exposure to HIV-1 and/or HIV-2 may be due to antigen and antibody levels that are below the limit of detection of this assay. ?? The [employer] Propeller Layout Worker HIV Ag/Ab Combo assay result and supplemental assay results should be interpreted in conjunction with the patient's clinical presentation, history and other laboratory results. ??If the results are inconsistent with clinical evidence, additional testing is suggested to confirm the result. 01/07/2020 1:45 PM EDT us Janell Lopez MD HISTORICAL/NON ORDERABLE LABS Final Result [facility] [address] from Last 3 Months or Most Recently Relevant to Health Maintenance Insurance C3 Care Teams Aircraft Structural Repairer Relationship Specialty Start Date End Date Name, MD Javy [address] [place] [id number] PCP - General Family Medicine 11/07/16
--- OUTSIDE RECORDS SUMMARY | 2024-06-08 12:27 | XMS_ITS | Encounter Summary ---
Author Organization [employer] Address [address] [place] [address] 7 [place] [address] Care Team Providers Care Supervisor Long Goods Name Role Phone Name, Javy FELIX Primary Care Provider [phone] Reason for Visit * Reason Onset Date Comments No Show 06/02/2024 Encounter Details Date Type Department Care Team ([facility] st Contact Info) Description 06/02/2024 Telephone [facility] [address] [place] [address] Name, MD Javy [address] [place] [address] No Show Social History Tobacco Use Types Packs/Day Years [...] encounter Miscellaneous Notes * Telephone Encounter - Catherine Nunez - 06/02/2024 3:08 PM EDT Patient no show to PHYSICAL appointment on 06/02/24. documented in this encounter Plan of Treatment Not on file documented as of this encounter Visit Diagnoses Not on filedocumented in this encounter Additional Health Concerns Assessment Noted Time PHQ-9 Depression Total Score: 21 024 2:45 PM EST documented as of this encounter Care Teams Supervisor Long Goods Relationship Specialty Start Date End Date Name, MD Javy [address] [place] [address] PCP - General Family Medicine 11/07/16 documented as of this encounter
--- OUTSIDE RECORDS SUMMARY | 2024-06-08 12:27 | XMS_ITS | Encounter Summary ---
Author Organization [employer] Address [address] [facility] [address]t [place] [address] Care Team Providers Care Margarine Churn Operator Name Role Phone Name, Javy FELIX Primary Care Provider [phone] Encounter Details Date Type Department Care Team ([facility] st Contact Info) Description 06/04/2024 Population Health Risk Score [facility] (C[facility]) Department [address] [address] Provider, Population Health Generic Social History Tobacco Use Types Packs/Day Years [...] AM EDT documented as of this encounter Plan of Treatment Not on file documented as of this encounter Visit Diagnoses Not on filedocumented in this encounter Additional Health Concerns Assessment Noted Time PHQ-9 Depression Total Score: 21 024 2:45 PM EST documented as of this encounter Care Teams Margarine Churn Operator Relationship Specialty Start Date End Date Name, MD Javy [address] [place] [address] PCP - General Family Medicine 11/07/16 documented as of this encounter
== END 2024-06-08 11:46 | disposition home or self-care (01) ==
LOC: HO.HBS 10:34
PROVIDERS: PCP Internal Medicine Geriatric Medicine; Visit Provider Physician Assistant Surgical
DX: E66.812 Obesity, class 2 (principal); Z68.38 Body mass index [BMI] 38.0-38.9, adult; Z90.3 Acquired absence of stomach [part of]; Z98.84 Bariatric surgery status
CPT/HCPCS: 99214

== ENCOUNTER → 2024-06-08 10:34 | Outpatient (BNVA) | payer MEDICAID, SELFPAY | PROVIDERS: PCP Internal Medicine Geriatric Medicine; Visit Provider Physician Assistant Surgical | DX: Z90.3 Acquired absence of stomach [part of] (principal) | CPT/HCPCS: 99212 ==

== ENCOUNTER 2024-06-18 14:47 | Outpatient (REF) | payer MEDICAID, SELFPAY ==
[2024-06-18 17:49] LABS: HCG Quantitative < 2 mIU/mL
== END 2024-06-18 14:48 | disposition home or self-care (01) ==
LOC: HO.HHCL 14:47
PROVIDERS: Visit Provider Internal Medicine Geriatric Medicine
DX: Z33.1 Pregnant state, incidental (principal)
CPT/HCPCS: 36415; 84702

== ENCOUNTER 2024-08-10 11:16 | Outpatient (REF) | payer MEDICAID, SELFPAY ==
--- OUTSIDE RECORDS SUMMARY | 2024-08-10 12:32 | XMS_ITS | Encounter Summary ---
Author Organization [employer] Address [address] [place] [address] [address] [place] [address] Care Team Providers Care Digital Experience Manager Name Role Phone Name, Javy FELIX Primary Care Provider [phone] Reason for Visit * Reason Onset Date Comments Letter for School/Work 03/05/2023 Encounter Details Date Type Department Care Team ([facility] Contact Info) Description 03/05/2023 Telephone [facility] [address] [place] [address] Name, MD Javy [address] [place] [address] Letter for School/Work Social History Tobacco Use [...] Sex Female 10:20 AM EDT Gender Identity Female 08/10/2024 9:19 AM EDT Sexual Orientation Straight 01/21/2022 10 :20 AM EDT documented as of this encounter Miscellaneous Notes * Telephone Encounter - Erin Enrique - 03/05/2023 12:59 PM EST Tc from pt requesting a letter stating she can work. Any questions, please contact pt at [phone] documented in this encounter Plan of Treatment Not on file documented as of this encounter Visit Diagnoses Not on filedocumented in this encounter Care Teams Digital Experience Manager Relationship Specialty Start Date End Date Name, MD Javy [address] [place] [address] PCP - General Family Medicine 11/07/16 documented as of this encounter
--- OUTSIDE RECORDS SUMMARY | 2024-08-10 12:32 | XMS_ITS | Encounter Summary ---
Author Organization [employer] Address [address] [place] [address] [address]t [place] [address] Care Team Providers Care Supplier Relationship Director Name Role Phone Name, Javy FELIX Primary Care Provider [phone] Reason for Visit * Reason Onset Date Comments Lab Orders 08/10/2024 Pt requesting TB test for work Encounter Details Date Type Department Care Team ([facility] st Contact Info) Description 08/10/2024 Telephone [facility] [address] [place] [address] Name, MD Javy [address] [place] [address] Lab Orders (Pt requesting TB test for work ) Social History Tobacco Use Types Packs/Day Years Used Date Smoking Tobacco: Former Cigarettes 2 14 0 03/24/2001 - 03/24/2015 Passive Smoke Exposure: Never Smokeless Tobacco: Never Alcohol Use Standard Drinks/Week Comments Never 0 (1 standard drink = 0.6 oz pur e alcohol) Depression Answer Date Recorded Patient Health Questionnaire-9 Score 8 08/10/2024 Patient Health Questionnaire-9 Score 8 08/10/2024 Last PHQ-9: Questionnaire Data Not on file 0 08/10/2024 Housing Stability Answer Date Recorded What is your housing situation today? I have larry dickens 08/10/[address] you li ve. Do you have problems with any of the following? None of the above 08/10/2024 Food Insecurity Answer Date Recorded Within the past 12 months, y ou worried that your food would run out before you got money to buy more: Never True 08/10/2024 Within the past 12 months,th e food you bought just didn't last and you didn't have enough money to get more: Never True Transportation Answer Date Recorded In the past 12 months, has l ack of transportation kept you from medical appts, meetings, work or from getting things needed for daily living? No 08/10/2024 Utilities Answer Date Recorded In the past 12 months, has t he electric, gas, oil or water company threatened to shut off services in your home? No 08/10/2024 Depression Answer Date Recorded Patient Health Questionnaire-2 Score 1 08/10/2024 Internet Access Answer Date Recorded Internet Access Q1 Yes 08/10/2024 Internet Access Q2 Not on file 08/10/2024 Comments No Sex and Gender Information Value Date Recorded Sex Assigned at Female 01/21/2022 10:20 AM EDT Legal Sex Female 10:20 AM EDT Gender Identity Female 08/10/2024 9:19 AM EDT Sexual Orientation Straight 01/21/2022 10 :20 AM EDT documented as of this encounter Miscellaneous Notes * Telephone Encounter - Mandi Durand RN - 08/10/2024 9:26 AM EDT Tc to pt to let them know that TB test has been ordered and advised pt to go to the lab to have it completed at their convenience. Pt verbalized understanding and no further questions or concerns at this time. * Telephone Encounter - Joan Cam - 08/10/2024 9:10 AM EDT Pt requesting TB test for work documented in this encounter Plan of Treatment Scheduled Orders Name Type Priority Associated Diagnoses Orde r Schedule T-SPOT??.TB Lab Routine Screening for tuberculosis Expected: 08/10/2024 (Approximate), Expires: 08/10/2025 documented as of this encounter Visit Diagnoses Diagnosis Screening for tuberculosis Screening examination for pulmonary tuberculosis documented in this encounter Additional Health Concerns Assessment Noted Time PHQ-9 Depression Total Score: 8 08/11/19 10:54 AM EDT documented as of this encounter Care Teams Supplier Relationship Director Relationship Specialty Start Date End Date Name, MD Javy [address] [place] [address] PCP - General Family Medicine 11/07/16 documented as of this encounter
--- OUTSIDE RECORDS SUMMARY | 2024-08-10 12:32 | XMS_ITS | Encounter Summary ---
Author Organization [employer] Address [address] [facility] [address]t [place] [address] Care Team Providers Care Autism Motor Specialist Name Role Phone Name, Javy FELIX Primary Care Provider [phone] Encounter Details Date Type Department Care Team (Latest Contact Info) Description 08/10/2024 Travel Social History Tobacco Use Types Packs/Day Years [...] AM EDT documented as of this encounter Functional Status * Over the past 2 weeks, how often have you been bothered by any of the following problems? Question Answer Date of Assessment Author Patient Health Questionnaire-2 Score 1 08/10/2024 10:54 AM EDT Jigna Arellano MA * Little interest or pleasure in doing things Answer Date of Assessment Author Not at all 08/10/2024 10:54 AM EDT Jigna Valenzuela MA * Feeling down, depressed, or hopeless Answer Date of Assessment Author Several days 08/10/2024 10:54 AM EDT Jigna Valenzuela MA * Trouble falling or staying asleep, or sleeping too much Answer Date of Assessment Author More than half the days 08/10/2024 10:54 AM EDT Jigna Riley MA * Feeling tired or having little energy Answer Date of Assessment Author More than half the days 08/10/2024 10:54 AM EDT Jigna Riley MA * Poor appetite or overeating Answer Date of Assessment Author Several days 08/10/2024 10:54 AM EDT Jigna Valenzuela MA * Feeling bad about yourself - or that you are a failure or have let yourself or your family down Answer Date of Assessment Author Not at all 08/10/2024 10:54 AM EDT Jigna Valenzuela MA * Trouble concentrating on things, such as reading the newspaper or watching television Answer Date of Assessment Author More than half the days 08/10/2024 10:54 AM EDJigna Rojas MA * Moving or speaking so slowly that other people could have noticed? Or the opposite - being so fidgety or restless that you have been moving around a lot more than usual. Answer Date of Assessment Author Not at all 08/10/2024 10:54 AM EDT Jigna Valenzuela MA * Thoughts that you would be better off or hurting yourself in some way Answer Date of Assessment Author Not at all 08/10/2024 10:54 AM EDT Jigna Valenzuela MA * Patient Health Questionnaire-9 Score Answer Date of Assessment Author 8 08/10/2024 10:54 AM EDT Jigna Valenzuela MA * How difficult have these problems made it for you to do your work, take care of things at home, or get along with other people? Answer Date of Assessment Author Not difficult at all 08/10/2024 10:54 AM EDT Jigna Reed MA * Over the last 2 weeks, how often have you been bothered by any of the following problems? Question Answer Date of Assessment Author Feeling nervous, anxious, or on edge 1 08/10/2024 10:54 AM Jigna Ramirez MA Not being able to stop or control worrying 1 08/10/2024 10:54 AM Jigna Ramirez MA Worrying too much about different things 1 08/10/2024 10:54 AM Jigna Ramirez MA Trouble relaxing 2 08/10/2024 10:54 AM Jigna Ramirez MA Being so restless that it is hard to sit still 1 08/10/2024 10:54 AM Jigna Ramirez MA Becoming easily annoyed or irritable 1 08/10/2024 10:54 AM Jigna Ramirez MA Feeling afraid as if something awful might happen 1 08/10/2024 10:54 AM EDT Jigna Villar MA JEFFERY-7 Total Score 8 08/10/2024 10:54 AM EDT Jigna Riley MA documented as of this encounter Plan of Treatment Not on file documented as of this encounter Visit Diagnoses Not on filedocumented in this encounter Additional Health Concerns Assessment Noted Time PHQ-9 Depression Total Score: 8 08/11/19 25 10:54 AM EDT documented as of this encounter Care Teams Autism Motor Specialist Relationship Specialty Start Date End Date Name, MD Javy [address] [place] [address] PCP - General Family Medicine 11/07/16 documented as of this encounter
--- OUTSIDE RECORDS SUMMARY | 2024-08-10 12:32 | XMS_ITS | Encounter Summary ---
Author Organization [employer] Address [address] [place] [address] [address] [place] [address] Care Team Providers Care Cone Runner Name Role Phone Name, Javy FELIX Primary Care Provider [phone] Reason for Referral * Consultation (Routine) - Pending Review Specialty Diagnoses / Procedures Referred By Brittani leon Referred To Contact Optometry Diagnoses Blurry vision Paris Huirton MD [address] [place] [address] Phone: tel: fax: Referral ID Status Reason Start Date Expiration Date Visits Requested Visits Authorized [id number] Pending Review Specialty Services Required 08/10/2024 08/10/2025 1 1 Reason for Visit * Reason Comments Employment Physical Encounter Details Date Type Department Care Team (Late st Contact Info) Description 08/10/2024 10:30 AM EDT Office Visit [facility] MED[facility]INE [address] [place], [place] [phone] Paris Huitron MD [address] [place], [place] [phone] Blurry vision (Primary Dx); Dietary counseling; Exercise counseling; Class 3 severe obesity without serious comorbidity with body mass index (BMI) of 40.0 to 44.9 in adult, unspecified obesity type; Severe major depressive disorder (CMS/HCC) Social History Tobacco Use Types Packs/Day Years [...] AM EDT documented as of this encounter Last Filed Vital Signs Vital Sign Reading Time Taken Comments Blood Pressure 122/73 08/10/2024 10:34 AM EDT Pulse 71 08/10/2024 10:34 AM EDT Temperature 36.4 ??C (97.6 ??F) 08/10/2024 10:34 AM E DT Respiratory Rate 20 08/10/2024 10:34 AM EDT Oxygen Saturation 99% 08/10/2024 10:34 AM EDT Inhaled Oxygen Concentration - - Weight 105 kg (231 lb) 08/10/2024 10:34 AM EDT Height 162.6 cm (5' 4 ) 08/10/2024 10:34 AM EDT Body Mass Index 39.65 08/10/2024 10:34 AM EDT documented in this encounter Functional Status * Over the [...] 10:54 AM EDT Jigna Riley MA * Moving or speaking so slowly [...] or on edge 1 08/10/2024 10:54 AM EDJigna Rojas MA Not being able to stop or control worrying 1 08/10/2024 10:54 AM RYLEET Jigna Riley MA Worrying too much about different things 1 08/10/2024 10:54 AM EDT Jigna Riley MA Trouble relaxing 2 08/10/2024 10:54 AM RYLEET Jigna iRley MA Being so restless that it is hard to sit still 1 08/10/2024 10:54 AM Jigna Ramirez MA Becoming easily annoyed or irritable 1 08/10/2024 10:54 AM RYLEET Jigna Riley MA Feeling afraid as if something awful might happen 1 08/10/2024 10:54 AM EDT Jigna Villar MA JEFFERY-7 Total Score 8 08/10/2024 10:54 AM Jigna Ramirez MA documented as of this encounter Plan of Treatment Scheduled Referrals Name Type Priority Associated Diagnoses Orde r Schedule Referral to Optometry Outpatient Referral Routine Blurry vision Expected: 08/10/2024 (Approximate), Expires: 08/10/2025 documented as of this encounter Visit Diagnoses Diagnosis Blurry vision- Primary Other specified visual disturbances Dietary counseling Dietary surveillance and counseling Exercise counseling Class 3 severe obesity without serious comorbidity with body mass index (BMI) of 40.0 to 44.9 in adult, unspecified obesity type Severe major depressive disorder (CMS/HCC) documented in this encounter Additional Health Concerns Assessment Noted Time PHQ-9 Depression Total Score: 8 08/11/19 25 10:54 AM EDT documented as of this encounter Care Teams Cone Runner Relationship Specialty Start Date End Date Name, MD Javy [address] [place] [phone] PCP - General Family Medicine 11/07/16 documented as of this encounter
--- OUTSIDE RECORDS SUMMARY | 2024-08-10 12:32 | XMS_ITS | Clinical Summary ---
Author Organization [employer] Address [address] [facility] 7t [place] [address] Care Team Providers Care Radiopharmacist Name Role Phone Name, Javy FELIX Primary Care Provider [phone] Allergies Active Allergy Reactions Criticality Noted Date [...] mouth 2 times daily. 60 tablet 11 10/10/19 24 025 Active Diclofenac Sodium (Voltaren) 1 % gel Use topical BID 100 g 3 10/10/19 24 Active Magnesium 400 MG capsule Take 400 mg by mouth Once per day. To prevent migraines 90 capsule 08/11/19 25 Active 28-0.8 MG tablet Take 1 tablet by mouth Once per day. 90 tablet 3 08/11/19 25 026 Active propranolol (Inderal) 20 MG tablet Take 1 tablet (20 mg) by mouth if needed at bedtime (migraine prevention). 90 tablet 3 08/11/19 25 026 Active hydroCHLOROthi azide 12.5 MG tablet TAKE 1 TABLET BY MOUTH EVERY DAY 90 tablet 12/05/19 24 025 Discontinued(Th erapy completed) 28-0.8 MG tablet Take 1 tablet by mouth Once per day. 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 She has normal gross range of [...] hx of Depression and Anxiety. History of MH services including OP Psychotherapy and psychopharmacology; who [...] intervention , Patient to reach out to [facility] team as needed, and Patient to reach out to [facility] as needed Posttraumatic stress disorder 01/01/2012 Resolved Problems Problem Noted Date Diagnosed Date Resolved Date Class 1 obesity 01/30/2023 01/30/2023 03/26/2023 History of bariatric surgery 01/30/2023 01/30/2023 03/26/2023 History of depression 01/30/2023 01/30/20232023 01/30/2023 01/30/2023 03/26/2023 Palpitations 04/11/2022 03/26/2023 Chlamydia contact, treated 02/26/2022 0 03/26/2023 Overview (02/26/2022): Patient was provided with treatment at [facility] yesterday Neck pain 06/09/2018 03/26/2023 Amenorrhea 07/17/2017 03/26/2023 Knee pain 07/17/2017 03/26/2023 Encounters Date Type Department Care Team Description 08/10/2024 10:30 AM EDT Office Visit [address] [address] Paris Huitron MD Blurry vision (Primary Dx); Dietary counseling; Exercise counseling; Class 3 severe obesity without serious comorbidity with body mass index (BMI) of 40.0 to 44.9 in adult, unspecified obesity type; Severe major depressive disorder (CMS/HCC) 08/10/2024 Travel 08/10/[address] [facility] MEDICINE [address] [place] [address] Javy Pena MD Lab Orders (Pt requesting TB test for work ) 06/21/2024 Telephone [facility] [address] [place] [address] Javy Pena MD 06/18/2024 Telephone [facility] [place] [address] Javy Pena MD Lab Orders 06/04/2024 Population Health Risk Score [facility] () Department [address] [place] [phone] Provider, Population Health Generic 06/02/[address] [facility] [place] [address] Javy Pena MD No Show 05/21/2024 Patient Outreach [facility] [address] [place] [address] NameJavy MD Pre-visit Planning (Pre-visit planning - LVM ) from Last 3 Months Immunizations Immunization Administration Dates Next Due DT (pediatric) 02/26/2006 [...] Mass Index 39.65 08/10/2024 10:34 AM EDT Plan of Treatment Health Maintenance Due Date Last Done Comments Disability Screening 1988 Alcohol/Substance Use Screening 2000 Family Planning (PISQ) 12/09/2003 Hepatitis B Vaccines (1 of 3 - 19+ 3-dose series) 12/09/2007 Cervical Cancer Screening 05/02/2022 HPV/Cotest 05/02/2022 11/10/2019 Pap Smear 05/02/2022 05/02/2021, 11/10/2019 COVID-19 Vaccine ( season) 2023 Influenza Vaccine (#1) 2023 12/07/2018, 2015 Diabetes: Hemoglobin A1C 06/23/2024 024, 01/02/2021, 03/31/2020, Additional history exists Depression Screening 08/10/2025 08/10/2024, 08/11/19 25 SDOH Screening 08/10/2025 08/10/2024 Tobacco Screening 08/10/2025 08/10/2024 Lipid Panel 06/23/2028 06/24/2023, 01/02/2021 DTaP/Tdap/Td Vaccines [...] patient's age to complete this topic Meningococcal B Vaccine Aged Out No l onger eligible based on patient's age to complete [...] Procedure Name Priority Date/Time Associated Diagnosis Comments HCG, TOTAL, QN Routine 06/18/2024 3:42 PM EDT test positive for incidental HEMOGLOBIN A1C Routine 06/24/2023 10:07 AM EDT Depression, unspecified depression type History of gestational diabetes Screening for cholesterol level LIPID PANEL, STANDARD Routine 06/24/2023 10:07 AM EDT Depression, unspecified depression type History of gestational diabetes Screening for cholesterol level PAP/HPV Routine 05/02/2021 SYLVIA HISTORICAL HEPATITIS C ANTIBODY Routine 01/07/2020 1:45 PM EDT PAP/HPV Routine 11/10/2019 from Last 3 Months or Most Recently Relevant to Health Maintenance Results * hCG, Total, Quantitative (06/18/2024 3:42 PM EDT) HCG Quantitative <2 mIU/mL [facility] Comment:Weeks post LMP Appro ximate hCG(Last Menstrual Period) Range (mIU/ml)3 - 4 weeks 9 - 1304 - 5 weeks 75 - 2,6005 - 6 weeks 850 - 20,8006 - 7 weeks 4000 - 100,2007 - 12 weeks 11,500 - 289,22521 - 16 weeks 18,300 - 137,42382 - 29 weeks (2nd trimester) 1,400 - 53,29684 - 41 weeks (3rd trimester) 940 - 60,000The Yoder B- hCG assay is used for the early detection ofpregnancy; it cannot be used to diagnose any conditionunrelated to . If a B-hCG level is not supportedby the clinical evidence, results should be confirmed by analternative method (qualitative urine hCG, for example). Blood Venous blood specimen / Unknown 06/18/2024 3:42 PM EDT 06/18/2024 4:28 PM EDT us Javy Pena MD LAB BLOOD ORDERABLES Final Resul t [facility] [address] [place], [place] [phone] * Hemoglobin A1c (06/24/2023 10:07 AM EDT) Hemoglobin A1c 4.8 <6.0 % [facility] Comment:Hemoglobin A1C Refer ence Range Adults: 4.8 - 6.0 % Non diabetic: < 6.0 % Goal: < 7.0 %Additional Action Suggested: > 8.0 %Note: Hemoglobin A1c results are invalid for patients with abnormal amounts of HbF. Blood transfusions may impact the HbA1c concentration in the patient sample. Estimated Average Glucose 91 mg/dL [facility] Comment:eAG = Estimated ave rage glucose which is %A1C expressed asaverage glucose, using the formula of the P2L-EggqwffMjgofax Glucose study (ADAG), Diabetes Care, Vol.31,#8,2007 Blood Venous blood specimen / Unknown 06/24/2023 10:07 AM EDT 06/24/2023 12:47 PM EDT us Javy Name LAB BLOOD ORDERABLES Final Resul t [facility] [address] [place] [phone] * (ABNORMAL) Lipid Panel, Standard (06/24/2023 10:07 AM EDT) Triglycerides 158(H) <150 mg/dL [facility] Comment:Desirable Triglyceri de: less than 150 mg/dLBorderline High Triglyceride 150-199 mg/dLHigh Triglyceride: 200-499 mg/dLVery High Triglyceride: greater than or equal to 5OO mg/dL Cholesterol 228(H) <200 mg/dL [facility] Comment:Desirable Cholestero l: less than 200 mg/dLBorderline High Cholesterol: 200-239 mg/dLHigh Cholesterol: greater than 239 mg/dL LDL Cholesterol Calculated 138(H) <100 mg/dL [facility] Comment:Desirable LDL: less than 100 mg/dLNear Optimal/Above Optimal LDL: 110- 129 mg/dLBorderline High LDL: 130-159 mg/dLHigh LDL: 160-189 mg/dLVery High LDL: greater than or equal to 190 mg/dL HDL Cholesterol 59 >40 mg/dL [facility] Comment:Desirable HDL: great er than 40 mg/dL Note: This HDL assay may give artificially low results in patients with liver disease. Blood Venous blood specimen / Unknown 06/24/2023 10:07 AM EDT 06/24/2023 12:47 PM EDT Javy Pena MD LAB BLOOD ORDERABLES Final Resul t [facility] [address] [place] [phone] [phone] * Hm Pap Smear (05/02/2021) Only the most recent of2 resultswithin the time period is included. Pap Negative for intraephithelial lesion or malignancy Negative for intraephithelial lesion or malignancy, Other Historical Provider HEALTH MAINTENANCE Final Result * Hepatitis C Antibody (01/07/2020 1:45 PM EDT) Hepatitis C Antibody Nonreactive Nonreactive [facility] Comment: Antibodies to HCV not detected; does not exclude early acute HCV infection. HIV AB/AG Nonreactive Nonreactive [facility] Comment: HIV-1 p24 Ag and/or [...] detection of this assay. ?? The Yoder Digital Cartographer HIV Ag/Ab Combo assay result and supplemental assay results should be interpreted in conjunction with the patient's clinical presentation, history and other laboratory results. ??If the results are inconsistent with clinical evidence, additional testing is suggested to confirm the result. 01/07/2020 1:45 PM EDT Janell Lopez MD HISTORICAL/NON ORDERABLE LABS Final Result Performing Organization Address City/[facility]/ZIP Co de Phone Number [facility] [address] [place] [address], from Last 3 Months or Most Recently Relevant to Health Maintenance Insurance [facility] C3 Care Teams Radiopharmacist Relationship Specialty Start Date End Date Name, MD Javy [address] [place] [phone] PCP - General Family Medicine 11/07/16
[2024-08-12 21:48] LABS: TS Negative Control Passed; TS Panel A 0; TS Panel B 0; TS Positive Control Passed; TSpotTB Negative (Negative)
== END 2024-08-10 11:17 | disposition home or self-care (01) ==
LOC: HO.HHCL 11:16
PROVIDERS: Visit Provider Internal Medicine Geriatric Medicine
DX: Z11.1 Encounter for screening for respiratory tuberculosis (principal)
CPT/HCPCS: 36415; 86481

== ENCOUNTER 2024-08-17 07:59 | Outpatient (REF) | payer MEDICAID, SELFPAY ==
--- OUTSIDE RECORDS SUMMARY | 2024-08-17 08:02 | XMS_ITS | Encounter Summary ---
Author Organization [employer] Address [address] [place] [address] [address] [place] [address] Care Team Providers Care Computer Peripheral Equipment Operator Name Role Phone Name, Javy FELIX Primary Care Provider [phone] Reason for Visit * Reason Onset Date Comments Letter for School/Work 03/05/2023 Encounter Details Date Type Department Care Team ([facility] Contact Info) Description 03/05/2023 Telephone [facility] MEDICINE [address] [place] [address] Name, MD Javy [address] [place] [address] Letter for School/Work Social History Tobacco Use [...] work. Any questions, please contact pt at [phone] documented in this encounter Plan of Treatment Not on file documented as of this encounter Visit Diagnoses Not on filedocumented in this encounter Care Teams Computer Peripheral Equipment Operator Relationship Specialty Start Date End Date Name, MD Javy [address] [place] [address] PCP - General Family Medicine 11/07/16 documented as of this encounter
[2024-08-17 08:15] LABS: MANUAL DIFF FLAG NO
[2024-08-17 09:10] LABS: Basophils Absolute Auto 0.1 X10*3/uL (0.0-0.2); Basophils Percent Auto 0.6 % (0-2); Eosinophils Absolute Auto 0.2 X10*3/uL (0.0-0.4); Eosinophils Percent Auto 2.3 % (0-4); Hematocrit 35.6 % (37.0-47.0); Hemoglobin 11.4 g/dl (12.0-16.0); Imm Gran Abs Auto 0.03 X10*3/uL (0.00-0.03); Imm Gran Pct Auto 0.4 % (0.0-0.4); Lymphocytes Absolute Auto 2.1 X10*3/uL (1.2-4.9); Lymphocytes Percent Auto 26.4 % (20-40); Mean Corpuscular Hemoglobin 28.4 pg (27.0-33.0); Mean Corpuscular Volume 88.6 fL (80.0-98.0); Monocytes Absolute Auto 0.5 X10*3/uL (0.1-1.2); Monocytes Percent Auto 6.6 % (2-11); Neutrophils Absolute Auto 4.9 x10*3/uL (2.0-8.3); Neutrophils Percent Auto 63.7 % (45-73); Platelet Count 294 X10*3/uL (160-400); Red Blood Count 4.02 X10*6/uL (4.20-5.50); Red Cell Distribution Width 13.5 % (11.0-16.0); White Blood Count 7.8 X10*3/uL (4.8-10.8)
[2024-08-17 09:22] LABS: Estimated Average Glucose 105 mg/dL; Hemoglobin A1c % 5.3 % (<6.0)
[2024-08-17 09:44] LABS: Anion Gap 10 (12-20)
[2024-08-17 09:48] LABS: Alanine Aminotransferase 12 U/L (0-31); Alkaline Phosphatase 64 U/L (39-117); Aspartate Amino Transferase 19 U/L (5-31); Bilirubin Total 0.5 mg/dL (0.0-1.0); Blood Urea Nitrogen 11 mg/dL (9-16); C Reactive Protein 1.98 mg/dL (< or = 0.50); Calcium 8.8 mg/dL (8.4-10.2); Carbon Dioxide 24 mmol/L (22-29); Chloride 110 mmol/L (96-108); Cholesterol 199 mg/dL (<200); Estimated Glomerular Filt Rate > 60; Glucose Random 86 mg/dL (60-115); HDL Cholesterol 44 mg/dL (>40); Iron 95 mcg/dL (30-160); LDL Cholesterol Calculated 126 mg/dL (<100); Percent Iron Saturation 31 % (15-50); Potassium 3.5 mmol/L (3.3-5.1); Sodium 140 mmol/L (135-145); Total Iron Binding Capacity 308 mcg/dL (228-428); Total Protein 7.1 g/dL (6.5-8.0); Triglycerides 146 mg/dL (<150); Unsaturated Iron Binding 213 ug/dL
[2024-08-17 10:13] LABS: Ferritin 37 ng/mL (10-122); Folate 11.7 ng/mL (> or = 4.0); TSH reflex Free T4 1.71 uIU/mL (0.32-4.0); Vitamin B12 345 pg/mL (200-900); Vitamin D 25-OH Total 20.1 ng/mL (>30)
[2024-08-17 11:14] LABS: Insulin 8 uU/mL (2-29)
[2024-08-20 05:03] LABS: Zinc 62 mcg/dL (60-130)
[2024-08-20 06:19] LABS: Vitamin B1 9 nmol/L (8-30)
[2024-08-20 11:54] LABS: Vitamin A 46 mcg/dL (38-98)
== END 2024-08-17 08:00 | disposition home or self-care (01) ==
LOC: HO.LAB 07:59
PROVIDERS: PCP Internal Medicine Geriatric Medicine; Visit Provider Physician Assistant Surgical
DX: K76.0 Fatty (change of) liver, not elsewhere classified (principal); E53.8 Deficiency of other specified B group vitamins; E55.9 Vitamin D deficiency, unspecified; F32.A Depression, unspecified; E78.5 Hyperlipidemia, unspecified; Z90.3 Acquired absence of stomach [part of]
CPT/HCPCS: 36415; 80053; 80061; 82306; 82607; 82728; 82746; 83036; 83525; 83540; 84425; 84443; 84590; 84630; 85025; 86140

== ENCOUNTER 2024-09-18 22:33 | Emergency (ER) | payer MEDICAID, SELFPAY ==
[2024-09-18 22:42] VITALS: BP 109/64; PULSE 99; RESP 18; TEMP 36.8; O2SAT 98; BMI 36.3
--- NOTE | 2024-09-18 23:22 | MHC.EDTECH ---
Patient brought into triage area,labs drawn and sent to lab. Patient was unable to give a urine sample at this time.
[2024-09-18 23:32] LABS: MANUAL DIFF FLAG NO
[2024-09-18 23:35] LABS: Basophils Absolute Auto 0.1 X10*3/uL (0.0-0.2); Basophils Percent Auto 0.7 % (0-2); Eosinophils Absolute Auto 0.1 X10*3/uL (0.0-0.4); Eosinophils Percent Auto 1.5 % (0-4); Hematocrit 33.1 % (37.0-47.0); Hemoglobin 10.7 g/dl (12.0-16.0); Imm Gran Abs Auto 0.03 X10*3/uL (0.00-0.03); Imm Gran Pct Auto 0.3 % (0.0-0.4); Lymphocytes Absolute Auto 2.5 X10*3/uL (1.2-4.9); Mean Corpuscular HGB Conc 32.3 g/dl (31.0-35.0); Mean Corpuscular Hemoglobin 28.3 pg (27.0-33.0); Mean Corpuscular Volume 87.6 fL (80.0-98.0); Mean Platelet Volume 11.9 fL (9.4-12.3); Monocytes Absolute Auto 0.6 X10*3/uL (0.1-1.2); Monocytes Percent Auto 6.1 % (2-11); Neutrophils Absolute Auto 5.9 x10*3/uL (2.0-8.3); Neutrophils Percent Auto 64.4 % (45-73); Platelet Count 269 X10*3/uL (160-400); Red Blood Count 3.78 X10*6/uL (4.20-5.50); Red Cell Distribution Width 13.8 % (11.0-16.0); White Blood Count 9.2 X10*3/uL (4.8-10.8)
[2024-09-18 23:56] LABS: Alanine Aminotransferase 10 U/L (0-31); Alkaline Phosphatase 60 U/L (39-117); Anion Gap 9 (12-20); Aspartate Amino Transferase 17 U/L (5-31); Bilirubin Total 0.1 mg/dL (0.0-1.0); Blood Urea Nitrogen 13 mg/dL (9-16); Calcium 8.6 mg/dL (8.4-10.2); Carbon Dioxide 24 mmol/L (22-29); Chloride 110 mmol/L (96-108); Creatinine Clr Calc Pharmacy 184.8; Estimated Glomerular Filt Rate > 60; Glucose Random 95 mg/dL (60-115); Potassium 3.8 mmol/L (3.3-5.1); Sodium 139 mmol/L (135-145); Total Protein 6.8 g/dL (6.5-8.0)
--- NOTE | 2024-09-19 00:53 | MHC.EDTECH ---
Addendum entered by Charlotte Pedraza 09/19/24 00:55: Patient tried again and was able to give urine,obtained and sent to lab Original Note: Attempted to get a urine sample, pt is still unable to give, patient stated I went before I came in
[2024-09-19 01:07] LABS: Appearance Urine Clear; Color Urine Yellow; Glucose Urine UA Negative (Negative); Leukocyte Esterase Urine Trace (Negative); Nitrite Urine Negative (Negative); PH 5.5 (5.0-9.0); Specific Gravity - Urine >= 1.030 (1.005-1.025); UMIC TRIGGER UACC YES; Urine Blood Negative (Negative); Urine Ketones Trace mg/dL (Negative); Urine Protein Negative (Neg-Trace)
[2024-09-19 01:09] LABS: Bacteria Urine 2+ (None Seen); Hyaline Casts Urine 0-2 /LPF (0-2); RBC Urine 0-2 /HPF (0-2); UACC Culture Trigger YES
[2024-09-19 01:13] LABS: UPreg QC Valid YES; Urine Pregnancy NEGATIVE (NEGATIVE)
--- OUTSIDE RECORDS SUMMARY | 2024-09-19 01:37 | XMS_ITS | Encounter Summary ---
Author Organization [employer] Address [address] [place] [address] [address] [place] [address] Care Team Providers Care Chemical Equipment Repairer Name Role Phone Name, Javy FELIX Primary Care Provider [phone] Reason for Visit * Reason Onset Date Comments Letter for School/Work 03/05/2023 Encounter Details Date Type Department Care Team ([facility] Contact Info) Description 03/05/2023 Telephone [facility] MEDICINE [address] [place] [address] Name, MD Javy [address] [place] [address] Letter for School/Work Social History Tobacco Use [...] work. Any questions, please contact pt at [phone] documented in this encounter Plan of Treatment Not on file documented as of this encounter Visit Diagnoses Not on filedocumented in this encounter Care Teams Chemical Equipment Repairer Relationship Specialty Start Date End Date Name, MD Javy [address] [place] [address] PCP - General Family Medicine 11/07/16 documented as of this encounter
--- NOTE | 2024-09-19 02:38 | ED.GENADULT ---
HPI - General Adult General Chief complaint: General Medical Stated complaint: pain on left side and goes to the back Time Seen by Provider: 09/19/24 02:12 Source: patient Mode of arrival: ambulatory Limitations: no limitations History of Present Illness ED Provider: HPI narrative: Patient with a history of ovarian cyst in the past last ultrasound showed 3 x 2 cm cyst in the left luteal in 2002 comes here as she been having left lower quadrant pain for last 1 week feel pain in his going to the other side no nausea no vomiting patient is supposed to see a commissions coordinator but her specialist but she unable to get Related Data Previous Rx's ?Medication ?Instructions ?Recorded tirzepatide (weight loss) 2.5 2.5 mg (0.5 mL) subcut QWEEK #2 mL 06/08/24 mg/0.5 mL subcutaneous pen injector (Zepbound) cholecalciferol (vitamin D3) 125 125 mcg PO DAILY 90 days #90 caps 08/17/24 mcg (5,000 unit) capsule ibuprofen 600 mg tablet 600 mg PO Q6H PRN fever or pain 09/19/24 #30 tabs Allergies Allergy/AdvReac Type Severity Reaction Status Date / Time latex Allergy Severe Anaphylaxis Verified 09/18/24 22:46 red dye Allergy Severe Anaphylaxis Verified 09/18/24 22:46 amoxicillin Allergy Intermediate Blisters, Verified 09/18/24 22:46 hives Review of Systems Review of Systems: About 12 weeks Yes all other systems are reviewed and are negative PMFSH Past Medical History Medical History Congenital intra-abdominal adhesions Back pain Anemia Knee pain Anxiety Morbid obesity Migraine with aura Herpes simplex virus (HSV) infection HIV exposure delivery delivered Surgical History Status post sleeve gastrectomy Hx of section H/O breast biopsy Family History Family History Father Mental health disorder Mother Acute arthritis Carpal tunnel syndrome Sister Cervical cancer Sister No problems noted. Brother No problems noted. Son No problems noted. Social History Social History Are you a primary wound care technician to a significant other at home: Yes (son age 5, mother will help after surgery) Do you presently have visiting nurse or other home services: No Alcohol intake: never Patient Tobacco Use Status: Former Tobacco user Tobacco use type: Cigarette Advance Directives: No Advance Directives Information Provided: Yes service: No Current occupational status: disabled Sexual orientation: Straight/Heterosexual Gender identity: Female Physical Exam ED Vital Signs: Vital Signs - 24 hr 09/18/24 22:42 09/19/24 03:15 Temperature 98.2 F 98.3 F Pulse Rate 99 73 Respiratory Rate 18 18 Blood Pressure 109/64 112/68 Pulse Oximetry 98 97 Oxygen Delivery Method Room Air Room Air BMI result Body Mass Index 36.3 Appearance: Alert. Oriented X3. No acute distress. Eyes: no pallor or icterus ENT: Pharynx normal Oral Mucosa moist tympanic membrane intact no erythema, Neck: Normal inspection. Neck supple. CVS: Normal heart rate and rhythm. Pulses normal. Respiratory: No respiratory distress. Equal air entry bilateral, no wheezing/rales/rhonchi Abd: soft, deep tendon in the left lower quadrant Skin: Skin warm and dry. Normal skin color. Normal skin turgor. Extremities: No lower extremity edema, no calf tenderness Neuro: Oriented X 3. Medications Administered Discontinued Medications Generic Name Dose Route Start Last Admin Trade Name Freq PRN Reason Stop Dose Admin Ketorolac Tromethamine 60 mg 09/19/24 02:54 09/19/24 03:07 Ketorolac Tromethamine 60 Mg/2 Ml Vial IM 09/19/24 02:55 60 mg ONCE ONE Administration Medical Decision Making Medical Decision Making [facility] Narrative: Patient's lower abdominal pain likely with ovarian cyst clinically patient does not have significant pain no torsion suspected labs are stable patient advised to follow up with commissions coordinator as scheduled Differential Diagnosis Differential Diagnoses: The differential diagnosis associated with the presentation includes Diverticulitis/Iwill ovarian cyst/ectopic Admission/Observation Consideration of admission/observation: Escalation of care including admission/observation considered Lab Data [facility] Lab Attestation statement: I reviewed the patient's lab results. 09/18/24 23:21 09/18/24 23:21 Labs: Lab Results 09/18/24 09/19/24 Range/Units 23:21 00:58 WBC 9.2 (4.8-10.8) X10*3/uL RBC 3.78 L (4.20-5.50) X10*6/uL Hgb 10.7 L (12.0-16.0) g/dl Hct 33.1 L (37.0-47.0) % MCV 87.6 (80.0-98.0) fL MCH 28.3 (27.0-33.0) pg MCHC 32.3 (31.0-35.0) g/dl RDW 13.8 (11.0-16.0) % Plt Count 269 (160-400) X10*3/uL MPV 11.9 (9.4-12.3) fL Immature Gran % (Auto) 0.3 (0.0-0.4) % Neut % (Auto) 64.4 (45-73) % Lymph % (Auto) 27.0 (20-40) % [place] % (Auto) 6.1 (2-11) % Eos % (Auto) 1.5 (0-4) % Baso % (Auto) 0.7 (0-2) % Lymph # (Auto) 2.5 (1.2-4.9) X10*3/uL [place] # (Auto) 0.6 (0.1-1.2) X10*3/uL Eos # (Auto) 0.1 (0.0-0.4) X10*3/uL Baso # (Auto) 0.1 (0.0-0.2) X10*3/uL Abs Immat Gran (auto) 0.03 (0.00-0.03) X10*3/uL Absolute Neuts (auto) 5.9 (2.0-8.3) x10*3/uL Absolute Nucleated RBC 0.000 (0.0-0.012) X10*3/uL Nucleated RBC % (auto) 0.0 (0.0-0.2) /100WBC Sodium 139 (135-145) mmol/L Potassium 3.8 (3.3-5.1) mmol/L Chloride 110 H (96-108) mmol/L Carbon Dioxide 24 (22-29) mmol/L Anion Gap 9 L (12-20) BUN 13 (9-16) mg/dL Creatinine 0.53 (0.5-1.4) mg/dL Estim Creat Clear Calc 184.8 Estimated GFR > 60 Random Glucose 95 (60-115) mg/dL Calcium 8.6 (8.4-10.2) mg/dL Total Bilirubin 0.1 (0.0-1.0) mg/dL AST 17 (5-31) U/L ALT 10 (0-31) U/L Alkaline Phosphatase 60 (39-117) U/L Total Protein 6.8 (6.5-8.0) g/dL Albumin 4.0 (3.5-5.0) g/dL Urine Color Yellow Urine Appearance Clear Urine pH 5.5 (5.0-9.0) Ur Specific [place] >= 1.030 H (1.005-1.025) Urine Protein Negative (Neg-Trace) mg/dL Urine Glucose (UA) Negative (Negative) mg/dL Urine Ketones Trace (Negative) mg/dL Urine Blood Negative (Negative) Urine Nitrite Negative (Negative) Ur Leukocyte Esterase Trace H (Negative) Urine RBC 0-2 (0-2) /HPF Urine WBC 6-10 H (0-5) /HPF Ur Squamous Epith Cells 11-20 (0-2) /HPF Urine Bacteria 2+ (None Seen) Hyaline Casts 0-2 (0-2) /LPF Urine Test NEGATIVE (NEGATIVE) Discharge Plan Discharge Clinical Impression: Ovarian cyst Patient Disposition: Home, Self-Care Instructions: Ovarian Cyst (ED) Additional Instructions: Likely have ovarian cyst on the left side Need to follow up with your commissions coordinator Take ibuprofen for pain Request for the ultrasound as outpatient was given to you schedule it for as soon as possible Report to the ER if worsening of the pain/fever/vomiting Prescriptions: New ibuprofen 600 mg tablet 600 mg PO Q6H PRN (Reason: fever or pain) Qty: 30 0RF No Action cholecalciferol (vitamin D3) 125 mcg (5,000 unit) capsule 125 mcg PO DAILY 90 Days Qty: 90 2RF Zepbound 2.5 mg/0.5 mL pen injector 2.5 mg subcut QWEEK Qty: 2 0RF Rx Instructions: for 4 weeks Interventions: ED Discharge Assessment Last Done: 09/19/24 03:15 Discharge Date/Time: 09/19/24 03:16 Print Language: Other
[2024-09-19] MEDS: Ketorolac Tromethamine 60 MG/2 ML VIAL IM (03:07)
[2024-09-19 03:15] VITALS: BP 112/68; PULSE 73; RESP 18; TEMP 36.8; O2SAT 97
== END 2024-09-19 03:16 | disposition home or self-care (01) ==
PROVIDERS: Emergency Provider Internal Medicine; PCP Internal Medicine Geriatric Medicine
DX: N83.209 Unspecified ovarian cyst, unspecified side (principal); M54.50 Low back pain, unspecified; R10.32 Left lower quadrant pain; Z79.899 Other long term (current) drug therapy; Z87.891 Personal history of nicotine dependence; Z98.84 Bariatric surgery status
CPT/HCPCS: 36415; 80053; 81001; 81025; 85025; 87086; 96372; 99283; 99284; J1885